=== PATIENT | female | born 1950 | race Caucasian/White ===

== ENCOUNTER 2018-02-01 16:41 | Inpatient (IN) | payer OTHER, BC ==
--- OUTSIDE RECORDS SUMMARY | 2018-02-01 16:43 | XMS REPORT | Clinical Summary ---
:1950 Author Organization [facility] Address [address] [place] [address] Care Team Providers Name Role Phone Moe Roach MD Primary Care Provider Allergies Active Allergy Reactions Severity Noted Date Comments Morphine Other (See Comments) 12/02/2015 VOMITING Other 12/02/2015 EGGS-N/V Current Medications Prescription Sig. Disp. Refills Start Date End Date Status levothyroxine Take 100 mcg by Active (LEVOTHROID) 100 MCG mouth every tablet morning. HYDROcodone-acetaminophen Take 1 tablet by Active (NORCO 10-325) 10-325 mg mouth every 6 (six) per tablet hours as needed for moderate pain. carvedilol (COREG) 12.5 Take 12.5 mg by Active MG tablet mouth 2 (two) times a day with meals. metoclopramide (REGLAN) 5 Take 5 mg by mouth Active MG tablet 4 (four) times a day. 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 Social History Tobacco Use Types Packs/Day Years Used Date Never Smoker Alcohol Use Drinks/Week oz/Week Comments No Sex Assigned at Date Recorded Not on file Last Filed Vital Signs Not on file Plan of Treatment Health Maintenance Due Date Last Done Comments BREAST CANCER SCREENING 11/09/1999 COLON CANCER SCREENING 11/09/1999 SHINGRIX VACCINE (#1) 11/09/1999 ZOSTER VACCINE 2009 PNEUMOCOCCAL POLYSACCHARIDE VACCINE AGE 65 AND OVER 2014 PNEUMOCOCCAL-13 2014 INFLUENZA VACCINE 01/24/2018 Implants Implanted Type Area Levelman Device Expiration Model / Identifier Date Serial / Lot Cement Bone Gm Hiviscocty 40gr Smartmix - [id number] Human N/A: DEPUY 2017 [id number] / Implanted: Qty: 1 on 12/09/2015 by Sancho Jason MD Tissue N/A ORTHO- KNEES / Implants [id number] Cement Bone Gm Hiviscocty 40gr Smartmix - [id number] Human Right: DEPUY [id number] / Implanted: Qty: 1 on 12/09/2015 by Sancho Jason MD Tissue Knee ORTHO- KNEES / Implants [id number] Clyde Fem Slv Ful Por 34mm - [id number] IPM IMPLANT Right: DEPUY 2024 [id number] / Implanted: Qty: 1 on 12/09/2015 by Sancho Jason MD DEVICES Knee [employer] [id number] Lps Univ Tib Hin Ins Sm 26mm - [id number] IPM IMPLANT Right: DEPUY 2016 [id number] / Implanted: Qty: 1 on 12/09/2015 by Sancho Jason MD DEVICES Knee [employer] [id number] S-Rom Noiles Rotating Hinge Noiles Rotating Hinge (Nrh) Knee Size 10 Mm Distal Augmentation Blocks, Extra Small/Small/Medium - [id number] IPM IMPLANT Right: DEPUY 07/26/2024 [id number] / Implanted: Qty: 1 on 12/09/2015 by Sancho Jason MD DEVICES Knee [employer] [id number] S-Rom Noiles Rotating Hinge Noiles Rotating Hinge (Nrh) Knee Size 10 Mm Distal Augmentation Blocks, Extra Small/Small/Medium - [id number] IPM IMPLANT Right: DEPUY 07/26/2024 [id number] / Implanted: Qty: 1 on 12/09/2015 by Sancho Jason MD DEVICES Knee [employer] [id number] Tray Rev Mbt 3x4.8mm - [id number] Knee Joint Right: DEPUY ORTHO 09/23/2025 [id number] / Implanted: Qty: 1 on 12/09/2015 by Sancho Jason MD Implants Knee / [id number] Sleeve Tib 45mm - [id number] Knee Joint Right: DEPUY 04/25/2025 [id number] / Implanted: Qty: 1 on 12/09/2015 by Sancho Jason MD Implants Knee ORTHO- KNEES / [id number] Stem Knee Flt Univl [id number] - [id number] Knee Joint Right: DEPUY 02/23/2025 [id number] / Implanted: Qty: 1 on 12/09/2015 by Sancho Jason MD Implants Knee ORTHO- KNEES / [id number] Stem Knee Flt Univl [id number] - [id number] Knee Joint Right: DEPUY 09/23/2025 [id number] / Implanted: Qty: 1 on 12/09/2015 by Sancho Jason MD Implants Knee ORTHO- KNEES / [id number] Component Fml Ant-Pstr Med-Lat Rt Rotng Hinge Sm [id number] - [id number] Knee Joint Right: DEPUY 03/25/2019 [id number] / Implanted: Qty: 1 on 12/09/2015 by Sancho Jason MD Implants Knee ORTHO- KNEES / [id number] Results Not on fileafter 01/31/2017 Insurance Payer Benefit Plan / Group Subscriber ID Type Phone Address MEDICARE MEDICARE PART A AND B xxxxxxxxxx Medicare [place], [place] BCBS BCBS OUT OF STATE xxxxxxxxxxxx PPO [phone] [place], [place] [id number]
--- NOTE | 2018-02-01 17:18 | RAD REPORT ---
EXAM DESCRIPTION: CT - Stone Protocol - 02/01/2018 5:07 pm CLINICAL HISTORY: Right flank pain COMPARISON: February 2016 TECHNIQUE: Axial 5 mm thick images were obtained without oral or IV contrast. The [id number] span s the entirety of the system including uppermost abdomen and lung bases. All CT scans are performed using dose optimization technique as appropriate and may include automated exposure control or mA/KV adjustment according to patient size. FINDINGS: Mild right-sided hydroureter and mild to moderate hydronephrosis of the pelvis on the righ t secondary to a 2 mm right UVJ calculus. Perinephric stranding and edema are present. A 2 mm calyx c alcification noted lower pole on the right. No left-sided calculus or hydronephrosis. No bladder calc ulus. No suspicious renal masses. Isodense masses and pyelonephritis are not excluded on a stone prot ocol CT scan. Uterus is absent. Ovaries are absent or atrophic. Imaged portions of the liver, spleen and pancreas show no suspicious findings on non-contrast imaging . Cholecystectomy clips are present. No biliary tree dilatation. No significant adrenal finding. No suspicious bowel findings. Sigmoid diverticulosis present without diverticulitis. No mass or bulky lymphadenopathy. Since the prior study there has been surgical repair of a ventral h ernia. There is stranding in the fatty tissues superficial and deep to the anterior abdominal wall. T hese findings are not outside of normal range for surgical procedure performed. There is no history t o indicate any localized symptoms. No air, abscess, foreign body or other suspicious finding at the h ernia repair site. No free air, free fluid or inflammatory stranding. No mass or bulky lymphadenopathy. No significant bony abnormality. IMPRESSION: Mild to moderate dilatation of the right-sided collecting system secondary to a 2 mm UVJ calculus. Isodense masses and pyelonephritis are not excluded on stone protocol technique.
[2018-02-01] MEDS ORDERED: MEPERIDINE HCL 25 MG/0.5 ML ONE (17:31)
[2018-02-01] MEDS ORDERED: ONDANSETRON 4 MG/2 ML VIAL ONE (17:31)
[2018-02-01] MEDS ORDERED: NA CHLORIDE 0.9% 500 ML ONE ×2 (17:39→18:53)
[2018-02-01] MEDS ORDERED: ACETAMINOPHEN 325 MG TABLET ONE (17:39)
[2018-02-01] MEDS ORDERED: TAMSULOSIN 0.4 MG SR CAP ONE (17:54)
[2018-02-01 18:29] LABS: Urine Blood 3+ (NEG); Urine Glucose NEGATIVE (NEG); Urine Protein 1+ (NEG)
[2018-02-01 18:35] LABS: Absolute Lymphocytes (CBC) 0.3 K/uL (0.7-4.9); Absolute Neutrophil 2.7 K/uL (1.8-8.0); Basophils % 0.4 % (0-1.3); Eosinophils % 2.8 % (0-4.4); Hematocrit 46.6 % (36.0-45.0); Lymphocytes % 9.5 % (15.3-44.8); MCH 31.5 pg (27.0-35.0); MCV 96.4 fL (80-100); MPV 10.5 fL (7.6-11.3); Monocytes % 0.4 % (3.3-12.3); RBC Red Blood Cell Count 4.83 M/uL (3.86-4.86)
[2018-02-01 18:37] LABS: Urine Amorphous Sediment TRACE /HPF (NONE SEEN); Urine Bacteria <20 /HPF (<20); Urine Culture Reflex Order REFLEXED; Urine RBC 20-50 /HPF (NONE SEEN)
--- NOTE | 2018-02-01 18:43 | ER ---
Nurse's Notes [facility] Name: Vera Chong Age: 67 yrs Sex: Female : 1950 Arrival Date: 02/01/2018 Time: 16:51 Bed 8 Private MD: Diagnosis: Pyelonephritis;Ureterolithiasis Presentation: 02/01 17:01 Presenting complaint: Patient states: I was sitting in the car and it felt like la1 something "broke loose" and I am having extremely bad back pain. It feels like a pulsating. Transition of care: patient was not received from another setting of care. Onset of symptoms was February 01, 2018. Risk Assessment: Do you want to hurt yourself or someone else? Patient reports no desire to harm self or others. Initial Sepsis Screen: Does the patient meet any 2 criteria? No. Patient's initial sepsis screen is negative. Does the patient have a suspected source of infection? No. Patient's initial sepsis screen is negative. Care prior to arrival: None. 17:01 Method Of Arrival: Wheelchair la1 17:01 Acuity: HOLLIE 2 la1 Historical: - Allergies: 17:03 Morphine; la1 - Home Meds: 17:37 hydrocodone-acetaminophen 10-325 mg Oral tab 1 tab every 4 hours [Active]; tizanidine 2 mg2 mg Oral cap every 6 hours [Active]; levothyroxine 100 mcg tab 1 tab once daily [Active]; Lyrica Oral [Active]; leflunomide 20 mg Oral tab 1 tab once daily [Active]; 17:42 carvedilol 12.5 mg Oral tab 1 tab 2 times per day [Active]; prednisolone Oral [Active]; mg2 19:00 alprazolam 0.25 mg Oral tab 1 tab 3 times per day [Active]; lisinopril 10 mg Oral tab 1 bp tab once daily [Active]; metoclopramide HCl 5 mg Oral tab 1 tab once daily [Active]; prednisone 1 mg Oral tab once daily [Active]; - PMHx: 17:03 Fibromyalgia; Hyperlipidemia; Hypertension; Hypothyroidism; Rheumatoid Arthritis; la1 - Immunization history:: Adult Immunizations up to date. - Social history:: Smoking status: unknown. - Family history:: not pertinent. - Ebola Screening: : No symptoms or risks identified at this time. - Hospitalizations: : No recent hospitalization is reported. Screenin:26 Abuse screen: Denies threats or abuse. Denies injuries from another. Nutritional mg2 screening: No deficits noted. Tuberculosis screening: No symptoms or risk factors identified. Fall Risk Gait- Weak (10 pts.). Assessment: 17:15 General: Appears uncomfortable, Behavior is anxious. Pain: Complains of pain in pelvis mg2 and right mid back Pain does not radiate. Pain currently is 10 out of 10 on a pain scale. Quality of pain is described as aching, Pain began gradually, Is intermittent, Aggravated by increased activity, repositioning, weight bearing. Neuro: Level of Consciousness is awake, alert, obeys commands, Oriented to person, place, time, situation. Cardiovascular: Capillary refill < 3 seconds Patient's skin is warm and dry. Respiratory: Airway is patent Respiratory effort is even, Respiratory pattern is regular, symmetrical, hyperventilation. GI: No signs and/or symptoms were reported involving the gastrointestinal system. : No signs and/or symptoms were reported regarding the genitourinary system. EENT: No signs and/or symptoms were reported regarding the EENT system. Derm: Skin is intact, Skin is pink, warm \\T\\ dry. normal. 17:15 Musculoskeletal: No signs and/or symptoms reported regarding the musculoskeletal system.mg2 19:00 Reassessment: RECD REPORT FROM PROSPER SHINE. 67YO WF P/W BACK AND FLANK PAIN. ADMIT IN bp PROCESS FOR FEVER AND 2MM R UVJ CALCULUS. 20:56 Reassessment: ADMIT COMPLETED, BED ASSIGNED, PT S/S RESOLVED, AFEBRILE AT THIS TIME. bp 21:09 Reassessment: Pt is A\\T\\O x 4, resp unlabored, IV site intact, family at bedside. Report bb called to Roni SHINE pt transferred to room 214 via stretcher. Vital Signs: 17:02 BP 170 / 89; Pulse 88; Resp 19; Temp 97.2; Pulse Ox 98% on R/A; la1 17:25 Weight 117.03 kg; Height 5 ft. 0 in. (152.40 cm); mg2 17:32 Temp 100.1(O); mg2 18:46 BP 195 / 100; Pulse 105; Resp 27; Pulse Ox 95% on 2 lpm NC; la1 18:58 Temp 102.4(O); la1 19:11 BP 166 / 94; Pulse 113; Resp 26; Pulse Ox 92% on 4 lpm NC; bp 20:54 BP 106 / 61; Pulse 99; Resp 20; Temp 97.8; Pulse Ox 92% ; bp 21:03 Temp 97.2(TE); bp 17:25 Body Mass Index 50.39 (117.03 kg, 152.40 cm) mg2 ED Course: 16:51 Patient arrived in ED. bd 16:52 Abner Carvajal MD is Attending Physician. rn 16:[address] vm2 17:00 Prosper Osborne, RN is Primary Nurse. la1 17:02 Triage completed. la1 17:02 Arm band placed on left wrist. la1 17:07 CT Stone Protocol In Process Unspecified. EDMS 17:11 EKG done, by pharmacy intake technician. reviewed by Abner Carvajal MD. sm3 17:44 Inserted saline lock: 24 gauge in left upper arm, using aseptic technique. Blood la1 collected. 17:45 Placed in gown. Bed in low position. Call light in reach. Side rails up X 1. Pulse ox la1 on. NIBP on. 18:23 Urine collected: straight cath specimen, cloudy. iw 18:41 Hipolito James MD is Hospitalizing Provider. rn 20:54 No provider procedures requiring assistance completed. Patient admitted, IV remains in bp place. Administered Medications: 17:03 CANCELLED (Duplicate Order): morphine 2 mg IVP once rn 17:42 Drug: Tylenol 650 mg Route: PO; la1 17:58 Follow up: Response: No adverse reaction la1 17:43 Drug: Demerol 25 mg Route: IVP; Site: left upper arm; la1 17:58 Follow up: Response: No adverse reaction; Pain is decreased la1 17:43 Drug: NS 0.9% 500 ml Route: IV; Rate: bolus; Site: left upper arm; la1 19:21 Follow up: IV Status: Completed infusion; IV Intake: 500ml bp 17:44 Drug: Zofran 4 mg Route: IVP; Site: left upper arm; la1 17:57 Follow up: Response: No adverse reaction; Nausea is decreased la1 17:57 Drug: Flomax 0.4 mg Route: PO; la1 17:58 Follow up: Response: No adverse reaction la1 17:57 Drug: Magnesium Sulfate 1 grams Route: IVPB; Infused Over: 1 hrs; Site: left upper arm; la1 19:21 Follow up: IV Status: Completed infusion; IV Intake: 50ml bp 18:57 Drug: NS 0.9% 500 ml Route: IV; Rate: bolus; Site: left upper arm; la1 19:20 Follow up: IV Status: Infusion continued upon admission bp 18:57 Drug: TORadol 30 mg Route: IVP; Site: left upper arm; la1 19:22 Follow up: Response: Pain is decreased bp 18:58 Drug: Rocephin - (cefTRIAXone) 1 grams Route: IVPB; Infused Over: 30 mins; Site: left la1 upper arm; 19:22 Follow up: IV Status: Completed infusion bp 19:03 Drug: Ibuprofen 800 mg Route: PO; ea 19:22 Follow up: Response: No adverse reaction bp Intake: 19:21 IV: 500ml; Total: 500ml. bp 19:21 IV: 50ml; Total: 550ml. bp Outcome: 18:42 Decision to Hospitalize by Provider. rn 21:08 Admitted to Tele accompanied by tech, family with patient, via stretcher, room 214, bb with oxygen, with chart, Report called to Roni SHINE 21:08 Condition: stable 21:11 Patient left the ED. bb Signatures: Dispatcher [employer] EDMS Andreina Barnes Brenda, RN RN bb Williams, Irene, Abner Burrows RN, MD MD rn Attema, Lee, RN RN la1 McGuire, Victoria [facility] Sowmya Jane RN RN ea Peltier, Brian, RN RN bp Gardose, Michele, Valentina Kaufman RN [facility]
--- NOTE | 2018-02-01 18:43 | EDPHYS ---
Physician Documentation [facility] Name: Vera Chong Age: 67 yrs Sex: Female : 1950 Arrival Date: 02/01/2018 Time: 16:51 Bed 8 Private MD: ED Physician Abner Carvajal HPI: 02/01 16:54 This 67 yrs old Female presents to ER via Unassigned with complaints of flank rn pain. 16:54 The patient complains of pain in the right mid back. The pain radiates to the pelvis. rn Onset: The symptoms/episode began/occurred 1.5 hour(s) ago. Modifying factors: The symptoms are alleviated by nothing. the symptoms are aggravated by movement. Severity of pain: At its worst the pain was moderate in the emergency department the pain is unchanged. The patient has not experienced similar symptoms in the past. Reports sudden onset right flank pain, radiates to right groin, no trauma, assoc with nausea/vomiting/diarrhea, no fever, no chest pain, feels sob when pain comes. Intermittent pain.. Historical: - Allergies: 17:03 Morphine; la1 - Home Meds: 17:37 hydrocodone-acetaminophen 10-325 mg Oral tab 1 tab every 4 hours [Active]; tizanidine 2 mg2 mg Oral cap every 6 hours [Active]; levothyroxine 100 mcg tab 1 tab once daily [Active]; Lyrica Oral [Active]; leflunomide 20 mg Oral tab 1 tab once daily [Active]; 17:42 carvedilol 12.5 mg Oral tab 1 tab 2 times per day [Active]; prednisolone Oral [Active]; mg2 19:00 alprazolam 0.25 mg Oral tab 1 tab 3 times per day [Active]; lisinopril 10 mg Oral tab 1 bp tab once daily [Active]; metoclopramide HCl 5 mg Oral tab 1 tab once daily [Active]; prednisone 1 mg Oral tab once daily [Active]; - PMHx: 17:03 Fibromyalgia; Hyperlipidemia; Hypertension; Hypothyroidism; Rheumatoid Arthritis; la1 - Immunization history:: Adult Immunizations up to date. - Social history:: Smoking status: unknown. - Family history:: not pertinent. - Ebola Screening: : No symptoms or risks identified at this time. - Hospitalizations: : No recent hospitalization is reported. ROS: 16:54 Constitutional: Negative for fever, chills, and weight loss, Eyes: Negative for injury, rn pain, redness, and discharge, Neck: Negative for injury, pain, and swelling, Cardiovascular: Negative for chest pain, palpitations, and edema, Respiratory: Negative for shortness of breath, cough, wheezing, and pleuritic chest pain, Abdomen/GI: + right flank pain, + nausea/vomiting/diarrhea Back: Negative for injury MS/Extremity: Negative for injury and deformity, Skin: Negative for injury, rash, and discoloration, Neuro: Negative for headache, weakness, numbness, tingling, and seizure. Exam: 16:54 Constitutional: This is a well developed, well nourished patient who is awake, alert, rn appears uncomfortable Head/Face: Normocephalic, atraumatic. Eyes: Pupils equal round and reactive to light, extra-ocular motions intact. Lids and lashes normal. Conjunctiva and sclera are non-icteric and not injected. Cornea within normal limits. Periorbital areas with no swelling, redness, or edema. Neck: Trachea midline, no thyromegaly or masses palpated, and no cervical lymphadenopathy. Supple, full range of motion without nuchal rigidity, or vertebral point tenderness. No Meningismus. Cardiovascular: tachycardic, regular, no murmur Respiratory: + mild tachypnea, no retractions, clear bilateral breath sounds Abdomen/GI: soft, mild right sided abd tenderness Back: No spinal tenderness. No CVA tenderness, mild right perilumbar muscular tenderness MS/ Extremity: Pulses equal, no cyanosis. Neurovascular intact. Full, normal range of motion. Equal circumference. Neuro: Awake and alert, GCS 15, oriented to person, place, time, and situation. Cranial nerves II-XII grossly intact. Motor strength 5/5 in all extremities. Sensory grossly intact. Cerebellar exam normal. Normal gait. Vital Signs: 17:02 BP 170 / 89; Pulse 88; Resp 19; Temp 97.2; Pulse Ox 98% on R/A; la1 17:25 Weight 117.03 kg; Height 5 ft. 0 in. (152.40 cm); mg2 17:32 Temp 100.1(O); mg2 18:46 BP 195 / 100; Pulse 105; Resp 27; Pulse Ox 95% on 2 lpm NC; la1 18:58 Temp 102.4(O); la1 19:11 BP 166 / 94; Pulse 113; Resp 26; Pulse Ox 92% on 4 lpm NC; bp 20:54 BP 106 / 61; Pulse 99; Resp 20; Temp 97.8; Pulse Ox 92% ; bp 21:03 Temp 97.2(TE); bp 17:25 Body Mass Index 50.39 (117.03 kg, 152.40 cm) mg2 MDM: 16:52 Patient medically screened. rn 18:34 Differential diagnosis: nephrolithiasis, pyelonephritis, UTI. Data reviewed: vital rn signs, nurses notes. 18:40 Counseling: I had a detailed discussion with the patient and/or guardian regarding: the rn historical points, exam findings, and any diagnostic results supporting the discharge/admit diagnosis, lab results, radiology results, the need for further work-up and treatment in the hospital. Response to treatment: the patient's symptoms have mildly improved after treatment, and as a result, I will admit patient. Admission orders: after a detailed discussion of the patient's condition and case, the admit orders are written by me. ED course: Pt with fever, UTI/pyelonephritis, 2mm stone, improved pain but febrile/tachycardic, and pain not controlled, will admit.. 02/01 16:54 Order name: Basic Metabolic Panel rn 02/01 16:54 Order name: CBC with Diff rn 02/01 16:54 Order name: Creatinine for Radiology; Complete Time: 18:33 rn 02/01 16:54 Order name: Hepatic Function rn 02/01 16:54 Order name: Lipase rn 02/01 16:54 Order name: Urine Microscopic Only; Complete Time: 18:39 rn 02/01 16:54 Order name: CT Stone Protocol; Complete Time: 17:30 rn 02/01 16:54 Order name: Troponin (emerg Dept Use Only); Complete Time: 18:33 rn 02/01 18:24 Order name: Urine Dipstick--Ancillary (enter results); Complete Time: 18:33 bd 02/01 18:39 Order name: Urine Culture EDGA 02/01 16:54 Order name: IV Saline Lock; Complete Time: 17:44 rn 02/01 16:54 Order name: Labs collected and sent; Complete Time: 17:44 rn 02/01 16:54 Order name: Urine Dipstick-Ancillary (obtain specimen); Complete Time: 18:23 rn 02/01 16:54 Order name: EKG - Nurse/Tech; Complete Time: 17:03 rn 02/01 16:54 Order name: EKG; Complete Time: 16:54 rn Administered Medications: 17:03 CANCELLED (Duplicate Order): morphine 2 mg IVP once rn 17:42 Drug: Tylenol 650 mg Route: PO; la1 17:58 Follow up: Response: No adverse reaction la1 17:43 Drug: Demerol 25 mg Route: IVP; Site: left upper arm; la1 17:58 Follow up: Response: No adverse reaction; Pain is decreased la1 17:43 Drug: NS 0.9% 500 ml Route: IV; Rate: bolus; Site: left upper arm; la1 19:21 Follow up: IV Status: Completed infusion; IV Intake: 500ml bp 17:44 Drug: Zofran 4 mg Route: IVP; Site: left upper arm; la1 17:57 Follow up: Response: No adverse reaction; Nausea is decreased la1 17:57 Drug: Flomax 0.4 mg Route: PO; la1 17:58 Follow up: Response: No adverse reaction la1 17:57 Drug: Magnesium Sulfate 1 grams Route: IVPB; Infused Over: 1 hrs; Site: left upper arm; la1 19:21 Follow up: IV Status: Completed infusion; IV Intake: 50ml bp 18:57 Drug: NS 0.9% 500 ml Route: IV; Rate: bolus; Site: left upper arm; la1 19:20 Follow up: IV Status: Infusion continued upon admission bp 18:57 Drug: TORadol 30 mg Route: IVP; Site: left upper arm; la1 19:22 Follow up: Response: Pain is decreased bp 18:58 Drug: Rocephin - (cefTRIAXone) 1 grams Route: IVPB; Infused Over: 30 mins; Site: left la1 upper arm; 19:22 Follow up: IV Status: Completed infusion bp 19:03 Drug: Ibuprofen 800 mg Route: PO; ea 19:22 Follow up: Response: No adverse reaction bp Disposition: 02/01/18 18:42 Hospitalization ordered by Hipolito James for Inpatient Admission. Preliminary diagnosis are Pyelonephritis, Ureterolithiasis. - Bed requested for Telemetry/MedSurg (Inpatient). - Status is Inpatient Admission. bb - Condition is Stable. - Problem is new. - Symptoms have improved. UTI on Admission? Yes Signatures: Dispatcher [employer] EDMS Khushboo Schroeder, RN Maribel Garvey RN RN bb Nieto, Roman, MD MD rn Attema, Lee RN FÁTIMA la1 Sowmya Jane RN Fredi Kothari ea RN RN bp Arnie Daniel RN RN mg2 Corrections: (The following items were deleted from the chart) 17:03 16:54 morphine 2 mg IVP once ordered. rn rn 20:07 18:42 Hospitalization Ordered by Hipolito James MD for Inpatient Admission. Preliminary diagnosis is Pyelonephritis; Ureterolithiasis. Bed requested for Telemetry/MedSurg (Inpatient). Status is Inpatient Admission. Condition is Stable. Problem is new. Symptoms have improved. UTI on Admission? Yes. rn 21:11 20:07 02/01/2018 18:42 Hospitalization Ordered by Hipolito James MD for Inpatient bb Admission. Preliminary diagnosis is Pyelonephritis; Ureterolithiasis. Bed requested for Telemetry/MedSurg (Inpatient). Status is Inpatient Admission. Condition is Stable. Problem is new. Symptoms have improved. UTI on Admission? Yes. sameer
[2018-02-01] MEDS ORDERED: KETOROLAC 30 MG/ML INJ ONE (18:53)
[2018-02-01] MEDS ORDERED: CEFTRIAXONE/SWI 1gm 1 GM/10 ML SYR ONE (18:54)
[2018-02-01] MEDS ORDERED: IBUPROFEN 400 MG TAB ONE (19:06)
--- NOTE | 2018-02-01 21:01 | P.HP ---
Certification for Inpatient Patient admitted to: Inpatient With expected LOS: >2 Midnights Practitioner: I am a practitioner with admitting privileges, knowledge of patient current condition, hospital course, and medical plan of care. Services: Services provided to patient in accordance with Admission requirements found in Title 42 Section 412.3 of the Code of Federal Regulations Patient History Date of Service: 02/01/18 Reason for admission: obsturctive urinary stone History of Present Illness: Ms Chong is a 67 years old woman with history of HTN, Dyslipidemia, hypothyroidism, obesity, and RA, who start about 3:00 PM today, with severe right flank pain, radiated to right yasir. Intensity was 10/10, described as colicky, associated with nausea and vomiting. She has never had this problem in the past. She denied fever but has had chills this afternoon. In ED lab work was remarkable for 3.1K WBC, afebrile, BMP is still pending. CT stone protocol remarkable for mild to moderate dilatation of the right-sided collecting system secondary to a 2 mm UVJ calculus. Possible Pyelonephritis. Allergies No Known Allergies Allergy (Unverified 06/09/17 11:37) Home medications list reviewed: Yes Home Medications: Carvedilol [Coreg*] 12.5 mg PO BID 03/04/16 Metoclopramide HCl [Reglan] 5 mg PO Q6H 03/04/16 Tizanidine HCl 2 mg PO BID 03/04/16 ALPRAZolam [Xanax*] 0.25 mg PO BID PRN 06/08/17 Calcium Carbonate [Calcium] 1,500 mg PO DAILY 06/08/17 Cholecalciferol (Vitamin D3) [Vitamin D 1000 Iu Tab*] 1,000 unit PO DAILY Hydrocodone 10/APAP 325 [[place] 10/325*] 1 tab PO TIDP PRN 06/08/17 Leflunomide 20 mg PO DAILY 06/08/17 Levothyroxine [Synthroid*] 0.1 mg PO [id number] 06/08/17 Lisinopril [Prinivil*] 10 mg PO DAILY AFTER SUPPER 06/08/17 Hydrocodone 7.5/APAP 325 [[place] 7.5/325 mg*] 1 tab PO Q4H PRN tab 06/11/17 - Past Medical/Surgical History Diabetic: No -: Fibromyalgia -: Rheumatoid arthritis -: Hyperlipidemia -: Hypertension -: Hypothyroidism -: Obesity -: Chronic knee pain -: Chronic back pain -: Back surgery -: Bilat knee replacement -: Hysterectomy -: Cholecystectomy -: Thyroidectomy -: Appendectomy Psychosocial/ Personal History: She is . She has 1 child. She does not work. - Family History Family History: Reviewed- Non-Contributory - Family History Father -: Cancer Mother -: Heart disease, Hypertension, Stroke - Social History Smoking Status: Never smoker Alcohol use: No CD- Drugs: No Caffeine use: No Place of Residence: Home Review of Systems 10-point ROS is otherwise unremarkable Physical Examination - Physical Exam General: Alert, In no apparent distress HEENT: Atraumatic, PERRLA, Mucous membr. moist/pink, EOMI, Sclerae nonicteric Neck: Supple, 2+ carotid pulse no bruit, No LAD, Without JVD or thyroid abnormality Respiratory: Clear to auscultation bilaterally, Normal air movement Cardiovascular: Regular rate/rhythm, Normal S1 S2 Gastrointestinal: Normal bowel sounds, No tenderness Musculoskeletal: Tenderness (right flank) Integumentary: No rashes Neurological: Normal speech, Normal strength at 5/5 x4 extr, Normal tone, Normal affect Lymphatics: No axilla or inguinal lymphadenopathy - Studies Laboratory Data (last 24 hrs) 02/01/18 17:30: Creatinine 1.20 02/01/18 17:30: WBC 3.1 L, Hgb 15.2 H, Hct 46.6 H, Plt Count 148 L Assessment and Plan - Problems (Diagnosis) (1) Hydronephrosis with renal and ureteral calculous obstruction Current Visit: Yes Status: Acute (2) Hypertension Onset Date: 02/17/15 Current Visit: No Status: Chronic Qualifiers: Hypertension type: essential hypertension Qualified Code(s): I10 - Essential (primary) hypertension (3) Hypothyroidism Onset Date: 02/17/15 Current Visit: No Status: Chronic Qualifiers: Hypothyroidism type: unspecified Qualified Code(s): E03.9 - Hypothyroidism , unspecified (4) Obesity Onset Date: 03/04/16 Current Visit: No Status: Chronic Qualifiers: Obesity type: unspecified obesity type Qualified Code(s): E66.01 - Morbid ( severe) obesity due to excess calories (5) Rheumatoid arthritis Current Visit: No Status: Chronic Qualifiers: Rheumatoid arthritis location: multiple sites Rheumatoid factor presence: unspecified presence Qualified Code(s): M06.9 - Rheumatoid arthritis, unspecified - Plan The patient will be admitted to the hospital due to obstructive right UVJ stone. Will start empiric antibiotic treatment, pain medication, IV fluids, keep her NPO, consult Dr Helms. - Advance Directives Does patient have a Living Will: No Does patient have a Durable POA for Healthcare: No - Code Status/Comfort Care Code Status Assessed: Yes Code Status: Full Code
--- NOTE | 2018-02-01 21:20 | EKG ---
Test Date: 2018-02-01 Test Time: 16:55:02 [facility] Professional: DONNY MEASUREMENT RESULTS: Intervals: Rate: 82 HI: 172 QRSD: 76 QT: 346 QTc: 404 [place]: P: 37 HI: 172 QRS: 31 T: 59 INTERPRETIVE STATEMENTS: Normal sinus rhythm Normal ECG Compared to ECG 03/03/2016 23:51:37 No significant changes Electronically Signed On 02-01-18 21:20:04 CDT by Luis Miguel Javed
[2018-02-01 21:24] LABS: Potassium 3.6 mmol/L (3.5-5.1)
[2018-02-01 21:25] LABS: Bilirubin Total 1.5 mg/dL (0.2-1.0); Protein, Total 6.2 g/dL (6.4-8.2)
[2018-02-01 21:45] LABS: Blood Morphology Comment NOT SEEN (NOT SEEN); Platelet Estimate ADEQ
[2018-02-01] MEDS ORDERED: ACETAMINOPHEN 500 MG TAB PO PRN (21:45)
[2018-02-01] MEDS ORDERED: Levofloxacin 750mg IV 750 MG/150 ML BAG IV SCH (22:00)
[2018-02-01] MEDS ORDERED: KCL 20 MEQ/100 mL IVPB 20 MEQ/100 ML BAG IV SCH (22:00)
[2018-02-01] MEDS: NA CHLORIDE 0.9% 1,000 ML IV SCH (22:08)
[2018-02-02] MEDS: ONDANSETRON 4 MG/2 ML VIAL IV PRN (05:15)
[2018-02-02] MEDS: KETOROLAC 30 MG/ML INJ IV PRN (05:22)
[2018-02-02 05:35] LABS: Absolute Lymphocytes (CBC) 0.5 K/uL (0.7-4.9); Absolute Monocytes 1.1 K/uL (0.1-1.3); Absolute Neutrophil 19.2 K/uL (1.8-8.0); Basophils % 0.4 % (0-1.3); Eosinophils % 0.3 % (0-4.4); Hematocrit 39.4 % (36.0-45.0); Lymphocytes % 2.6 % (15.3-44.8); MCH 31.8 pg (27.0-35.0); MCV 97.3 fL (80-100); Monocytes % 5.1 % (3.3-12.3); RBC Red Blood Cell Count 4.04 M/uL (3.86-4.86)
[2018-02-02 05:39] LABS: Potassium 4.6 mmol/L (3.5-5.1)
[2018-02-02 06:20] LABS: Blood Morphology Comment NOT SEEN (NOT SEEN); Platelet Estimate DECR
[2018-02-02] MEDS: PANTOPRAZOLE 40MG TABLET PO SCH (06:21)
[2018-02-02] MEDS ORDERED: LOPERAMIDE HCL 2 MG CAPSULE PO PRN (08:58)
[2018-02-02] MEDS: HYDROCODONE/APAP 7.5/325 MG TAB PO SCH ×3 (09:00→22:57)
[2018-02-02] MEDS ORDERED: HOME MED 1 EA UNK (Leflunomide [Leflunomide] 20 MG) PO SCH (09:00)
[2018-02-02] MEDS: TIZANIDINE 4 MG TABLET PO SCH ×2 (09:00→21:00)
[2018-02-02] MEDS: PREGABALIN 50 MG CAP PO SCH ×2 (09:00→20:58)
[2018-02-02] MEDS ORDERED: PREDNISOLONE 5 MG PO SCH (09:00)
[2018-02-02] MEDS: CARVEDILOL 12.5 MG TAB PO SCH ×2 (09:00→20:54)
[2018-02-02] MEDS: LEVOTHYROXINE SOD 0.1 MG TAB PO SCH (09:00)
[2018-02-02] MEDS: NA CHLORIDE 0.9% 1,000 ML IV SCH ×3 (09:46→22:57)
--- NOTE | 2018-02-02 10:48 | RAD REPORT ---
EXAM DESCRIPTION: RAD - Chest Single View - 02/02/2018 10:31 am CLINICAL HISTORY: Hypotension COMPARISON: February 2016 TECHNIQUE: AP portable chest image was obtained 1014 hours . FINDINGS: Lung volumes are relatively low. Large body habitus and portable technique further limit t he examination. When adjusting for these limitations, lung parenchyma not substantially different fro 2015 comparison. No peripheral mass, consolidation or significant failure finding. Prominence of th e right side mediastinum is probably due to shallow inspiration, body habitus and portable technique affects. This can be monitored on subsequent imaging. Heart size is magnified by exam limitations. No measurable pleural effusion and no pneumothorax. No gross bony abnormality seen. No acute aortic fin dings suspected. IMPRESSION: Exam is limited by body habitus, portable technique and shallow inspiration. Acute cardiopulmonary process is doubtful.
[2018-02-02] MEDS ORDERED: SODIUM BICARB 50 MEQ/50ML VIAL IV ONE ×2 (11:20→12:35)
[2018-02-02 11:26] LABS: Arterial Blood Carboxyhemoglob 1.5 % (0-1.5)
[2018-02-02] MEDS ORDERED: GENTAMICIN 80 MG/100 ML BAG 80 MG/100 ML BAG IV ONE (11:43)
[2018-02-02] MEDS ORDERED: NOREPINEPHRINE 4 MG in D5W 250 ML IV PRN (12:10)
[2018-02-02] MEDS: CEFTRIAXONE/SWI 1gm 1 GM/10 ML SYR IV SCH ×2 (12:11→17:49)
--- NOTE | 2018-02-02 13:48 | CON ---
History Of Present Illness: She is a 67-year-old lady, who came in for right flank pain, says she thought it was a sciatica. She was diagnosed with a 2 mm stone in her right UVJ with moderate dilation of the right collecting system, possible pyelonephritis. She has been septic now and hyportensive, 60-80/palp so she has been transferred to ICU for stabilization. Once she is stable, she needs to be drain BALJINDER. I tried to do a cysto and a right stent placement without flushing any infection on the back system using a very minimal amount of retrograde contrast. Our option will be a percutaneous nephrostomy, but this would mean transferring to [place] and that may take a while to do that. She has no history of diabetes or anything like that. Allergies: NO KNOWN DRUG ALLERGIES. Home Medications: Coreg, Reglan, __, Xanax, calcium, vitamin D3, hydrocodone, Leflunomide, levothyroxine, lisinopril, hydrocodone. Past Medical History: Fibromyalgia, rheumatoid arthritis, hyperlipidemia, hypertension, hypothyroidism, obesity, chronic knee pain, chronic back pain, back surgery, bilateral knee replacement, hysterectomy, cholecystectomy, thyroidectomy, appendectomy. Personal History: She is , has 1 child. Does not work. Family History: Noncontributory. Father had cancer. Mother had heart disease. Social History: Never smoked. No alcohol use. No drug use. No caffeine use. Resides at home. Review of Systems: A 10-point review of systems is otherwise unremarkable as stated above. Physical Examination: Vital Signs: Temperature 97.4, pulse 83, respirations 18, BP 191/53, sats 97%. General: She is alert and oriented, in no apparent distress. HEENT: Atraumatic , normocephalic. Neck: Supple. Respiratory: Clear. Cardiovascular: S1-S2. Gastrointestinal: Soft. Musculoskeletal: Some tenderness right flank. Skin: No rashes. Neurologic: Normal speech. Moving all extremities. Lymphatics: Normal. Laboratory Studies: Showed white count jumped overnight from 3.1-20,900. Her bandemia went from 7-18. Her H and H are 12.8 and 39. She had a blood gas slightly acidotic, pH 7.29, pCO2 46, PO2 111 base, bicarb 21.3, base excess -3. Chemistry; sodium 142, potassium 4.2, chloride 112, carbon dioxide 23, BUN 24 , creatinine 1.8, GFR 28, glucose 151, calcium 7.3. Urine is growing gram- negative rods. She is on Levaquin so far, we may add gentamicin to her regimen for surgery, possible consider Rocephin due to Levaquin resistance in the community. Assessment: A 2-mm stone right ureterovesical junction causing pyelonephritis and sepsis. Plan: Stabilize her in ICU and take her down for cysto and stent placement. Unable to do ureteroscopy at this time due to her overwhelming infection. Other possibility of transfer, negative percutaneous tube placed in [place], this will take a while and will be delayed to get that done. We certainly can trial cysto and stent placement here. It will be a lot easier and quicker for her. Went over all general information, alternatives, and risks and wishes to proceed. Proper informed consent was obtained. Also consider iron, Rocephin, and gentamicin to her antibiotic regimen. ELIZABETH/JULES Voice ID: [id number] Report ID: [id number] DAVID
--- NOTE | 2018-02-02 13:50 | RAD REPORT ---
EXAM DESCRIPTION: RAD - Chest Single View - 02/02/2018 1:44 pm CLINICAL HISTORY: PICC line placement COMPARISON: None. FINDINGS: Portable chest was obtained following placement of a left upper extremity PICC line. The c atheter tip is in the mid SVC.
[2018-02-02] MEDS ORDERED: FENTANYL CITR 100 MCG/2 ML ONE (14:13)
[2018-02-02] MEDS ORDERED: LIDOCAINE 2% MPF 5 ML VIAL ONE (14:13)
[2018-02-02] MEDS ORDERED: PROPOFOL 200 MG/20 ML VIAL IV ONE (14:13)
[2018-02-02] MEDS ORDERED: ETOMIDATE 20 MG/10 ML VIAL IV ONE (14:39)
--- NOTE | 2018-02-02 15:09 | PN ---
Date of Progress Note: 02/02/2018 Subjective: The patient seen and examined, chart reviewed, and case discussed with RN. The patient was doing well when initially evaluated, however, nurse called to state that the patient's blood pressure has decreased to systolics 80s over 60s. The patient was re-evaluated. Complaining of some shortness of breath and a headache. No chest pain. No dizziness. Review of Systems: Negative except as above. Medications: List reviewed. Objective: Vital Signs: Temperature 97.4, heart rate 83, blood pressure 91/53 , respirations 18, O2 97% on room air. General: awake, alert, oriented x3. Elderly female, morbidly obese, BMI 49.6, ill-appearing. CV: S1, S2. No murmurs. Peripheral pulses present. Cap refill<2 secs Respiratory: Moving air well bilaterally. No wheezing Gastrointestinal: Abdomen is soft, nontender, nondistended. Positive bowel sounds. Extremities: No clubbing, cyanosis, edema. Neurologic: Nonfocal. Laboratory Data: Sodium 142, potassium 4.6, chloride 112, CO2 23, BUN 24, creatinine 1.8, glucose 151, calcium 7.3. WBC 20.9, H and H 12.8, 39.4, platelets 120, neutrophils 91%, 18% bands. Urine culture preliminary report shows 4+ gram-negative rods. Blood cultures pending. Assessment And Plan: 1. Hydronephrosis with renal and ureteral calculus obstruction. 2. Essential hypertension. 3. Hypothyroidism. 4. Morbid obesity, body mass index 49.6. 5. Rheumatoid arthritis, on steroids and DMARDs. We will hold steroids due to current infection. We will check a cortisol level. 6. hypotensive shock. White count has jumped up to 20,000. We will obtain lactate, procalcitonin level, ABG, obtain chest x-ray. We will give IV fluids, normal saline bolus x1. Recheck blood pressure and repeat. Transfer to ICU for close monitoring. May need to be initiated on pressors. Code status Full Overall guarded prognosis. 7/ Sepsis SA/MODL Voice ID: [id number] Report ID: [id number] [facility]
--- NOTE | 2018-02-02 15:59 | RAD REPORT ---
EXAM DESCRIPTION: RAD - Cystography - 02/02/2018 3:15 pm FINDINGS: Fluoroscopic assisted retrograde cystogram performed. There were is 10 images obtained. Fl uoro time was 0.28 minutes with a cumulative dose of 12.5 mGy. Images show stepwise placement of a pigtail catheter into the right collecting system. No suspicious or unexpected finding.
[2018-02-02] MEDS ORDERED: NA CHLORIDE 0.9% 1,000 ML ONE (16:00)
[2018-02-03] MEDS: KETOROLAC 30 MG/ML INJ IV PRN ×2 (01:17→15:21)
[2018-02-03] MEDS: ONDANSETRON 4 MG/2 ML VIAL IV PRN ×3 (03:00→22:45)
[2018-02-03] MEDS: NA CHLORIDE 0.9% 1,000 ML IV SCH (06:30)
[2018-02-03] MEDS: PANTOPRAZOLE 40MG TABLET PO SCH (06:30)
[2018-02-03 07:13] VITALS: BMI 50.1
[2018-02-03 08:40] LABS: Absolute Lymphocytes (CBC) 0.9 K/uL (0.7-4.9); Absolute Monocytes 0.8 K/uL (0.1-1.3); Absolute Neutrophil 11.5 K/uL (1.8-8.0); Basophils % 0.3 % (0-1.3); Eosinophils % 1.7 % (0-4.4); Hematocrit 36.5 % (36.0-45.0); Lymphocytes % 6.5 % (15.3-44.8); MCH 31.8 pg (27.0-35.0); RBC Red Blood Cell Count 3.77 M/uL (3.86-4.86)
[2018-02-03] MEDS: LEVOTHYROXINE SOD 0.1 MG TAB PO SCH (09:00)
[2018-02-03] MEDS: CARVEDILOL 12.5 MG TAB PO SCH ×2 (09:00→22:42)
[2018-02-03] MEDS ORDERED: NA CHLORIDE 0.9% 1,000 ML IV SCH (09:00)
[2018-02-03] MEDS: TIZANIDINE 4 MG TABLET PO SCH ×2 (09:00→22:44)
[2018-02-03] MEDS: PREGABALIN 50 MG CAP PO SCH ×2 (09:00→22:42)
[2018-02-03] MEDS: PROMETHAZINE 25 MG/ML VIAL IV PRN ×2 (09:02→15:21)
[2018-02-03 09:15] LABS: Albumin 2.2 g/dL (3.4-5.0); Bilirubin Total 0.7 mg/dL (0.2-1.0); Potassium 3.8 mmol/L (3.5-5.1); Protein, Total 5.2 g/dL (6.4-8.2)
--- NOTE | 2018-02-03 11:34 | PN ---
Subjective: The patient has complained about a headache. I have given her Tylenol and Toradol for pain relief. Objective: Vital Signs: Temperature 97.9, pulse 78, respirations 16, BP 157/90 , and no pressures, this is all on her own. Oxygen sats 96% on 2 L. She is a bit edematous this morning Laboratory Data: Her laboratories are pending. Is and Os. Assessment: Urosepsis from right, 2-mm UVJ stone status post stent placement. She turned around well yesterday after she was hyportensive on pressers when she went to the OR and back. She is doing well this morning and is off pressers. She will be transferred to the floor on terms of her culture, she is growing gram-negative rods in the urine. Also sent a culture from yesterday from right kidney but it is not seen on computer. Assessment : urosepsis and s/p stent in position working well. Labs are pending today. ELIZABETH/JULES Voice ID: [id number] Report ID: [id number] DAVID
[2018-02-03] MEDS: LABETALOL HCL 100 MG/20 ML IV PRN (12:51)
--- NOTE | 2018-02-03 13:14 | PN ---
Date of Progress Note: 02/03/2018 Subjective: The patient is seen and examined, chart reviewed and case discussed with RN and Dr. Helms. The patient did well postoperatively, feeling better, however, still has some intractable nausea and dry heaving. Also complains of headache. Review of Systems: Negative except as above. Medications: List reviewed. Physical Examination: Vital Signs: Temperature 97.9, heart rate 78, blood pressure 157/90, respirations 16, O2 95% on 2 L via nasal cannula. General: Awake, alert, oriented x3, ill-appearing, morbidly obese female, elderly. CV: S1, S2. Regular rate and rhythm. Peripheral pulses present. Respiratory: Some diminished breath sounds at the bases, otherwise moving air well. No wheezing or stridor. Gastrointestinal: Abdomen is soft, nontender, nondistended. Positive bowel sounds. No guarding or rigidity. Extremities: No clubbing, cyanosis. The patient does have 2+ edema bilaterally , lower extremities and right upper extremity. Neurologic: Nonfocal. Laboratory Data: Sodium 148, potassium 3.8, chloride 118, CO2 23, BUN 19, creatinine 1.3, glucose 109, calcium 6.6, albumin 2.2. WBC 13.4, H and H 12 and 36.5, platelets 93, neutrophils 85%, no bands. Urine culture growing E coli. Blood cultures, no growth to date. C. diff test is pending. Assessment And Plan: A 67-year-old female with: 1. Sepsis secondary to pyelonephritis, improving. White count is trending down. Procalcitonin is down to 60. We will continue with IV antibiotics and follow up on blood cultures. Urine cultures growing E coli. 2. Septic shock. The patient now off Levophed. Blood pressure now on the high side at 150s to 170s. Adjust IVFs 3. Acute pyelonephritis. Continue IV antibiotics secondary to Escherichia coli, status post cystoscopy and placement of right double-J stent. 4. Hypocalcemia. We will replace, corrected calcium is 8. 5. Essential hypertension. 6. Hypothyroidism. Continue home medications. 7. Morbid obesity. BMI 49.6. 8. Rheumatoid arthritis. Steroids and DMARDs on hold due to sepsis. 9. Hydronephrosis with renal and ureteral calculus obstruction status post cystoscopy and double-J stent. 10. Intractable nausea and vomiting: add phenergan 11. Right upper ext swelling: obtain doppler to rule out DVT. Plan: Step-down from ICU. SA/MODL Voice ID: [id number] Report ID: [id number] MTDD
[2018-02-03] MEDS: HYDRALAZINE HCL 20 MG/ML VIAL IV PRN (14:00)
[2018-02-03] MEDS ORDERED: HYDRALAZINE HCL 20 MG/ML VIAL ONE (14:02)
[2018-02-03] MEDS: CALCITROL 0.25 MCG CAP PO SCH (14:14)
[2018-02-03] MEDS ORDERED: METHOCARBAMOL IV ONE ×2 (16:00→17:23)
[2018-02-03] MEDS ORDERED: NA CHLORIDE 0.9% IV ONE ×2 (16:00→17:23)
[2018-02-03] MEDS: CEFTRIAXONE/SWI 1gm 1 GM/10 ML SYR IV SCH (17:00)
[2018-02-03] MEDS: VANCOMYCIN ORAL SOLN 250 MG/5 ML OSYR PO SCH ×2 (18:00→22:48)
--- NOTE | 2018-02-03 21:59 | RAD REPORT ---
EXAM DESCRIPTION: US - UPPER EXTREMITY VENOUS UNILATE - 02/03/2018 9:46 pm CLINICAL HISTORY: Right upper extremity swelling and pain. COMPARISON: None FINDINGS: The right upper extremity deep venous system was interrogated utilizing Doppler technique. No evidence of DVT seen. IMPRESSION: Negative for right upper extremity DVT.
[2018-02-03] MEDS: HYDROCODONE/APAP 7.5/325 MG TAB PO SCH (22:42)
[2018-02-04] MEDS: PANTOPRAZOLE 40MG TABLET PO SCH (06:09)
[2018-02-04] MEDS: VANCOMYCIN ORAL SOLN 250 MG/5 ML OSYR PO SCH ×4 (06:09→23:45)
[2018-02-04 06:49] LABS: Absolute Lymphocytes (CBC) 0.9 K/uL (0.7-4.9); Absolute Monocytes 0.7 K/uL (0.1-1.3); Absolute Neutrophil 9.6 K/uL (1.8-8.0); Basophils % 0.9 % (0-1.3); Eosinophils % 2.3 % (0-4.4); Hematocrit 37.6 % (36.0-45.0); MCH 31.8 pg (27.0-35.0); MCV 96.8 fL (80-100); MPV 11.1 fL (7.6-11.3); Monocytes % 6.1 % (3.3-12.3); RBC Red Blood Cell Count 3.89 M/uL (3.86-4.86)
[2018-02-04 07:02] LABS: Albumin 2.4 g/dL (3.4-5.0); Bilirubin Total 0.5 mg/dL (0.2-1.0); Potassium 3.9 mmol/L (3.5-5.1); Protein, Total 5.5 g/dL (6.4-8.2)
[2018-02-04 09:26] LABS: Blood Morphology Comment NOT SEEN (NOT SEEN); Platelet Estimate DECR; Urine White Blood Cell Casts OK
[2018-02-04] MEDS: TIZANIDINE 4 MG TABLET PO SCH ×2 (10:06→19:59)
[2018-02-04] MEDS: HYDROCODONE/APAP 7.5/325 MG TAB PO SCH ×2 (10:07→20:00)
[2018-02-04] MEDS: CALCITROL 0.25 MCG CAP PO SCH (10:07)
[2018-02-04] MEDS: LACTOBACILLUS/ACIDOPHILUS TAB PO SCH ×3 (10:07→20:00)
[2018-02-04] MEDS: LEVOTHYROXINE SOD 0.1 MG TAB PO SCH (10:08)
[2018-02-04] MEDS: CARVEDILOL 12.5 MG TAB PO SCH ×2 (10:08→19:59)
[2018-02-04] MEDS: PREGABALIN 50 MG CAP PO SCH ×2 (10:08→19:59)
--- NOTE | 2018-02-04 10:41 | PN ---
Subjective: The patient is doing better. Objective: Vital Signs: 96.8, 76, 20, BP 140/76, O2 saturation 93%. The blood pressure is off pressors, not normal pressures. Laboratory Data: White count 20,900 high, now down to 11,500 now. Her urine culture grew E. coli, pretty much pansensitive to all antibiotics, except Keflex. She had negative DVT study. Assessment: Urosepsis status post right double-J stent. The patient has been Stable since procedure. She requested to leave the Multani in the day and to take the Multani out in the morning. She should really go home on p.o. antibiotics, possibly tomorrow. ELIZABETH/JULES Voice ID: [id number] Report ID: [id number] [facility]TDD
--- NOTE | 2018-02-04 12:10 | PN ---
Date of Progress Note: 02/04/2018 Subjective: The patient is seen and examined. Chart reviewed and case discussed with RN. The patie nt had significant amount of nausea and vomiting yesterday, which was difficult to treat; however, no w has improved. She was found to be positive for C. diff on isolation. States that her diarrhea has slowed down, able to tolerate her diet. Review of Systems: Negative except as above. Medications: List reviewed. Physical Examination: Vital Signs: Temperature 96.9, heart rate 76, blood pressure 166/75, respirations 17, O2 saturation 94% on room air. General: Awake, alert, oriented x3, not in any acute distress, morbidly obese female, BMI 50, slight ly ill appearing. CV: S1, S2. No murmurs. Regular rate and rhythm. Peripheral pulses present. Respiratory: Moving air well bilaterally. No wheezing. No stridor. No use of accessory muscles. Gastrointestinal: Abdomen is soft. Mild tenderness to palpation. No guarding or rigidity. No palp able masses. Extremities: No clubbing, cyanosis, edema. Neurologic: Nonfocal. Laboratory Data: Sodium 148, potassium 3.9, chloride 116, CO2 24, BUN 14, creatinine 1.1, glucose 76 , calcium 7.2. AST 24, ALT 32, alkaline phosphatase 105, albumin 2.4. WBC 11.5, H and H 12.3 and 37 .6, platelets 92, neutrophils 82%. No bands. Urine culture growing E. coli, essentially pansensitiv e. Blood cultures, no growth to date. C. diff assay is positive. Assessment And Plan: A 67-year-old female with: 1.Sepsis secondary to pyelonephritis and Clostridium diff, improving. Procalcitonin trending down. White count is also trending down. Urine cultures growing Escherichia coli. 2.Septic shock, now off Levophed. 3.Acute pyelonephritis secondary to Escherichia coli. We will continue IV antibiotics. 4.Hypocalcemia, corrected. 5.Hydronephrosis with renal and ureteral calculus obstruction status post cystoscopy and double-J st ent. Appreciate Dr. Helms's input. 6.Essential hypertension with uncontrolled blood pressure. Medications added. More stable now. 7.Hypothyroidism, stable. 8.Morbid obesity, BMI 50. 9.Rheumatoid arthritis. Steroids and DMARDs on hold due to sepsis. 10.Intractable nausea and vomiting, resolving. 11.Clostridium difficile colitis, on oral vancomycin. Stools are becoming less frequent. The patie nt able to tolerate her diet. We will continue to monitor. Multani catheter to come out in a.m. 12.Right upper extremity swelling. Doppler negative for deep venous thrombosis. 13.Hypernatremia. 14.Gastrointestinal and deep venous thrombosis prophylaxis addressed. Plan: Continue antibiotics, likely discharge in the next 24-48 hours if continues to improve. /JULES Voice ID: [id number] Report ID: [id number]
[2018-02-04] MEDS: LABETALOL HCL 100 MG/20 ML IV PRN (14:06)
[2018-02-04] MEDS ORDERED: METHOCARBAMOL IV ONE (17:18)
[2018-02-04] MEDS ORDERED: NA CHLORIDE 0.9% IV ONE (17:18)
[2018-02-04] MEDS: CEFTRIAXONE/SWI 1gm 1 GM/10 ML SYR IV SCH (17:51)
[2018-02-04] MEDS: ENOXAPARIN 40 MG/0.4 ML SQ SCH (17:52)
[2018-02-04] MEDS: HYDRALAZINE HCL 20 MG/ML VIAL IV PRN (19:59)
[2018-02-05 05:37] LABS: Absolute Lymphocytes (CBC) 1.1 K/uL (0.7-4.9); Absolute Monocytes 0.7 K/uL (0.1-1.3); Absolute Neutrophil 4.6 K/uL (1.8-8.0); Eosinophils % 4.9 % (0-4.4); Hematocrit 38.7 % (36.0-45.0); Lymphocytes % 16.3 % (15.3-44.8); MCH 31.8 pg (27.0-35.0); MCV 96.6 fL (80-100); Monocytes % 10.6 % (3.3-12.3)
[2018-02-05 05:55] LABS: Albumin 2.5 g/dL (3.4-5.0); Bilirubin Total 0.4 mg/dL (0.2-1.0); Potassium 3.6 mmol/L (3.5-5.1); Protein, Total 5.7 g/dL (6.4-8.2)
[2018-02-05] MEDS ORDERED: POTASSIUM 25 MEQ EFFERV TAB PO ONE (06:18)
[2018-02-05] MEDS: PANTOPRAZOLE 40MG TABLET PO SCH (06:19)
[2018-02-05] MEDS: VANCOMYCIN ORAL SOLN 250 MG/5 ML OSYR PO SCH ×3 (06:19→17:59)
[2018-02-05] MEDS: HYDRALAZINE HCL 20 MG/ML VIAL IV PRN ×2 (06:57→12:18)
--- NOTE | 2018-02-05 08:29 | EKG ---
Test Date: 2018-02-05 Test Time: 07:03:49 Manager Strategy & Account: WENDI MEASUREMENT RESULTS: Intervals: Rate: 69 IN: 194 QRSD: 68 QT: 414 QTc: 443 Early: P: 48 IN: 194 QRS: 32 T: 63 INTERPRETIVE STATEMENTS: Normal sinus rhythm with sinus arrhythmia Low voltage QRS Abnormal ECG Compared to ECG 02/01/2018 16:55:02 Low QRS voltage now present Electronically Signed On 02-05-18 08:29:21 CDT by Luis Miguel Javed
[2018-02-05] MEDS: PROMETHAZINE 25 MG/ML VIAL IV PRN ×2 (08:38→15:35)
[2018-02-05] MEDS: HYDROCODONE/APAP 7.5/325 MG TAB PO SCH ×2 (08:38→21:13)
[2018-02-05] MEDS: PREGABALIN 50 MG CAP PO SCH ×2 (08:38→21:14)
[2018-02-05] MEDS: CALCITROL 0.25 MCG CAP PO SCH (08:38)
[2018-02-05] MEDS: CARVEDILOL 12.5 MG TAB PO SCH ×2 (08:38→21:14)
[2018-02-05] MEDS: LACTOBACILLUS/ACIDOPHILUS TAB PO SCH ×3 (08:39→21:13)
[2018-02-05] MEDS: LEVOTHYROXINE SOD 0.1 MG TAB PO SCH (08:39)
[2018-02-05] MEDS: TIZANIDINE 4 MG TABLET PO SCH ×2 (08:39→21:14)
[2018-02-05] MEDS ORDERED: LORazepam 2 MG/ML VIAL ONE (10:55)
[2018-02-05] MEDS: ONDANSETRON 4 MG/2 ML VIAL IV PRN (11:03)
[2018-02-05] MEDS ORDERED: DICYCLOMINE HCL 10 MG CAP PO ONE (12:12)
[2018-02-05] MEDS: ENOXAPARIN 40 MG/0.4 ML SQ SCH (17:58)
--- NOTE | 2018-02-05 19:22 | PN ---
Subjective: Her had a seizure in the patient's room, he was taken to monitor room. She has been complaining of terrible headaches. She is probably getting some medications that is causing tobi t. I am going to go ahead and switch her IV Rocephin to something p.o. since her E. coli was pretty much pansensitive to almost everything, and go ahead and remove the Multani catheter today at 1:15 p.m. Her stent is in place. Her white count is down to 6.8, GFR 55. Assessment: Possible sepsis from 2-mm stone at the right ureterovesical junction. She is status pos t double-J stent placement and doing well. Plan: Plan is to go ahead and change her IV Rocephin to something p.o. today. Thank you very much. TOBIAS Voice ID: [id number] Report ID: [id number]
--- NOTE | 2018-02-05 19:22 | PN ---
Date of Progress Note: 02/05/2018 Subjective: The patient is seen and examined. Chart reviewed and case discussed with RN. The patie nt is still having significant amount of diarrhea, has had 4 episodes since the last night. Does rep ort some abdominal discomfort. Multani catheter is still in place. Blood pressure has been running on the high side. Complaining of some intractable nausea and vomiting. Review of Systems: Negative, except as above. Medications: List reviewed. Physical Examination: Vital Signs: Temperature 97.9, heart rate 72, blood pressure 159/69, respirations 20, O2 96% on room air. General: Awake, alert, oriented x3. Some mild distress, ill-appearing elderly female, morbidly obes e, BMI 50. CV: S1 and S2. No murmurs. Regular rate and rhythm. Peripheral pulses present. Respiratory: Moving air well bilaterally. No wheezing. No stridor. Gastrointestinal: Abdomen is soft. Mild tenderness to palpation. No rebound or guarding. Bowel so unds positive. Extremities: No clubbing, cyanosis, or edema. Neurologic: Nonfocal. Laboratory Data: Sodium 147, potassium 3.6, chloride 114, CO2 of 25, BUN 11, creatinine 1, glucose 9 9, calcium 7.4, albumin 2.5. WBC 6.8, H and H of 12.7 and 38.7, platelets 117, neutrophils 67%. Uri ne culture growing E coli. Blood cultures, no growth to date. Assessment And Plan: A 67-year-old female with, 1.Sepsis secondary to pyelonephritis and Clostridium difficile colitis, improving. We will recheck procalcitonin. White count has normalized. Urine culture is growing Escherichia coli. 2.Septic shock, resolved, off Levophed. 3.Acute pyelonephritis secondary to Escherichia coli. Continue IV antibiotics. 4.Clostridium difficile colitis. We will continue oral vancomycin. The patient is still having sig nificant amount of diarrhea. We will add Lactinex. 5.Hypocalcemia. Replaced and monitor. Corrected calcium has normalized. 6.Hydronephrosis with renal and ureteral calculus obstruction, status post cystoscopy and double-J s tent. Dr. Helms is on the case. Multani catheter to be removed today. We will do a voiding trial. 7.Bradycardia and sinus pause, likely secondary to the patient's sleep apnea. The patient will need a sleep study as an outpatient. Once the patient was woken up, rate improved. EKG did not show any acute changes, but showed normal sinus rhythm with sinus arrhythmia. 8.Morbid obesity, BMI 50. 9.Hypothyroidism. Continue home medications. 10.Essential hypertension, uncontrolled with hypertensive urgency, p.r.n. medications added. 11.Rheumatoid arthritis. Steroids and DMARDs held due to sepsis. 12.Intractable nausea and vomiting. Continue with antiemetics. Seems to be cyclical. The patient unable to really tolerate her diet today. 13.Hypernatremia, improving. We will continue to monitor. 14.Gastrointestinal and deep venous thrombosis prophylaxis with proton pump inhibitor and Lovenox. Plan: 1.Discontinue Multani catheter today. Monitor sodium level. Continue antiemetics. Ambulate, likely discharge in the next 24 hours if continues to improve. 2.Moderate protein-calorie malnutrition. /MODL Voice ID: [id number] Report ID: [id number]
[2018-02-05] MEDS: SMZ./TMP. 800/160 MG TABLET PO SCH (21:15)
[2018-02-05 21:59] VITALS: O2SAT 97
[2018-02-06] MEDS: VANCOMYCIN ORAL SOLN 250 MG/5 ML OSYR PO SCH ×3 (00:04→12:39)
[2018-02-06] MEDS: PANTOPRAZOLE 40MG TABLET PO SCH (05:54)
[2018-02-06 08:02] LABS: Absolute Monocytes 0.8 K/uL (0.1-1.3); Absolute Neutrophil 3.6 K/uL (1.8-8.0); Basophils % 1.3 % (0-1.3); Eosinophils % 6.3 % (0-4.4); Hematocrit 41.4 % (36.0-45.0); Lymphocytes % 17.6 % (15.3-44.8); MCH 31.7 pg (27.0-35.0); MCV 96.5 fL (80-100); MPV 10.6 fL (7.6-11.3); Monocytes % 13.5 % (3.3-12.3); RBC Red Blood Cell Count 4.29 M/uL (3.86-4.86)
[2018-02-06] MEDS: TIZANIDINE 4 MG TABLET PO SCH (09:00)
[2018-02-06] MEDS: CALCITROL 0.25 MCG CAP PO SCH (09:14)
[2018-02-06] MEDS: LACTOBACILLUS/ACIDOPHILUS TAB PO SCH (09:14)
[2018-02-06] MEDS: CARVEDILOL 12.5 MG TAB PO SCH (09:14)
[2018-02-06] MEDS: PREGABALIN 50 MG CAP PO SCH (09:14)
[2018-02-06] MEDS: SMZ./TMP. 800/160 MG TABLET PO SCH (09:15)
[2018-02-06] MEDS: LEVOTHYROXINE SOD 0.1 MG TAB PO SCH (09:15)
[2018-02-06] MEDS: HYDROCODONE/APAP 7.5/325 MG TAB PO SCH (09:15)
[2018-02-06] MEDS: HYDRALAZINE HCL 20 MG/ML VIAL IV PRN (09:18)
[2018-02-06 11:09] LABS: Albumin 2.6 g/dL (3.4-5.0); Bilirubin Total 0.5 mg/dL (0.2-1.0); Potassium 3.5 mmol/L (3.5-5.1); Protein, Total 5.9 g/dL (6.4-8.2)
[2018-02-06] MEDS ORDERED: POTASSIUM 25 MEQ EFFERV TAB PO ONE (11:28)
--- NOTE | 2018-02-06 11:49 | PN ---
Subjective: The patient is feeling well. She is sitting up in the room. No complaints. Objective: Vital Signs: 97.1 temperature, 69 pulse, 20 respiration, BP 203/96, sats 95%. I's and O' s, she is voiding well, output 900 cc of urine in the shift. Assessment: Pyelonephritis, sepsis, Escherichia coli, sensitive to Bactrim. The patient also has Cl ostridium difficile, was treated with p.o. vancomycin for that. She needs to go home on p.o. antibio tics for more 14 days and Multani catheter. After that the Multani catheter in the office. ELIZABETH/JULES Voice ID: [id number] Report ID: [id number]
--- NOTE | 2018-02-06 14:28 | P.DS ---
Admission Date: 02/01/18 Discharge Date: 02/06/18 Disposition: ROUTINE DISCHARGE Discharge Condition: FAIR Reason for Admission: obsturctive urinary stone - Problems (1) Colitis, Clostridium difficile Status: Acute (2) Hydronephrosis with renal and ureteral calculous obstruction Onset Date: 02/02/18 Status: Acute (3) Urinary tract infectious disease Onset Date: 02/17/15 Status: Suspected Qualifiers: Urinary tract infection type: acute cystitis Hematuria presence: without hematuria Qualified Code(s): N30.00 - Acute cystitis without hematuria Brief History of Present Illness: Ms Chong is a 67 years old woman with history of HTN, Dyslipidemia, hypothyroidism, obesity, and RA, who start about 3:00 PM today, with severe right flank pain, radiated to right yasir. Intensity was 10/10, described as colicky, associated with nausea and vomiting. She has never had this problem in the past. She denied fever but has had chills this afternoon. In ED lab work was remarkable for 3.1K WBC, afebrile, BMP is still pending. CT stone protocol remarkable for mild to moderate dilatation of the right-sided collecting system secondary to a 2 mm UVJ calculus. Possible Pyelonephritis. Hospital Course: She was admitted for UTI, s/p stent placement. Ucx shows E Coli, sensitive to Bactrim. She is doing much better. She is discharged home with PO Vancomycin and Bactrim. Vital Signs/Physical Exam: Temp Pulse Resp BP Pulse Ox 97.1 F 69 20 203/96 H 95 02/06/18 08:00 02/06/18 08:00 02/06/18 08:00 02/06/18 09:14 02/06/18 08:00 General: Alert, In no apparent distress HEENT: Atraumatic, PERRLA, EOMI Neck: Supple, JVD not distended Respiratory: Clear to auscultation bilaterally, Normal air movement Cardiovascular: Regular rate/rhythm, Normal S1 S2 Gastrointestinal: Normal bowel sounds, No tenderness Musculoskeletal: No tenderness Integumentary: No rashes Neurological: Normal speech, Normal tone, Normal affect Lymphatics: No axilla or inguinal lymphadenopathy Laboratory Data at Discharge: WBC 5.9 K/uL (4.3-10.9) 02/06/18 07:43 Hgb 13.6 g/dL (12.0-15.0) 02/06/18 07:43 Hct 41.4 % (36.0-45.0) 02/06/18 07:43 Plt Count 131 K/uL (152-406) L 02/06/18 07:43 Sodium 146 mmol/L (136-145) H 02/06/18 07:43 Potassium 3.5 mmol/L (3.5-5.1) 02/06/18 07:43 BUN 10 mg/dL (7-18) 02/06/18 07:43 Creatinine 1.00 mg/dL (0.55-1.3) 02/06/18 07:43 Glucose 92 mg/dL (74-106) 02/06/18 07:43 Total Bilirubin 0.5 mg/dL (0.2-1.0) 02/06/18 07:43 AST 16 U/L (15-37) 02/06/18 07:43 ALT 21 U/L (12-78) 02/06/18 07:43 Alkaline Phosphatase 94 U/L (45-117) 02/06/18 07:43 Lipase 97 U/L (73-393) 02/01/18 20:00 Home Medications: Carvedilol [Coreg*] 12.5 mg PO BID 02/02/18 Hydrocodone 7.5/APAP 325 [[place] 7.5/325 mg*] 1.5 tab PO BID 02/02/18 Leflunomide 20 mg PO DAILY 02/02/18 Levothyroxine [Synthroid*] 100 mcg PO DAILY 02/02/18 Prednisolone [Millipred] 5 mg PO DAILY 02/02/18 Pregabalin [Lyrica*] 50 mg PO BID 02/02/18 Tizanidine HCl 2 mg PO BID 02/02/18 Calcitrol [Rocaltrol*] 0.25 mcg PO DAILY #30 cap 02/06/18 Pantoprazole [Protonix Tab*] 40 mg PO DAILYAC #30 tab 02/06/18 Smz./Tmp. [Bactrim Ds 800 MG/160 MG*] 1 tab PO BID #28 tab 02/06/18 Vancomycin Oral Soln [Vancocin HCl*] 2.5 ml PO Q6H #140 ml 02/06/18 New Medications: Calcitrol [Rocaltrol*] 0.25 mcg PO DAILY #30 cap Pantoprazole [Protonix Tab*] 40 mg PO DAILYAC #30 tab Smz./Tmp. [Bactrim Ds 800 MG/160 MG*] 1 tab PO BID #28 tab Vancomycin Oral Soln [Vancocin HCl*] 2.5 ml PO Q6H #140 ml Diet: Regular Activity: Ad kierra Followup: Jose Helms MD [ACTIVE - CAN ADMIT] - 1-2 Weeks Time spent managing pt's care (in minutes): 35
[2018-02-06 17:23] VITALS: BP 149/79; TEMP 97.4
== END 2018-02-06 14:13 | disposition home or self-care (01) | DRG 689 ==
LOC: ER 16:41 → ERHOLD 18:43 → 2ND 20:56 → 3RD-ICU 02-02 11:40 → 4TH 02-03 11:40
PROVIDERS: ADMIT Internal Medicine; ATTEND Internal Medicine Hematology & Oncology
PROC: BT1DZZZ Fluoroscopy of Right Kidney, Ureter and Bladder (ICD-10-PCS; 2018-02-02)
PROC: 02HV33Z Insertion of Infusion Device into Superior Vena Cava, Percutaneous Approach (ICD-10-PCS; 2018-02-02)
PROC: 3E043XZ Introduction of Vasopressor into Central Vein, Percutaneous Approach (ICD-10-PCS; 2018-02-02)
PROC: 0T768DZ Dilation of Right Ureter with Intraluminal Device, Via Natural or Artificial Opening Endoscopic (ICD-10-PCS; principal; 2018-02-02 15:30)
DX: N13.6 Pyonephrosis (principal); A41.9 Sepsis, unspecified organism; R65.21 Severe sepsis with septic shock; A04.72 Enterocolitis due to Clostridium difficile, not specified as recurrent; Z68.43 Body mass index [BMI] 50.0-59.9, adult; E87.0 Hyperosmolality and hypernatremia; I10 Essential (primary) hypertension; E78.5 Hyperlipidemia, unspecified; E03.9 Hypothyroidism, unspecified; M06.9 Rheumatoid arthritis, unspecified; B96.20 Unspecified Escherichia coli [E. coli] as the cause of diseases classified elsewhere; E83.51 Hypocalcemia; R00.1 Bradycardia, unspecified; E66.01 Morbid (severe) obesity due to excess calories; M79.7 Fibromyalgia
CPT/HCPCS: 36415; 51600; 71045; 74176; 74430; 76377; 80048; 80053; 80076; 81003; 81015; 82533; 82805; 82962; 83605; 83690; 84145; 84484; 85025; 87040; 87077; 87086; 87088; 87186; 87493; 93005; 93971; 96365; 96375; 99285; J0360; J0696; J1580; J1650; J2175; J2405; J2550; J2800; J3010; J7030; J7060; Q9967

== ENCOUNTER 2018-02-22 19:54 | Emergency (ER) | payer OTHER, BC ==
--- OUTSIDE RECORDS SUMMARY | 2018-02-22 19:56 | XMS REPORT | Clinical Summary ---
:1950 Author Organization [facility] Address [address] [place] [address] Care Team Providers Name Role Phone Moe [...] INFLUENZA VACCINE 01/24/2018 Implants Implanted Type [employer] Director Device Expiration Model / Identifier Date Serial / Lot Cement Bone Gm Hiviscocty 40gr Smartmix - [id number] Human N/A: DEPUY 2017 [id number] / Implanted: Qty: 1 on 12/09/2015 by Sancho Jason MD Tissue N/A ORTHO- KNEES / Implants [id number] Cement Bone Gm Hiviscocty 40gr Smartmix - [id number] Human Right: DEPUY [id number] / Implanted: Qty: 1 on 12/09/2015 by Sancho Jason MD Tissue Knee ORTHO- KNEES / Implants [id number] Ho Ho Kus Fem Slv Ful Por 34mm - [id number] IPM IMPLANT Right: DEPUY 2024 [id number] / Implanted: Qty: 1 on 12/09/2015 by Sancho Jason MD DEVICES Knee [employer] [id number] Lps Univ Tib Hin Ins Sm 26mm - [id number] IPM IMPLANT Right: DEPUY 2016 [id number] / Implanted: Qty: 1 on 12/09/2015 by Sancho Jason MD DEVICES Knee [employer] [id number] S-Rom Noiles Rotating Hinge Noiles Rotating Hinge (Nrh) Knee Size 10 Mm Distal Augmentation Blocks, Extra Small/Small/Medium - [id number] IPM IMPLANT Right: DEPUY 07/26/2024 [id number] / Implanted: Qty: 1 on 12/09/2015 by Sancho Jason MD DEVICES Knee [employer] [id number] S-Rom Noiles Rotating Hinge Noiles Rotating Hinge (Nrh) Knee Size 10 Mm Distal Augmentation Blocks, Extra Small/Small/Medium - [id number] IPM IMPLANT Right: DEPUY 07/26/2024 [id number] / Implanted: Qty: 1 on 12/09/2015 by Sancho Jason MD DEV[employer] Knee [employer] [id number] Tray Rev Mbt 3x4.8mm - [id number] Knee Joint Right: DEPUY ORTHO 09/23/2025 [id number] / Implanted: Qty: 1 on 12/09/2015 by Sancho Jason MD Implants Knee / [id number] Sleeve Tib 45mm - [id number] Knee Joint Right: DEPUY 04/25/2025 [id number] / Implanted: Qty: 1 on 12/09/2015 by Sancho Jason MD Implants Knee ORTHO- KNEES / [id number] Stem Knee Flt Univl [id number] - [id number] Knee Joint Right: DEPUY 02/23/2025 [id number] / Implanted: Qty: 1 on 12/09/2015 by Sancho Jason MD Implants Knee ORTHO- KNEES / [id number] Stem Knee Flt Univl [id number] - [id number] Knee Joint Right: DEPUY 09/23/2025 [id number] / Implanted: Qty: 1 on 12/09/2015 by Sancho Jason MD Implants Knee ORTHO- KNEES / [id number] Component Fml Ant-Pstr Med-Lat Rt Rotng Hinge Sm [id number] - [id number] Knee Joint Right: DEPUY 03/25/2019 [id number] / Implanted: Qty: 1 on 12/09/2015 by Sancho Jason MD Implants Knee ORTHO- KNEES / [id number] Results Not on fileafter 02/21/2017 Insurance Payer Benefit Plan / Group Subscriber ID Type Phone Address MEDICARE MEDICARE PART A AND B xxxxxxxxxx Medicare [place], [place] BCBS BCBS OUT OF STATE xxxxxxxxxxxx PPO [phone] [place], [place] [id number]
[2018-02-22] MEDS ORDERED: KETOROLAC 30 MG/ML INJ ONE (21:23)
[2018-02-22] MEDS ORDERED: ONDANSETRON 4 MG/2 ML VIAL ONE (21:23)
--- NOTE | 2018-02-22 21:42 | RAD REPORT ---
EXAM DESCRIPTION: CT - Abdomen Pelvis Wo Contrast - 02/22/2018 9:29 pm CLINICAL HISTORY: Abdominal pain. L flank pain COMPARISON: Stone Protocol dated 02/01/2018Stone Protocol dated 02/01/2018 TECHNIQUE: CT imaging of the abdomen and pelvis was performed without contrast. Solid organ, bowel a nd vascular assessment is limited due to lack of IV and oral contrast. All CT scans are performed using dose optimization technique as appropriate and may include automated exposure control or mA/KV adjustment according to patient size. FINDINGS: The lower lung jones are clear.Postsurgical changes are present about the stomach. Cholec ystectomy clips are noted. The liver demonstrates no focal mass or intrahepatic biliary dilatation. The spleen, pancreas, adrena l glands are normal. Small exophytic cyst is present emanating from the superior pole right kidney me asuring 12 mm.Tiny caliceal stones are present in the superior left kidney. Mild left hydronephrosis and hydroureter is present caused by 1-2 mm calculus at the left UVJ along the bladder mucosa. No bowel obstruction, free air, free fluid or abscess. Sigmoid diverticulosis coli is present without diverticulitis. The appendix is not identified as a discrete structure, however, no secondary findin gs of appendicitis are identified. Hardware is present spanning L3-4. IMPRESSION: Mild left hydronephrosis and hydroureter is present caused by a 1-2 mm calculus at the l eft UVJ along the bladder mucosa. Additional punctate left nephrolithiasis. A limited non-contrast examination was performed as detailed.
[2018-02-22 22:03] LABS: Absolute Monocytes 0.9 K/uL (0.1-1.3); Absolute Neutrophil 6.3 K/uL (1.8-8.0); Eosinophils % 3.6 % (0-4.4); Hematocrit 44.5 % (36.0-45.0); Lymphocytes % 11.6 % (15.3-44.8); MCH 32.1 pg (27.0-35.0); MCV 95.8 fL (80-100); MPV 10.3 fL (7.6-11.3); Monocytes % 10.9 % (3.3-12.3); RBC Red Blood Cell Count 4.65 M/uL (3.86-4.86)
[2018-02-22 22:10] LABS: Urine Bacteria <20 /HPF (<20); Urine RBC 20-50 /HPF (NONE SEEN)
[2018-02-22 22:11] LABS: Urine Blood 3+ (NEG); Urine Glucose NEGATIVE (NEG); Urine Protein NEGATIVE (NEG)
[2018-02-22 22:11] LABS: Urine Amorphous Sediment 1+ /HPF (NONE SEEN); Urine Culture Reflex Order NOT NEEDED
[2018-02-22 22:17] LABS: Albumin 3.8 g/dL (3.4-5.0); Bilirubin Direct 0.1 mg/dL (0-0.2); Bilirubin Total 0.4 mg/dL (0.2-1.0); Potassium 4.5 mmol/L (3.5-5.1); Protein, Total 7.5 g/dL (6.4-8.2)
--- NOTE | 2018-02-22 23:22 | ER ---
Nurse's Notes [facility] Name: Vera Chong Age: 67 yrs Sex: Female : 1950 Arrival Date: 02/22/2018 Time: 20:05 Bed 8 Private MD: Moe Roach S Diagnosis: Acute Renal colic due to left UVJ stone;Renal Insufficiency Presentation: 02/22 20:11 Presenting complaint: Patient states: Reports left flank pain, burning with urination aj1 that started this afternoon. She was discharged from this hospital with hydronephrosis on February 06, and states the pain today feels the same as when she was admitted last time. Reports nausea, diarrhea. States she was diagnosed with C-Diff when she was here last and started on Vancomycin, which she has been taking for 2 weeks now. She was also taking Bactrim, which she has now finished. Transition of care: patient was not received from another setting of care. Onset of symptoms was February 22, 2018. Risk Assessment: Do you want to hurt yourself or someone else? Patient reports no desire to harm self or others. Initial Sepsis Screen: Does the patient meet any 2 criteria? No. Patient's initial sepsis screen is negative. Does the patient have a suspected source of infection? Yes: Other: C-Diff. Care prior to arrival: None. 20:11 Method Of Arrival: Wheelchair aj1 20:11 Acuity: HOLLIE 3 aj1 Triage Assessment: 20:19 General: Appears in no apparent distress. uncomfortable, Behavior is calm, cooperative, aj1 appropriate for age. Pain: Complains of pain in left low back Pain radiates to left lower quadrant Pain currently is 9 out of 10 on a pain scale. Quality of pain is described as burning, throbbing. Neuro: Level of Consciousness is awake, alert, obeys commands. Cardiovascular: Patient's skin is warm and dry. Respiratory: Airway is patent Respiratory effort is even, unlabored, Respiratory pattern is regular, symmetrical. GI: Reports diarrhea. Historical: - Allergies: 20:19 No Known Allergies; aj1 - Home Meds: 20:19 alprazolam 0.25 mg Oral tab 1 tab 3 times per day [Active]; carvedilol 12.5 mg Oral tab aj1 1 tab 2 times per day [Active]; hydrocodone-acetaminophen 10-325 mg Oral tab 1 tab every 4 hours [Active]; leflunomide 20 mg Oral tab 1 tab once daily [Active]; levothyroxine 100 mcg tab 1 tab once daily [Active]; lisinopril 10 mg Oral tab 1 tab once daily [Active]; Lyrica Oral [Active]; metoclopramide HCl 5 mg Oral tab 1 tab once daily [Active]; Prednisolone Oral [Active]; prednisone 1 mg Oral tab once daily [Active]; tizanidine 2 mg Oral cap every 6 hours [Active]; calcitrol 0.25 mcg daily [Active]; pantoprazole 40 mg oral TbEC 1 tab once daily [Active]; vancomycin oral 2.5 mL oral [Active]; - PMHx: 20:19 Fibromyalgia; Hyperlipidemia; Hypertension; Hypothyroidism; Rheumatoid Arthritis; aj1 sepsis; Kidney stones; - Immunization history:: Flu vaccine status is unknown. - Social history:: Smoking status: Patient/guardian denies using tobacco. - Ebola Screening: : Patient denies travel to an Ebola-affected area in the 21 days before illness onset. - Family history:: not pertinent. - Hospitalizations: : No recent hospitalization is reported. Screenin:45 Abuse screen: Denies threats or abuse. jb4 20:45 Nutritional screening: No deficits noted. Tuberculosis screening: No symptoms or risk jb4 factors identified. Fall Risk None identified. Assessment: 21:30 General: Appears in no apparent distress. uncomfortable, Behavior is calm, cooperative, jb4 appropriate for age. Pain: Complains of pain in left low back Pain radiates to suprapubic area and anterior aspect of left lateral abdomen Pain currently is 8 out of 10 on a pain scale. at worst was 10 out of 10 on a pain scale. Neuro: Level of Consciousness is awake, alert, obeys commands, Oriented to person, place, time, situation. Cardiovascular: Denies chest pain, Heart tones S1 S2 present Patient's skin is warm and dry. Respiratory: Airway is patent Respiratory effort is even, unlabored, Respiratory pattern is regular, symmetrical. GI: Abdomen is obese, Bowel sounds present X 4 quads. Abd is soft and non tender in right upper quadrant, left upper quadrant and left lower quadrant Abdomen is tender to palpation in right lower quadrant Reports diarrhea, nausea, vomiting. : No signs and/or symptoms were reported regarding the genitourinary system. EENT: No signs and/or symptoms were reported regarding the EENT system. Derm: Skin is intact, Skin is pink, warm \T\ dry. Musculoskeletal: No signs and/or symptoms reported regarding the musculoskeletal system. 22:37 Reassessment: Patient appears in no apparent distress at this time. Patient and/or jb4 family updated on plan of care and expected duration. Pain level reassessed. Patient is alert, oriented x 3, equal unlabored respirations, skin warm/dry/pink. Pt reports a decrease in pain and nausea. Patient states feeling better. Vital Signs: 20:19 BP 150 / 78; Pulse 78; Resp 18; Temp 97.6; Pulse Ox 95% on R/A; Weight 113.4 kg (R); aj1 Height 5 ft. 0 in. (152.40 cm) (R); Pain 9/10; 21:00 BP 190 / 82; Pulse 78; Resp 18; Pulse Ox 96% ; Pain 8/10; jb4 21:56 BP 162 / 80; Pulse 78; Resp 18; Pulse Ox 95% on R/A; aa1 22:37 BP 157 / 71; Pulse 80; Resp 18; Pulse Ox 94% on R/A; Pain 6/10; jb4 20:19 Body Mass Index 48.82 (113.40 kg, 152.40 cm) aj1 ED Course: 20:05 Patient arrived in ED. es 20:05 Moe Roach MD is Private Physician. es 20:17 Triage completed. aj1 20:19 Arm band placed on Patient placed in waiting room, Patient notified of wait time. aj1 20:45 Patient has correct armband on for positive identification. Placed in gown. Bed in low jb4 position. Call light in reach. Side rails up X 1. Pulse ox on. NIBP on. 20:57 Jace Negrete RN is Primary Nurse. jb4 21:00 Gamal Pena MD is Attending Physician. wa 21:[address] via wheelchair. nj 21:28 CT Abd/Pelvis - Without Cont In Process Unspecified. EDMS 21:29 CT completed. Patient tolerated procedure well. Patient moved back from CT. nj 21:35 Initial lab(s) drawn, by me, sent to lab. Missed attempt(s): 22 gauge in left upper aa1 arm. Bleeding controlled, band aid applied, catheter tip intact. 21:40 Inserted saline lock: 22 gauge in right antecubital area, using aseptic technique. aa1 23:21 Jose Helms MD is Referral Physician. wa 23:29 No provider procedures requiring assistance completed. IV discontinued, intact, jb4 bleeding controlled. Administered Medications: 21:48 Drug: Zofran 4 mg Route: IVP; Site: right antecubital; aa1 22:36 Follow up: Response: No adverse reaction; Nausea is decreased jb4 21:50 Drug: TORadol 30 mg Route: IVP; Site: right antecubital; aa1 22:36 Follow up: Response: Pain is decreased jb4 Outcome: 23:22 Discharge ordered by . wa 23:29 Discharged to home ambulatory. jb4 23:29 Condition: stable 23:29 Discharge instructions given to patient, family, Instructed on discharge instructions, follow up and referral plans. medication usage, Demonstrated understanding of instructions, follow-up care, medications, Prescriptions given X 1. 23:30 Patient left the ED. jb4 Signatures: Dispatcher [employer] EDLeatha Mcdaniel RN RN aj1 Shyla Patino RN RN aa1 Shelby Nunez James RN RN jb4 Shiv Benjamin William, MD MD mt
--- NOTE | 2018-02-22 23:22 | EDPHYS ---
Physician Documentation [facility] Name: Vera Chong Age: 67 yrs Sex: Female : 1950 Arrival Date: 02/22/2018 Time: 20:05 Bed 8 Private MD: Moe Roach S ED Physician Gamal Pena HPI: 02/22 23:13 This 67 yrs old Female presents to ER via Wheelchair with complaints of wa KIDNEY INFECTION. 23:13 The patient complains of pain in the left flank. The pain does not radiate. Onset: The wa symptoms/episode began/occurred today. Modifying factors: The symptoms are alleviated by nothing. the symptoms are aggravated by nothing. Associated signs and symptoms: Pertinent positives: dysuria, Pertinent negatives: urinary frequency, hematuria, nausea, vomiting. Severity of pain: At its worst the pain was moderate in the emergency department the pain is actually worse. The patient has experienced similar episodes in the past, a few times. The patient has not recently seen a physician. Pt on PO vanc for c-diff. Also recently had stents placed for kidney stones. Historical: - Allergies: 20:19 No Known Allergies; aj1 - Home Meds: 20:19 alprazolam 0.25 mg Oral tab 1 tab 3 times per day [Active]; carvedilol 12.5 mg Oral tab aj1 1 tab 2 times per day [Active]; hydrocodone-acetaminophen 10-325 mg Oral tab 1 tab every 4 hours [Active]; leflunomide 20 mg Oral tab 1 tab once daily [Active]; levothyroxine 100 mcg tab 1 tab once daily [Active]; lisinopril 10 mg Oral tab 1 tab once daily [Active]; Lyrica Oral [Active]; metoclopramide HCl 5 mg Oral tab 1 tab once daily [Active]; Prednisolone Oral [Active]; prednisone 1 mg Oral tab once daily [Active]; tizanidine 2 mg Oral cap every 6 hours [Active]; calcitrol 0.25 mcg daily [Active]; pantoprazole 40 mg oral TbEC 1 tab once daily [Active]; vancomycin oral 2.5 mL oral [Active]; - PMHx: 20:19 Fibromyalgia; Hyperlipidemia; Hypertension; Hypothyroidism; Rheumatoid Arthritis; aj1 sepsis; Kidney stones; - Immunization history:: Flu vaccine status is unknown. - Social history:: Smoking status: Patient/guardian denies using tobacco. - Ebola Screening: : Patient denies travel to an Ebola-affected area in the 21 days before illness onset. - Family history:: not pertinent. - Hospitalizations: : No recent hospitalization is reported. ROS: 23:14 Constitutional: Negative for fever, chills, and weight loss, Eyes: Negative for injury, wa pain, redness, and discharge, ENT: Negative for injury, pain, and discharge, Neck: Negative for injury, pain, and swelling, Cardiovascular: Negative for chest pain, palpitations, and edema, Respiratory: Negative for shortness of breath, cough, wheezing, and pleuritic chest pain, Back: Negative for injury and pain, MS/Extremity: Negative for injury and deformity, Skin: Negative for injury, rash, and discoloration, Neuro: Negative for headache, weakness, numbness, tingling, and seizure, Psych: Negative for depression, anxiety, suicide ideation, homicidal ideation, and hallucinations. 23:14 Abdomen/GI: Positive for flank pain L. 23:14 : Positive for urinary symptoms. 23:14 All other systems are negative. Exam: 23:15 Constitutional: This is a well developed, well nourished patient who is awake, alert, wa and in no acute distress. Head/Face: Normocephalic, atraumatic. Eyes: Pupils equal round and reactive to light, extra-ocular motions intact. Lids and lashes normal. Conjunctiva and sclera are non-icteric and not injected. Cornea within normal limits. Periorbital areas with no swelling, redness, or edema. ENT: Nares patent. No nasal discharge, no septal abnormalities noted. Tympanic membranes are normal and external auditory canals are clear. Oropharynx with no redness, swelling, or masses, exudates, or evidence of obstruction, uvula midline. Mucous membranes moist. Neck: Trachea midline, no thyromegaly or masses palpated, and no cervical lymphadenopathy. Supple, full range of motion without nuchal rigidity, or vertebral point tenderness. No Meningismus. Chest/axilla: Normal chest wall appearance and motion. Nontender with no deformity. No lesions are appreciated. Cardiovascular: Regular rate and rhythm with a normal S1 and S2. No gallops, murmurs, or rubs. Normal PMI, no JVD. No pulse deficits. Respiratory: Lungs have equal breath sounds bilaterally, clear to auscultation and percussion. No rales, rhonchi or wheezes noted. No increased work of breathing, no retractions or nasal flaring. Back: No spinal tenderness. No costovertebral tenderness. Full range of motion. Skin: Warm, dry with normal turgor. Normal color with no rashes, no lesions, and no evidence of cellulitis. MS/ Extremity: Pulses equal, no cyanosis. Neurovascular intact. Full, normal range of motion. Neuro: Awake and alert, GCS 15, oriented to person, place, time, and situation. Cranial nerves II-XII grossly intact. Motor strength 5/5 in all extremities. Sensory grossly intact. Cerebellar exam normal. Normal gait. Psych: Awake, alert, with orientation to person, place and time. Behavior, mood, and affect are within normal limits. 23:15 Abdomen/GI: Inspection: abdomen appears normal, Bowel sounds: normal, in all quadrants, Palpation: abdomen is soft and non-tender, in all quadrants. Vital Signs: 20:19 BP 150 / 78; Pulse 78; Resp 18; Temp 97.6; Pulse Ox 95% on R/A; Weight 113.4 kg (R); aj1 Height 5 ft. 0 in. (152.40 cm) (R); Pain 9/10; 21:00 BP 190 / 82; Pulse 78; Resp 18; Pulse Ox 96% ; Pain 8/10; jb4 21:56 BP 162 / 80; Pulse 78; Resp 18; Pulse Ox 95% on R/A; aa1 22:37 BP 157 / 71; Pulse 80; Resp 18; Pulse Ox 94% on R/A; Pain 6/10; jb4 20:19 Body Mass Index 48.82 (113.40 kg, 152.40 cm) aj1 MDM: 21:00 Patient medically screened. hi 23:15 Differential diagnosis: nephrolithiasis, pyelonephritis, UTI. Data reviewed: vital wa signs, nurses notes, lab test result(s), radiologic studies. Test interpretation: by ED physician or midlevel provider: labs noted for renal insufficiency. UA noted positive for RBCs. 23:20 Test interpretation: by ED physician or midlevel provider: CT abd/pelvis: 1-2 mm L UVJ wa stone with hydronephrosis. . Response to treatment: the patient's symptoms have markedly improved after treatment. 02/22 21:10 Order name: Basic Metabolic Panel; Complete Time: 23:02/22 21:10 Order name: CBC with Diff; Complete Time: :02/22 21:10 Order name: Creatinine for Radiology; Complete Time: 23:02/22 21:10 Order name: Hepatic Function; Complete Time: :02/22 21:10 Order name: Lipase; Complete Time: :02/22 21:10 Order name: Urine Microscopic Only; Complete Time: 23:02/22 21:10 Order name: IV Saline Lock; Complete Time: :02/22 21:10 Order name: Labs collected and sent; Complete Time: 02/22 21:10 Order name: Urine Dipstick-Ancillary (obtain specimen); Complete Time: 21:56 02/22 21:10 Order name: CT Abd/Pelvis - Without Cont; Complete Time: :02/22 21:32 Order name: Urine Dipstick--Ancillary (enter results); Complete Time: 23: mw2 Administered Medications: 21:48 Drug: Zofran 4 mg Route: IVP; Site: right antecubital; aa1 22:36 Follow up: Response: No adverse reaction; Nausea is decreased jb4 21:50 Drug: TORadol 30 mg Route: IVP; Site: right antecubital; aa1 22:36 Follow up: Response: Pain is decreased jb4 Disposition: 02/22/18 23:22 Discharged to Home. Impression: Acute Renal colic due to left UVJ stone, Renal Insufficiency. - Condition is Stable. - Discharge Instructions: Kidney Stones, Dlry-ry-Cous. - Prescriptions for Zofran 4 mg Oral Tablet - take 1 tablet by ORAL route every 12 hours As needed; 20 tablet. - Medication Reconciliation Form, Thank You Letter, Antibiotic Education, Prescription Opioid Use form. - Follow up: Jose Helms MD; When: 1 - 2 days; Reason: Recheck today's complaints. - Problem is new. - Symptoms have improved. - Notes: follow up with Dr. Helms for further evaluation Signatures: Dispatcher [facility] Health CenterLeatha Mcdaniel RN RN aj1 Shyla Patino RN RN aa1 Jace Negrete, FÁTIMA RN jb4 Gamal Pena MD MD wa Corrections: (The following items were deleted from the chart) 23:30 23:22 02/22/2018 23:22 Discharged to Home. Impression: Acute Renal colic due to left jb4 UVJ stone; Renal Insufficiency. Condition is Stable. Forms are Medication Reconciliation Form, Thank You Letter, Antibiotic Education, Prescription Opioid Use. Follow up: Jose Helms; When: 1 - 2 days; Reason: Recheck today's complaints. Problem is new. Symptoms have improved. wa
== END 2018-02-22 23:30 | disposition home or self-care (01) ==
LOC: ER 19:54
DX: N20.0 Calculus of kidney (principal); N28.9 Disorder of kidney and ureter, unspecified; I10 Essential (primary) hypertension; E78.5 Hyperlipidemia, unspecified; E03.9 Hypothyroidism, unspecified; Z87.442 Personal history of urinary calculi
CPT/HCPCS: 36415; 74176; 80048; 80076; 83690; 85025; 96374; 96375; 99284; J2405; 81003; 81015

== ENCOUNTER 2020-03-17 12:43 | Emergency (ER) | payer OTHER, BC ==
--- OUTSIDE RECORDS SUMMARY | 2020-03-17 12:46 | XMS REPORT | Clinical Summary ---
:1950 Author Organization [facility] Address [address] [place] [address] Care Team Providers Name Role Phone Luis Miguel Roach MD Primary Care Provider Allergies Active Allergy Reactions Severity Noted Date Comments Morphine Other (See Comments) 12/02/2015 VOMITIN G Other 12/02/2015 EGGS-N/V Medications Medication Sig Dispensed Refills Start Date End Date Status levothyroxine Take 100 mcg by 0 Active (LEVOTHROID) 100 MCG mouth every tablet morning. HYDROcodone-acetaminoph Take 1 tablet by 0 Active en (NORCO 10-325) mouth every 6 10-325 mg per tablet (six) hours as needed for moderate pain. carvedilol (COREG) 12.5 Take 12.5 mg by 0 Active MG tablet mouth 2 (two) times a day with meals. metoclopramide (REGLAN) Take 5 mg by 0 Active 5 MG tablet mouth 4 (four) times a day. 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 Social History Tobacco Use Types Packs/Day Years Used Date Never Smoker Alcohol Use Drinks/Week oz/Week Comments No Sex Assigned at Date Recorded Not on file Last Filed Vital Signs Not on file Plan of Treatment Health Maintenance Due Date Last Done Comments BREAST CANCER SCREENING 11/09/1999 COLONOSCOPY SCREENING 11/09/1999 SHINGLES VACCINES (#1) 11/09/1999 65+ PNEUMOCOCCAL VACCINE (1 of 1 - PPSV23) 2014 INFLUENZA VACCINE 02/25/2020 Implants Implanted Type Area Rn Stars Device Shelf Model / Identifier Expiration Serial / Lot Date Cement Bone Gm Hiviscocty 40gr Smartmix - [id number] Human N/A: DEPUY 08/23/2017 [id number] / Implanted: Qty: 1 on 12/09/2015 by Sancho Jason MD at [facility] Tissue N/A ORTHO-KNEES / Implants [id number] Description:NOT A HUMAN TISSUE IMPLANT. Unable to chart as non-human tissue in [facility]. Cement Bone Gm Hiviscocty 40gr Smartmix - [id number] Human Tissue Right: Knee DEPUY ORTHO-KNEES 08/23/2017 [id number] / Implanted: Qty: 1 on 12/09/2015 by Sancho Jason M D at [facility] Implants / [id number] Description:NOT A HUMAN TISSUE IMPLANT. Unable to chart as non-human tissue in [facility]. Plush Fem Slv Ful Por 34mm - [id number] IPM IMPLANT Right: Knee DEPU Y 05/25/2025 [id number] / Implanted: Qty: 1 on 12/09/2015 by Sancho Jason MD at [facility] [employer] / [id number] Lps Univ Tib Hin Ins Sm 26mm - [id number] IPM IMPLANT Right: Knee DEPUY 02/23/2017 [id number] / Implanted: Qty: 1 on 12/09/2015 by Sancho Jason MD at [facility] [employer] / [id number] S-Rom Noiles Rotating Hinge Noiles Rotat ing Hinge ([facility]) Knee Size 10 Mm Distal Augmentation Blocks, Extra Small/Small/Medium - [id number] IPM IMPLANT Rig t: Knee DEPUY 07/26/2024 [id number] / Implanted: Qty: 1 on 12/09/2015 by Sancho Jason MD at [facility] [employer] / [id number] S-Rom Noiles Rotating Hinge Noiles Rotat ing Hinge (Nr) Knee Size 10 Mm Distal Augmentation Blocks, Extra Small/Small/Medium - [id number] IPM IMPLANT Rig t: Knee DEPUY 07/26/2024 [id number] / Implanted: Qty: 1 on 12/09/2015 by Sancho Jason MD at [facility] [employer] / [id number] Tray Rev Mbt 3x4.8mm - [id number] Knee Joint Right: Knee DEPUY ORTHO 09/23/2025 [id number] / Implanted: Qty: 1 on 12/09/2015 by Sancho Jason M D at [facility] Implants / [id number] Sleeve Tib 45mm - [id number] Knee Joint Right: Knee DEPUY ORTHO-KNEES 04/25/2025 [id number] / Implanted: Qty: 1 on 12/09/2015 by Sancho Jason M D at [facility] Implants / [id number] Stem Knee Flt Univl [id number] - [id number] Knee Joint Right: Knee DEPUY OR THO-KNEES 02/23/2025 [id number] / Implanted: Qty: 1 on 12/09/2015 by Sancho Jason M D at [facility] Implants / [id number] Stem Knee Flt Univl [id number] - [id number] Knee Joint Right: Knee DEPUY OR THO-KNEES 09/23/2025 [id number] / Implanted: Qty: 1 on 12/09/2015 by Sancho Jason M D at [facility] Implants / [id number] Component Fml Ant-Pstr Med-Lat Rt Rotng Hinge Sm [id number] - [id number] Knee Joint Right: Knee DEPUY ORTHO-KNEES 03/25/2019 [id number] / Implanted: Qty: 1 on 12/09/2015 by Sancho Jason M D at [facility] Implants / [id number] Results Not on fileafter 03/17/2019 Insurance Payer Benefit Plan / Subscriber ID Effective Dates Phone Addre ss Type Group MEDICARE MEDICARE PART A [id number] 2014-Present [place] Medicare [place] B BCBS BCBS OUT OF STATE [id number] 2014-Present PPO Advance Directives For more information, please contact: [phone] Type Date Recorded Patient Insight Leader Explanati on Advance Directives, Living Will and Medical Power of [employer] Machine Tender
--- OUTSIDE RECORDS SUMMARY | 2020-03-17 12:46 | XMS REPORT | Continuity of Care Document ---
:1950 Author Organization [facility] Address [address] [place] [address] Care Team Providers Name Role Phone Luis Miguel Roach MD Primary Care Physician Doc PANIAGUA Attending Clinician Doctor Unassigned, Name Attending Clinician Unavailable Problems Condition Condition Condition Status Onset Resolution Last Treating Co mments Source Name Details Category Date Date Treatment Clinician Date Infection Infection Disease Active [facility] ston of of 6-15 [facility] prosthetic prosthetic 00:00: st right knee right knee 00 joint joint Osteoarthr Problem Active 2019-09-05 M emoria itis 02:45:36 l [place] Osteoarthr itis Active Problem 09/05/2019 [facility] Vitamin D Problem Active 2019-09-05 Me moria deficiency 02:45:36 l , Vitamin Jorge unspecifie D d deficiency , unspecifie d Active Problem 09/05/2019 [facility] Osteopenia Problem Active 2019-09-05 M emoria 02:45:36 l [place] Osteopenia Active Problem 09/05/2019 [facility] Fibromyalg Problem Active 2019-09-05 M emoria ia 02:45:36 l [place] Fibromyalg ia Active Problem 0 [facility] Encounter Problem Active 2019-09-05 Me moria for 02:45:36 l immunizati Zane n on Encounter for immunizati on Active Problem 0 [facility] Other Problem Active 2019-09-05 Memor ia chronic 02:45:36 l pain Other Jorge chronic pain Active Problem 09/05/2019 [facility] Age Problem Active 2019-09-05 Memor ia related 02:45:36 l osteoporos Age Zane n is related osteoporos is Active Problem 0 [facility] 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 N.K.D.A. Active Info Not Alejo dahiana Available 12 l 00:00: Jorge 00 Morphine Propensi Active Other (See [facility] ty to Comments) 08 Methodi adverse 00:00: st reaction 00 s to drug Other Propensi Active EGGS-N/V [place] ty to 12-01 Methodi adverse 00:00: st reaction 00 s Social History Social Habit Start Date Stop Date Quantity Comments Source Sex Assigned At [facility] ethodist Alcohol intake 2016-01-07 2016-01-07 [facility] non-drinker of alcohol (finding) Smoking Status Start Date Stop Date Source Never smoker [facility] Medications Ordered Filled Start Stop Current Ordering Indication Dosage Frequency Signature Comments Components Source Medication Medication Date Date Medication? Clinician (SIG) Name Name Carvedilol Yes Yasmeen 1 tablet Memoria 3-12 Vo l 02:45: Tizanidine Yes Yasmeen 1 tablet Memoria HCl 3-12 Vo as needed l 02:45: PredniSONE Yes Yasmeen 1 tablet Memoria 3-12 Vo l 02:45: [place] 32 Levothyroxi Yes Yasmeen not Memoria ne Sodium 3-12 Vo defined l 02:45: Hydrocodone Yes Yasmeen 1 tablet Memoria -Acetaminop 3-12 Vo as needed l hen 02:45: Lyrica 2019- Yes Yasmeen 1 capsule Memoria 3-12 Vo l 02:45: PredniSONE Yes Nilanjana 1 tablet Memoria 1-22 Daina l 00:00: Prolia 2018-0 Yes Nilanjana 60 mg Memor ia 9-26 Daina l 00:00: Folic Acid 2018-0 Yes Nilanjana 1 tablet Memoria 8-29 Daina l 00:00: Methotrexat 2018-0 Yes Nilanjana 4 tabs Memoria e 8-29 Daina weekly x 2 l 00:00: weeks then stay on 6 tablets every week Levothyroxi Yes Nilanjana not M emoria ne Sodium 8-10 Daina defined l 02:46: Ergocalcife Yes Nilanjana 1 capsule Memoria rol 8-09 Daina l 00:00: PredniSONE 2018-0 Yes Yasmeen 1 tablet Memoria 7-12 Vo l 00:00: levothyroxi Yes 100ug QD Take 100 [place] ne 6-18 mcg by Methodi (LEVOTHROID 16:27: mouth st ) 100 MCG 19 every tablet morning. HYDROcodone Yes 1{tbl} Q6H Take 1 [place] -acetaminop 6-18 tablet by Met gallo hen (NORCO 16:27: mouth st 10-325) 19 every 6 10-325 mg (six) per tablet hours as needed for moderate pain. carvedilol 2015-0 Yes 12.5mg Q.5D Take 12.5 R[place] (COREG) 6-18 mg by Methodi 12.5 MG 16:27: mouth 2 st tablet 19 (two) times a day with meals. metoclopram 2015-0 Yes 5mg Q.25D Take 5 mg Ruff[place] noni 6-18 by mouth 4 Methodi (REGLAN) 5 16:27: (four) st MG tablet 19 times a day. Vital Signs Vital Name Observation Time Observation Value Comments Source Weight 2019-07-17 19:00:00 [facility] Height 2019-07-17 19:00:00 [facility] [place] Heart Rate 2019-07-17 19:00:00 [facility] Diastolic (mm Hg) 2019-07-17 19:00:00 Mem orial Jorge Systolic (mm Hg) 2019-07-17 19:00:00 Alejo rial [place] Weight 2019-01-31 19:00:00 [facility] Height 2019-01-31 19:00:00 [facility] Heart Rate 2019-01-31 19:00:00 [facility] [place] Diastolic (mm Hg) 2019-01-31 19:00:00 Mem orial [place] Systolic (mm Hg) 2019-01-31 19:00:00 Alejo rial [place] Weight 2019-01-04 18:30:00 [facility] Height 2019-01-04 18:30:00 [facility] Heart Rate 2019-01-04 18:30:00 [facility] Diastolic (mm Hg) 2019-01-04 18:30:00 Mem orial [place] Systolic (mm Hg) 2019-01-04 18:30:00 Alejo rial Jorge Procedures This patient has no known procedures. Plan of Care Planned Activity Planned Date Details Comments Source Future Scheduled 2020-02-25 INFLUENZA VACCINE [place] 00:00:00 [code = INFLUENZA VACCINE] Future Scheduled 2014 65+ PNEUMOCOCCAL [place] [facility] 00:00:00 VACCINE (1 of 1 - PPSV23) [code = 65+ PNEUMOCOCCAL VACCINE (1 of 1 - PPSV23)] Future Scheduled 1999-11-09 [facility] SCREENING [code = BREAST CANCER SCREENING] Future Scheduled 1999-11-09 COLONOSCOPY SCREENING [facility] Test 00:00:00 [code = COLONOSCOPY SCREENING] Future Scheduled 1999-11-09 SHINGLES VACCINES (#1) [facility] 00:00:00 [code = SHINGLES VACCINES (#1)] Encounters Start End Encounter Admission Attending Care Care Encounter Source Date/Time Date/Time Type Type Clinicians Facility Department ID 2020-02-29 2020-02-29 JOHN PAUL So [id number] 00:00:00 00:00:00 [facility] [id number] [place] [id number] [facility] [id number] nal [address] 2019-09-05 2019-09-05 Orders Doctor ARCENIO [id number] 00:00:00 00:00:00 Only Unassigned, HARMAN [id number] Post [facility] [id number] 2019-09-02 2019-09-02 Outpatient S[facility]VAN - SRAVAN - [id number] [facility]inic 15:02:00 15:02:00 [facility]umat[facility] 2019-09-02 2019-09-02 Outpatient PRL - PRL - [id number] eClinic 14:55:00 14:55:00 [facility]umatol [facility] 2019-08-05 2019-08-05 Outpatient SRAVAN - SRAVAN - [id number] eClinic 09:30:00 09:30:00 Rheumatol [facility] 2019-07-17 2019-07-17 Outpatient PRL - PRL - [id number] eClinic 13:00:00 13:00:00 Rheumatol [facility] 2019-07-17 2019-07-17 Outpatient SRAVAN - SRAVAN - [id number] eClinic 08:38:00 08:38:00 Rheumatol [facility] 2019-03-19 2019-03-19 Outpatient SRAVAN - SRAVAN - [id number] eClinic 09:16:00 09:16:00 Rheumatol [facility] 2019-02-01 2019-02-01 Outpatient SRAVAN - SRAVAN - [id number] eClinic 12:03:00 12:03:00 Rheumatol [facility] 2019-01-31 2019-01-31 Outpatient PRL - PRL - [id number] eClinic 14:00:00 14:00:00 Rheumatol [facility] 2019-01-04 2019-01-04 Outpatient SRAVAN - SRAVAN - [id number] eClinic 14:06:00 14:06:00 Rheumatol Rheumatolog alAlonso melgar y [facility] 2019-01-04 2019-01-04 Outpatient PRL - PRL - [id number] eClinic 13:30:00 13:30:00 Rheumatol Rheumatolog [facility] Results This patient has no known results.
--- OUTSIDE RECORDS SUMMARY | 2020-03-17 12:46 | XMS REPORT | Summary of Care ---
:1950 Author Organization [facility] Address [address] [place] [address] Care Team Providers Name Role Phone MD Doc Primary Care Provider Reason for Visit Reason Comments Refill Request Encounter Details Date Type Department Care Team Description 02/29/2020 Refill [facility] Moe Rodriguez MD Refill Request - [address] [place] [address] [place] [address] [phone] Allergies Active Allergy Reactions Severity Noted Date Comments Morphine Other - See comments 12/02/2015 VOMITIN G Sulfamethoxazole Unknown - See comments 05/13/2015 P atient states that she does not have t his allergy documented as of this encounter (statuses as of 03/03/2020) Medications Medication Sig Dispensed Refills Start Date End Date Status methotrexate Take 2.5 mg by 0 02/07/2015 A ctive (RHEUMATREX) 2.5 mg mouth daily. tablet foLIC acid (FOLATE) Take 1 mg by 0 Active 1 mg tablet mouth daily. metoclopramide HCl Take 1 tablet 60 tablet 2 11/30/2015 Active (REGLAN) 5 mg tablet by mouth every 6 (six) hours as needed for Nausea and Vomiting (N/V). LORazepam 0.5 mg Take 1 tablet 60 tablet 2 03/07/2019 Active tabletIndications: by mouth 2 Anxiety (two) times daily as needed for Anxiety. HYDROcodone-acetamin Take 1-2 0 02/15/2019 Active ophen 7.5-325 mg per tablets by tablet mouth 3 (three) times daily. LYRICA 50 mg capsule Take 1 capsule 0 02/22/2019 Active by mouth 2 (two) times daily. tiZANidine 2 mg Take 2 mg by 0 02/15/2019 Active tablet mouth 2 (two) times daily. levothyroxine 50 mcg Take 1 tablet 90 tablet 1 08/07/2019 Active tabletIndications: by mouth every Hypothyroidism, morning. unspecified type CARVEDILOL 12.5 mg TAKE 1 TABLET 180 tablet 1 03/03/2020 Active tabletIndications: BY MOUTH TWICE Essential DAILY WITH hypertension, benign MEALS carvediloL 12.5 mg TAKE 1 TABLET 180 tablet 1 08/07/201903/03 Discontinued tabletIndications: BY MOUTH TWICE 0 Essential DAILY WITH hypertension, benign MEALS documented as of this encounter (statuses as of 03/03/2020) Active Problems Problem Noted Date Depression 05/13/2015 Hyperlipidemia 05/13/2015 Essential hypertension, benign 05/13/2015 Hypothyroidism 05/13/2015 Leg pain, anterior, right 02/07/2015 documented as of this encounter (statuses as of 03/03/2020) Social History Tobacco Use Types Packs/Day Years Used Date Never Smoker Smokeless Tobacco: Never Used Alcohol Use Drinks/Week oz/Week Comments No Sex Assigned at Date Recorded Not on file documented as of this encounter Last Filed Vital Signs Not on filedocumented in this encounter Plan of Treatment Health Maintenance Due Date Last Done Comments HEPATITIS C (HCV) SCREEN 1950 DTaP,Tdap,and Td Vaccines (1 - Tdap) 1968 COLON CANCER SCREENING ANNUAL FIT/FOBT 11/09/1999 COLON CANCER SCREENING FIT DNA EVERY 3 11/09/1999 YEARS COLON CANCER SCREENING SIGMOIDOSCOPY EVERY 11/09/1999 5 YEARS Zoster Recombinant Vaccine (SHINGRIX) (1 11/09/1999 of 2) Medicare Wellness Visit 2014 Osteoporosis Screening 2014 PNEUMOCOCCAL VACCINES 65+ (1 of 1 - 2014 PPSV23) INFLUENZA VACCINE (#1) 2020 Breast Cancer Screening (MAMMOGRAM) 08/19/2020 08/19/2019, 06/26/2014 Depression Screening 08/28/2020 08/29/2019 COLONOSCOPY 06/26/2024 06/26/2014 Colorectal Cancer Screening 06/26/2024 documented as of this encounter Implants Implanted Type Area Travel Med Surg Rn Device Shelf Model / Identifier Expiration Date Ser ial / Lot Lens, Konstantin #[id number] - [id number] LENS Right: Konstantin 03/25/2023 [id number] / Implanted: Qty: 1 on 03/27/2019 by Kevin Danielle MD at [facility] 1 [id number] / NA Lens, Konstantin #[id number] - [id number] LENS Konstantin 12/24/2023 [id number] / Implanted: Qty: 1 on 04/10/2019 by Kevin Danielle MD at [facility] 1 [id number] / [id number] documented as of this encounter Results Not on filedocumented in this encounter Visit Diagnoses Diagnosis Essential hypertension, benign documented in this encounter Additional Health Concerns Infection Onset Date Last Indicated Resolved Time Contact - ESBL 05/19/2015 05/19/2015 documented as of this encounter Insurance Payer Benefit Plan / Subscriber ID Effective Phone Address T ype Group Dates MEDICARE MEDICARE PART A [id number] 2014-Pres [phone] [address] Medicare & B ent [id number] [place] [phone] BCBS OF BCBS [id number] 2014-Pres [phone] [facility] TRADITIONAL ent [phone] [place] [address] documented as of this encounter
[2020-03-17] MEDS ORDERED: ONDANSETRON 4 MG/2 ML VIAL ONE (13:08)
[2020-03-17 13:27] LABS: Absolute Lymphocytes (CBC) 0.6 K/uL (0.7-4.9); Basophils % 0.4 % (0-1.3); Lymphocytes % 5.9 % (15.3-44.8); MPV 10.1 fL (7.6-11.3); RBC Red Blood Cell Count 4.35 M/uL (3.86-4.86)
--- NOTE | 2020-03-17 13:37 | RAD REPORT ---
EXAM DESCRIPTION: CT - Abdomen Pelvis Wo Contrast - 03/17/2020 1:25 pm CLINICAL HISTORY: ABD PAIN COMPARISON: Abdomen Pelvis Wo Contrast dated 02/22/2018; Stone Protocol dated 02/01/2018; Abdomen P abiodun Wo Contrast dated 03/04/2016 TECHNIQUE: Axial [address] imaging of the abdomen and pelvis was performed without IV contrast. No IV contrast was given because of allergy, abnormal renal function, patient refusal or physician re quest. No oral contrast. All CT scans are performed using dose optimization technique as appropriate and may include automated exposure control or mA/KV adjustment according to patient size. FINDINGS: No suspicious findings in the lung bases. The liver, spleen and pancreas show no suspicious findings on non-contrast imaging. Cholecystectomy c lips are present. No biliary tree dilatation. No hydronephrosis or obstructing calculus. Punctate nonobstructing calculi seen in each kidney. In th e lateral upper pole right kidney a 12-13 mm round exophytic mass is present. This has been seen on p rior imaging studies with no substantial growth comparing back to 2016. This can be monitored on subs equent studies. No significant adrenal finding. Isodense renal masses and pyelonephritis cannot be ex cluded in the absence of IV contrast. No urinary bladder wall thickening or mass. Air is present in t he lumen presumed to be from a catheterization. This needs correlation with any procedures performed. No dilated bowel loops or bowel wall thickening. Patient has prominent sigmoid diverticulosis without diverticulitis. No worrisome colon process identified. No free air, free fluid or inflammatory stran ding. No hernia, mass or bulky lymphadenopathy. No suspicious bony findings. IMPRESSION: Noncontrast CT abdomen and pelvis imaging is performed and shows no acute or emergent fi nding. Nonacute findings detailed in the body of the report. Full assessment is limited is the absence of IV contrast.
[2020-03-17 13:42] LABS: Albumin 2.8 g/dL (3.4-5.0); Bilirubin Direct 0.5 mg/dL (0-0.2); Bilirubin Total 1.2 mg/dL (0.2-1.0); Potassium 4.1 mmol/L (3.5-5.1); Protein, Total 6.7 g/dL (6.4-8.2)
[2020-03-17 14:17] LABS: Blood Morphology Comment NOT SEEN (NOT SEEN); Platelet Estimate ADEQ; Platelets, Giant PRESENT
[2020-03-17 14:24] LABS: Urine Blood 2+ (NEG); Urine Glucose NEGATIVE (NEG); Urine Protein 2+ (NEG)
[2020-03-17] MEDS ORDERED: CEFTRIAXONE/SWI 1gm 1 GM/10 ML SYR ONE (14:49)
--- NOTE | 2020-03-17 15:12 | EDPHYS ---
Physician Documentation [facility] Name: Vera Chong Age: 69 yrs Sex: Female : 1950 Arrival Date: 03/17/2020 Time: 12:47 Bed 14 Private MD: ED Physician Abner Carvajal HPI: 03/17 13:19 This 69 yrs old Female presents to ER via EMS with complaints of rn nausea/vomiting/abd pain. 13:19 The patient presents to the emergency department with nausea, vomiting, abdominal pain. rn Onset: The symptoms/episode began/occurred 4 day(s) ago. Possible causes: unknown. The symptoms are aggravated by nothing. The symptoms are alleviated by nothing. Severity of symptoms: At their worst the symptoms were moderate in the emergency department the symptoms have improved. The patient has experienced similar episodes in the past. Reports began 3-4 days ago with intermittent chills, feeling hot, epigastric abd pain, assoc with nausea/vomiting, + diarrhea, no chest pain/sob. . Historical: - Allergies: 12:52 No Known Allergies; ll1 - PMHx: 12:52 Fibromyalgia; Hyperlipidemia; Hypertension; Hypothyroidism; Kidney stones; Rheumatoid ll1 Arthritis; Sepsis; - Immunization history:: Flu vaccine is up to date. - Social history:: Smoking status: Patient denies any tobacco usage or history of. - Family history:: not pertinent. - Hospitalizations: : No recent hospitalization is reported. ROS: 13:19 Constitutional: Negative for fever, and weight loss, Eyes: Negative for injury, pain, rn redness, and discharge, Neck: Negative for injury, pain, and swelling, Cardiovascular: Negative for chest pain, palpitations, and edema, Respiratory: Negative for shortness of breath, cough, wheezing, and pleuritic chest pain, Abdomen/GI: Negative for constipation MS/Extremity: Negative for injury and deformity, Skin: Negative for injury, rash, and discoloration, Neuro: Negative for headache, numbness, tingling, and seizure. Exam: 13:19 Constitutional: Overweight female, no acute distress Head/Face: Normocephalic, rn atraumatic. Cardiovascular: Regular rate and rhythm. No pulse deficits. Respiratory: No increased work of breathing, no retractions or nasal flaring. Abdomen/GI: soft, + epigastric and periumbilical tenderness, no rebound Skin: Warm, dry MS/ Extremity: Pulses equal, no cyanosis. Neurovascular intact. Full, normal range of motion. Equal circumference. Neuro: Awake and alert, GCS 15 Vital Signs: 12:50 BP 143 / 59; Pulse 65; Resp 18; Temp 98.9; Pulse Ox 94% on R/A; Pain 0/10; ll1 15:06 BP 131 / 78; Pulse 61; Resp 18; Pulse Ox 94% on R/A; ll1 MDM: 12:47 Patient medically screened. rn 15:10 Differential diagnosis: Nonspecific abd pain, viral gastroenteritis, UTI. Data rn reviewed: vital signs, nurses notes, lab test result(s), radiologic studies, CT scan, and as a result, I will discharge patient. Counseling: I had a detailed discussion with the patient and/or guardian regarding: the historical points, exam findings, and any diagnostic results supporting the discharge/admit diagnosis, lab results, radiology results, the need for outpatient follow up, to return to the emergency department if symptoms worsen or persist or if there are any questions or concerns that arise at home. Response to treatment: the patient's symptoms have markedly improved after treatment, and as a result, I will discharge patient. Special discussion: I discussed with the patient/guardian in detail that at this point there is no indication for admission to the hospital. It is understood, however, that if the symptoms persist or worsen the patient needs to return immediately for re-evaluation. ED course: CT no acute findings. + UTI, will dc home with abx for UTI. . 03/17 12:48 Order name: Basic Metabolic Panel; Complete Time: 13:57 rn 03/17 12:48 Order name: CBC with Diff; Complete Time: 14:34 rn 03/17 12:48 Order name: Hepatic Function; Complete Time: 13:57 rn 03/17 12:48 Order name: Lipase; Complete Time: 13:57 rn 03/17 12:48 Order name: Urine Microscopic Only rn 03/17 13:28 Order name: Manual Differential; Complete Time: 14:34 EDMS 03/17 12:48 Order name: IV Saline Lock; Complete Time: 12:50 rn 03/17 12:48 Order name: Labs collected and sent; Complete Time: 13:11 rn 03/17 12:48 Order name: Urine Dipstick-Ancillary (obtain specimen); Complete Time: 15:09 rn 03/17 13:23 Order name: Abdomen ; Complete Time: 13:57 EDAL 03/17 14:22 Order name: Urine Dipstick--Ancillary (enter results); Complete Time: 14:34 hb Administered Medications: 13:11 Drug: Zofran (Ondansetron) 4 mg Route: IVP; Site: right antecubital; ll1 13:59 Follow up: Response: No adverse reaction; RASS: Alert and Calm (0) ll1 14:52 Drug: Rocephin 1 grams Route: IV; Rate: calculated rate; Site: right antecubital; ll1 15:29 Follow up: Response: No adverse reaction; RASS: Alert and Calm (0); IV Status: ll1 Completed infusion; IV Intake: 10ml Disposition: 03/17/20 15:11 Discharged to Home. Impression: Urinary tract infection, site not specified. - Condition is Stable. - Discharge Instructions: Urinary Tract Infection, Adult. - Prescriptions for Zofran ODT 4 mg Oral tablet,disintegrating - place 1 tablet by TRANSLINGUAL route every 8 hours As needed; 20 tablet. cefpodoxime 100 mg Oral Tablet - take 2 tablet by ORAL route every 12 hours for 10 days take with food; 40 tablet. - Medication Reconciliation Form, Thank You Letter, Antibiotic Education, Prescription Opioid Use form. - Follow up: Private Physician; When: 2 - 3 days; Reason: Recheck today's complaints, Re-evaluation by your physician. - Problem is new. - Symptoms have improved. Signatures: Dispatcher [employer] [facility] Abner Carvajal MD MD rn Lewis, Lynsay, RN RN ll1 Corrections: (The following items were deleted from the chart) 13:23 12:49 Abdomen Pelvis W Con+CT.RAD.BRZ ordered. [facility] 15:33 15:11 03/17/2020 15:11 Discharged to Home. Impression: Urinary tract infection, site ll1 not specified. Condition is Stable. Forms are Medication Reconciliation Form, Thank You Letter, Antibiotic Education, Prescription Opioid Use. Follow up: Private Physician; When: 2 - 3 days; Reason: Recheck today's complaints, Re-evaluation by your physician. Problem is new. Symptoms have improved. rn
--- NOTE | 2020-03-17 15:12 | ER ---
Nurse's Notes [facility] Name: Vera Chong Age: 69 yrs Sex: Female : 1950 Arrival Date: 03/17/2020 Time: 12:47 Bed 14 Private MD: Diagnosis: Urinary tract infection, site not specified Presentation: 03/17 12:50 Chief complaint: Patient states: N/V with epigastric tenderness since Monday. No known ll1 fever. Last BM yesterday. Coronavirus screen: Client denies travel out of the [place] in the last 14 days. nausea, vomiting. Client presents with at least one sign or symptom that may indicate coronavirus-19. Standard/surgical mask placed on the client. Ebola Screen: Patient denies travel to an Ebola-affected area in the 21 days before illness onset. Initial Sepsis Screen: Does the patient meet any 2 criteria? No. Patient's initial sepsis screen is negative. Does the patient have a suspected source of infection? Yes: Acute abdominal pain. Risk Assessment: Do you want to hurt yourself or someone else? Patient reports no desire to harm self or others. Onset of symptoms was March 13, 2020. 12:50 Method Of Arrival: Ambulatory ll1 12:50 Method Of Arrival: EMS: [facility] ll1 12:50 Acuity: HOLLIE 3 ll1 Historical: - Allergies: 12:52 No Known Allergies; ll1 - PMHx: 12:52 Fibromyalgia; Hyperlipidemia; Hypertension; Hypothyroidism; Kidney stones; Rheumatoid ll1 Arthritis; Sepsis; - Immunization history:: Flu vaccine is up to date. - Social history:: Smoking status: Patient denies any tobacco usage or history of. - Family history:: not pertinent. - Hospitalizations: : No recent hospitalization is reported. Screenin:29 Abuse screen: Denies threats or abuse. Nutritional screening: No deficits noted. ll1 Tuberculosis screening: No symptoms or risk factors identified. Fall Risk IV access (20 points). Ambulatory Aid- Crutches/Cane/Walker (15 pts). Gait- Weak (10 pts.). Total [place] Fall Scale indicates High Risk Score (45 or more points). Fall prevention measures have been instituted. Side Rails Up X 2 Placed Close to Nursing Station Frequent Obs/Assessments Occuring Family Present and informed to notify staff if the need to leave the bedside As available patient and family educated on Fall Prevention Program and Strategies. Assessment: 12:50 General: Appears uncomfortable, Behavior is calm, cooperative. Pain: Complains of pain ll1 in epigastric discomfort with palpation. Aggravated by increased activity, weight bearing. Neuro: No deficits noted. Cardiovascular: No deficits noted. Respiratory: No deficits noted. GI: Abdomen is round Bowel sounds present X 4 quads. Abd is soft and non tender X 4 quads. Reports nausea, vomiting. 13:45 Reassessment: Patient and/or family updated on plan of care and expected duration. Pain ll1 level reassessed. Patient is alert, oriented x 3, equal unlabored respirations, skin warm/dry/pink. Patient states feeling better. 14:45 Reassessment: Patient and/or family updated on plan of care and expected duration. Pain ll1 level reassessed. Patient is alert, oriented x 3, equal unlabored respirations, skin warm/dry/pink. Patient states feeling better. Vital Signs: 12:50 BP 143 / 59; Pulse 65; Resp 18; Temp 98.9; Pulse Ox 94% on R/A; Pain 0/10; ll1 15:06 BP 131 / 78; Pulse 61; Resp 18; Pulse Ox 94% on R/A; ll1 ED Course: 12:47 Patient arrived in ED. rn 12:47 Abner Carvajal MD is Attending Physician. rn 12:49 Sonia Schroeder RN is Primary Nurse. ll1 12:50 Maintain EMS IV. Dressing intact. Good blood return noted. Site clean \T\ dry. Gauge \T\ ll 1 site: 22G R hand. 12:51 Triage completed. ll1 12:52 Arm band placed on Patient placed in an exam room, on a stretcher. ll1 13:24 Abdomen In Process Unspecified. EDMS 15:30 Bed in low position. Call light in reach. Side rails up X2. Pulse ox on. NIBP on. ll1 15:30 No provider procedures requiring assistance completed. IV discontinued, intact, ll1 bleeding controlled, No redness/swelling at site. Pressure dressing applied. Administered Medications: 13:11 Drug: Zofran (Ondansetron) 4 mg Route: IVP; Site: right antecubital; ll1 13:59 Follow up: Response: No adverse reaction; RASS: Alert and Calm (0) 1 14:52 Drug: Rocephin 1 grams Route: IV; Rate: calculated rate; Site: right antecubital; ll1 15:29 Follow up: Response: No adverse reaction; RASS: Alert and Calm (0); IV Status: ll1 Completed infusion; IV Intake: 10ml Intake: 15:29 IV: 10ml; Total: 10ml. 1 Outcome: 15:11 Discharge ordered by . rn 15:33 Patient left the ED. 1 15:33 Discharged to home ambulatory. 1 15:33 Condition: stable 15:33 Discharge instructions given to patient, Instructed on discharge instructions, follow up and referral plans. Demonstrated understanding of instructions, follow-up care. Signatures: Dispatcher [employer] EDAbner Bates MD MD rn Lewis, Lynsay, RN RN [facility]
[2020-03-17 16:00] VITALS: TEMP 98.9; O2SAT 94
[2020-03-17 16:01] VITALS: BP 131/78
[2020-03-17 16:16] LABS: Urine Bacteria >50 /HPF (<20); Urine Culture Reflex Order REFLEXED
== END 2020-03-17 15:33 | disposition home or self-care (01) ==
LOC: ER 12:43
DX: N39.0 Urinary tract infection, site not specified (principal); I10 Essential (primary) hypertension
CPT/HCPCS: 96365; 87088; 85025; 87086; 80048; 36415; 80076; 87077 ×2; 87186 ×2; 83690; 74176; 96375; 99284; J0696; J2405; 81003; 81015

== ENCOUNTER 2020-03-19 12:03 | Emergency (ER) | payer OTHER, BC ==
--- OUTSIDE RECORDS SUMMARY | 2020-03-19 12:05 | XMS REPORT | Clinical Summary ---
:1950 Author Organization [facility] Address [address] [place] [address] Care Team Providers Name Role Phone Luis [...] INFLUENZA VACCINE 02/25/2020 Implants Implanted Type Area Roller Shop Supervisor Device Shelf Model / Identifier Expiration Serial / Lot Date Cement Bone Gm Hiviscocty 40gr Smartmix - [id number] Human N/A: DEPUY 08/23/2017 [id number] / Implanted: Qty: 1 on 12/09/2015 by Sancho Jason MD at [facility] Tissue N/A ORTHO-KNEES / Implants [id number] Description:NOT A HUMAN TISSUE IMPLANT. Unable to chart as non-human tissue in [facility]. Cement Bone Gm Hiviscocty 40gr Smartmix - [id number] Human Tissue Right: Knee DEPUY ORTHO-KNEES 08/23/2017 [id number] / Implanted: Qty: 1 on 12/09/2015 by Sancho Jason M D at [facility] Implants / [id number] Description:NOT A HUMAN TISSUE IMPLANT. Unable to chart as non-human tissue in [facility]. [place] Fem Slv Ful Por 34mm - [id number] IPM IMPLANT Right: Knee DEPU Y 05/25/2025 [id number] / Implanted: Qty: 1 on 12/09/2015 by Sancho Jason MD at [facility] [employer] / [id number] Lps Univ Tib Hin Ins Sm 26mm - [id number] IPM IMPLANT Right: Knee DEPUY 02/23/2017 [id number] / Implanted: Qty: 1 on 12/09/2015 by Sancho Jason MD at [facility] [employer] / [id number] S-Rom Noiles Rotating Hinge Noiles Rotat ing Hinge ([facility]) Knee Size 10 Mm Distal Augmentation Blocks, Extra Small/Small/Medium - [id number] IPM IMPLANT Rig t: Knee DEPUY 07/26/2024 [id number] / Implanted: Qty: 1 on 12/09/2015 by Sancho Jason MD at [facility] [employer] / [id number] S-Rom Noiles Rotating Hinge Noiles Rotat ing Hinge (Nr) Knee Size 10 Mm Distal Augmentation Blocks, Extra Small/Small/Medium - [id number] IPM IMPLANT Rig t: Knee DEPUY 07/26/2024 [id number] / Implanted: Qty: 1 on 12/09/2015 by Sancho Jason MD at [facility] [employer] / [id number] Tray Rev Mbt 3x4.8mm - [id number] Knee Joint Right: Knee DEPUY ORTHO 09/23/2025 [id number] / Implanted: Qty: 1 on 12/09/2015 by Sancho Jason M D at [facility] Implants / [id number] Sleeve Tib 45mm - [id number] Knee Joint Right: Knee DEPUY ORTHO-KNEES 04/25/2025 [id number] / Implanted: Qty: 1 on 12/09/2015 by Sancho Jason M D at [facility] Implants / [id number] Stem Knee Flt Univl [id number] - [id number] Knee Joint Right: Knee DEPUY OR THO-KNEES 02/23/2025 [id number] / Implanted: Qty: 1 on 12/09/2015 by Sancho Jason M D at [facility] Implants / [id number] Stem Knee Flt Univl [id number] - [id number] Knee Joint Right: Knee DEPUY OR THO-KNEES 09/23/2025 [id number] / Implanted: Qty: 1 on 12/09/2015 by Sancho Jason M D at [facility] Implants / [id number] Component Fml Ant-Pstr Med-Lat Rt Rotng Hinge Sm [id number] - [id number] Knee Joint Right: Knee DEPUY ORTHO-KNEES 03/25/2019 [id number] / Implanted: Qty: 1 on 12/09/2015 by Sancho Jason M D at [facility] Implants / [id number] Results Not on fileafter 03/19/2019 Insurance Payer Benefit Plan / Subscriber ID Effective Dates Phone Addre ss Type Group MEDICARE MEDICARE PART A [id number] 2014-Present [place], [place] Medicare [place] B BCBS BCBS OUT OF STATE [id number] 2014-Present PPO Advance Directives For more information, please contact: [phone] Type Date Recorded 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
--- OUTSIDE RECORDS SUMMARY | 2020-03-19 12:06 | XMS REPORT | Continuity of Care Document ---
:1950 Author Organization [facility] t Address [address] [place] [address] Care Team Providers Name Role Phone Luis [...] Active 2019-09-05 M emoria itis 02:45:36 l Bertrand Osteoarthr itis Active Problem 09/05/2019 [facility] Vitamin D Problem Active 2019-09-05 Me moria deficiency 02:45:36 l , Vitamin Jorge unspecifie D d deficiency , unspecifie d Active Problem 09/05/2019 [facility] Osteopenia Problem Active 2019-09-05 M emoria 02:45:36 l Jorge Osteopenia Active Problem 09/05/2019 [facility] Fibromyalg Problem Active 2019-09-05 M emoria ia 02:45:36 l Bertrand Fibromyalg ia Active Problem 0 [facility] [...] dahiana chronic 02:45:36 l use of Current Bertrand systemic chronic steroids use of systemic steroids Active Problem 09/05/2019 [facility] Allergies, Adverse Reactions, Alerts Allergy Allergy Status Severity Reaction(s) Onset Inactive Treating Comm ents Source Name Type Date Date Clinician N.K.Vivian.A. N.K.D.A. Active Info Not Alejo dahiana Available 12 l 00:00: Jorge 00 Morphine Propensi Active Other (See [facility] ty to Comments) 08 Methodi adverse 00:00: st reaction 00 s to drug Other Propensi Active EGGS-N/V [place] ty to 12-01 Methodi adverse 00:00: st reaction 00 s Social History Social Habit Start Date Stop Date Quantity Comments Source Sex Assigned At [facility] ethodist Alcohol intake 2016-01-07 2016[facility]07 [facility] non-drinker of alcohol (finding) Smoking Status Start Date Stop Date Source Never smoker [facility] Medications Ordered Filled Start Stop Current Ordering Indication Dosage Frequency Signature Comments Components Source Medication Medication Date Date Medication? Clinician (SIG) Name Name Carvedilol Yes Yasmeen 1 tablet Memoria 3-12 Vo l 02:45: Tizanidine Yes Yasmeen 1 tablet Memoria HCl 3-12 Vo as needed l 02:45: PredniSONE Yes Yasmeen 1 tablet Memoria 3-12 Vo l 02:45: Bertrand 32 Levothyroxi Yes Yasmeen not Memoria ne [...] 2018-0 Yes Nilanjana 1 tablet Memoria 8-29 Daian l 00:00: Methotrexat 2018-0 Yes Nilanjana 4 [...] 19:00:00 [facility] Height 2019-07-17 19:00:00 [facility] Heart Rate 2019-07-17 19:00:00 [facility] Diastolic (mm Hg) 2019-07-17 19:00:00 Mem orial Jorge Systolic (mm Hg) 2019-07-17 19:00:00 Alejo rial Bertrand Weight 2019-01-31 19:00:00 [facility] Height 2019-01-31 19:00:00 [facility] Heart Rate 2019-01-31 19:00:00 [facility] Diastolic (mm Hg) 2019-01-31 19:00:00 Mem orial Bertrand Systolic (mm Hg) 2019-01-31 19:00:00 Alejo rial Bertrand Weight 2019-01-04 18:30:00 [facility] Height 2019-01-04 18:30:00 [facility] Heart Rate 2019-01-04 18:30:00 [facility] Jorge Diastolic (mm Hg) 2019-01-04 18:30:00 Mem orial Bertrand Systolic (mm Hg) 2019-01-04 18:30:00 Alejo rial Jorge Procedures This patient has no known procedures. Plan of Care Planned Activity Planned Date Details Comments Source Future Scheduled 2020-02-25 INFLUENZA VACCINE [place] [facility] 00:00:00 [code = INFLUENZA VACCINE] Future Scheduled 2014 65+ PNEUMOCOCCAL [place] [facility] 00:00:00 VACCINE (1 of 1 - PPSV23) [code = 65+ PNEUMOCOCCAL VACCINE (1 of 1 - PPSV23)] Future Scheduled 1999-11-09 [facility] [code = BREAST CANCER SCREENING] Future Scheduled 1999-11-09 COLONOSCOPY SCREENING [facility] 00:00:00 [code = COLONOSCOPY SCREENING] Future Scheduled 1999-11-09 SHINGLES VACCINES (#1) [facility] [place] [facility] 00:00:00 [code = SHINGLES VACCINES (#1)] Encounters Start End Encounter Admission Attending Care Care Encounter Source Date/Time Date/Time Type Type Clinicians Facility Department ID 2020-02-29 2020-02-29 JOHN PAUL So [id number] 00:00:00 00:00:00 [facility] [id number] [place] [id number] [id number] [address]al [address] 2019-09-05 2019-09-05 Orders Doctor ARCENIO [id number] 00:00:00 00:00:00 Only Unassigned, HARMAN [id number] [place] [facility] [id number] 2019-09-02 2019-09-02 Outpatient SRAVAN - SRAVAN - [id number] [facility]inic 15:02:00 15:02:00 [facility] 2019-09-02 2019-09-02 Outpatient PRL - PRL - [id number] eClinic 14:55:00 14:55:00 [facility]umat[facility] 2019-08-05 2019-08-05 Outpatient SRAVAN - SRAVAN - [id number] eClinic 09:30:00 09:30:00 Rheumatol [facility] 2019-07-17 2019-07-17 Outpatient PRL - PRL - [id number] eClinic 13:00:00 13:00:00 Rheumatol [facility] 2019-07-17 2019-07-17 Outpatient SRAVAN - SRAVAN - [id number] eClinic 08:38:00 08:38:00 Rheumatol [facility] 2019-03-19 2019-03-19 Outpatient SRAVAN - SRAVAN - [id number] eClinic 09:16:00 09:16:00 Rheumatol [facility] 2019-02-01 2019-02-01 Outpatient SRAVAN - SRAVAN - [id number] eClinic 12:03:00 12:03:00 Rheumatol [facility] 2019-01-31 2019-01-31 Outpatient PRL - PRL - [id number] eClinic 14:00:00 14:00:00 Rheumatol [facility] 2019-01-04 2019-01-04 Outpatient SRAVAN - SRAVAN - [id number] eClinic 14:06:00 14:06:00 Rheumatol Rheumatolog alAlonso melgar y [facility] 2019-01-04 2019-01-04 Outpatient PRL - PRL - [id number] eClinic 13:30:00 13:30:00 Rheumatol Rheumatolog [facility] Results This patient has no known results.
[2020-03-19 13:21] LABS: Absolute Lymphocytes (CBC) 0.6 K/uL (0.7-4.9); Basophils % 0.7 % (0-1.3); Hematocrit 43.1 % (36.0-45.0); Lymphocytes % 4.9 % (15.3-44.8); MPV 10.4 fL (7.6-11.3); RBC Red Blood Cell Count 4.45 M/uL (3.86-4.86)
[2020-03-19 13:32] LABS: Albumin 2.8 g/dL (3.4-5.0); Bilirubin Direct 0.3 mg/dL (0-0.2); Bilirubin Total 0.9 mg/dL (0.2-1.0); Potassium 4.1 mmol/L (3.5-5.1); Protein, Total 7.2 g/dL (6.4-8.2)
--- NOTE | 2020-03-19 14:03 | RAD REPORT ---
EXAM DESCRIPTION: CT - Abdomen Pelvis W Contrast - 03/19/2020 1:44 pm CLINICAL HISTORY: Abdominal pain COMPARISON: none. TECHNIQUE: Computed axial tomography of the abdomen pelvis was obtained. 100 cc Isovue-300 was admin istered intravenously. Oral contrast was not requested which limits evaluation of bowel. All CT scans are performed using dose optimization technique as appropriate and may include automated exposure control or mA/KV adjustment according to patient size. FINDINGS: Mild fatty liver Small splenic cyst The pancreas and adrenals are unremarkable 16 millimeter mass extends off of the right kidney. Hounsfield unit on the March 17, 2020 unenhan alessandro scan 29. On the current examination Hounsfield unit equal 54. Mild left hydronephrosis. Left hydroureter. 2 millimeter calculus left UVJ. Mild adjacent bladder wal l thickening. Air bubble within the bladder. Postsurgical changes involve the spine. Cholecystectomy There is no evidence of diverticulitis. Postsurgical changes involve the stomach IMPRESSION: 2 millimeter calculus left UVJ with mild left hydronephrosis. Mild adjacent bladder wall thickening may indicate inflammation or mass. Follow-up recommended 16 millimeter enhancing right renal mass may represent neoplasm
[2020-03-19] MEDS ORDERED: MORPHINE 4 MG/ML SYR ONE ×2 (14:04→15:52)
[2020-03-19] MEDS ORDERED: ONDANSETRON 4 MG/2 ML VIAL ONE (14:05)
[2020-03-19] MEDS ORDERED: MAGNESIUM SULFATE 1 gm IVPB 1 GM/100 ML BAG IV ONE (14:33)
[2020-03-19] MEDS ORDERED: TAMSULOSIN 0.4 MG SR CAP ONE (14:33)
[2020-03-19] MEDS ORDERED: KETOROLAC 30 MG/ML INJ ONE (15:52)
--- NOTE | 2020-03-19 17:23 | EDPHYS ---
Physician Documentation [facility] Name: Vera Chong Age: 69 yrs Sex: Female : 1950 Arrival Date: 03/19/2020 Time: 12:11 Bed 18 Private MD: ED Physician Abner Carvajal HPI: 03/19 14:16 This 69 yrs old Female presents to ER via EMS with complaints of left lower rn abd pain. 14:16 The patient presents with abdominal pain in the left lower quadrant. Onset: The rn symptoms/episode began/occurred last night. The symptoms do not radiate. The symptoms are described as intermittent, sharp. Modifying factors: The symptoms are alleviated by nothing, the symptoms are aggravated by nothing. Severity of pain: At its worst the pain was moderate in the emergency department the pain is unchanged. The patient has experienced similar episodes in the past. The patient has been recently seen at the [facility] Emergency Department. Seen by me 2 days ago, no acute findings on bloodwork or CT abdomen, sent home, states felt better, then last night/this AM, more severe LLQ abd pain with vomiting. No diarrhea. . Historical: - Allergies: 12:18 No Known Allergies; jd3 - PMHx: 12:18 Fibromyalgia; Rheumatoid Arthritis; Kidney stones; Hypothyroidism; Hyperlipidemia; jd3 Hypertension; Sepsis; - Immunization history:: Adult Immunizations unknown. - Social history:: Smoking status: unknown. - Family history:: not pertinent. - Hospitalizations: : No recent hospitalization is reported. ROS: 14:16 Constitutional: Negative for fever, chills, and weight loss, Eyes: Negative for injury, rn pain, redness, and discharge, Neck: Negative for injury, pain, and swelling, Cardiovascular: Negative for chest pain, palpitations, and edema, Respiratory: Negative for shortness of breath, cough, wheezing, and pleuritic chest pain, Abdomen/GI: + LLQ abd pain with nausea/vomiting Back: + left lower back pain : Negative for injury, bleeding, discharge, and swelling, MS/Extremity: Negative for injury and deformity, Skin: Negative for injury, rash, and discoloration, Neuro: Negative for headache, weakness, numbness, tingling, and seizure. Exam: 14:16 Constitutional: This is a well developed, well nourished patient who is awake, alert, rn appears uncomfortable Head/Face: Normocephalic, atraumatic. Cardiovascular: Bradycardic, regular Respiratory: No increased work of breathing, no retractions or nasal flaring. Abdomen/GI: soft, mild LLQ tenderness, no rebound Skin: Warm, dry MS/ Extremity: Pulses equal, no cyanosis. Neurovascular intact. Full, normal range of motion. Equal circumference. Neuro: Awake and alert, GCS 15 Vital Signs: 12:18 BP 169 / 74; Pulse 61; Resp 19 S; Temp 98.3(O); Pulse Ox 100% on R/A; Weight 117.03 kg jd3 (R); Height 5 ft. 0 in. (152.40 cm) (R); Pain 10/10; 13:47 BP 186 / 64; Pulse 56; Resp 18 S; Pulse Ox 97% on R/A; jd3 14:30 BP 160 / 64; Pulse 61; Resp 17 S; Pulse Ox 96% on R/A; jd3 15:44 BP 144 / 77; Pulse 62; Resp 18 S; Pulse Ox 97% on R/A; ll2 16:38 BP 115 / 55; Pulse 67; Resp 17 S; Pulse Ox 99% on R/A; jd3 12:18 Body Mass Index 50.39 (117.03 kg, 152.40 cm) jd3 MDM: 12:12 Patient medically screened. rn 15:16 ED course: patient improved, resting comfortably. rn 16:47 Differential diagnosis: diverticulitis, non-specific abd pain, Ureterolithiasis, rn urinary tract infection. Data reviewed: vital signs, nurses notes, lab test result(s), radiologic studies, CT scan, and as a result, I will discharge patient. Counseling: I had a detailed discussion with the patient and/or guardian regarding: the historical points, exam findings, and any diagnostic results supporting the discharge/admit diagnosis, lab results, radiology results, the need for outpatient follow up, to return to the emergency department if symptoms worsen or persist or if there are any questions or concerns that arise at home. Special discussion: Based on the patient's Hx, exam, and Dx evaluation, there is no indication for emergent surgery or inpatient Tx. It is understood by the patient/guardian that if the Sx's persist or worsen they need to return immediately for re-evaluation. I discussed with the patient/guardian in detail that at this point there is no indication for admission to the hospital. It is understood, however, that if the symptoms persist or worsen the patient needs to return immediately for re-evaluation. ED course: Feeling better, pending urine studies, most likely passed stone into bladder, is much more comfortable, has passed kidney stone in past, takes norco at home and sees pain doctor. . 17:20 ED course: Pt has norco at home, will dc home with rectal phenergan in case zofran not rn helping, is much more comfortable. . 03/19 12:19 Order name: Basic Metabolic Panel; Complete Time: 13:41 rn 03/19 12:19 Order name: CBC with Diff; Complete Time: 13:41 rn 03/19 12:19 Order name: Hepatic Function; Complete Time: 13:41 rn 03/19 12:19 Order name: Lipase; Complete Time: 13:41 rn 03/19 14:15 Order name: CREATININE WHOLE BLOOD; Complete Time: 14:16 EDMS 03/19 17:30 Order name: Urine Dipstick--Ancillary (enter results) em1 03/19 12:19 Order name: CT Abd/Pelvis - IV Contrast Only; Complete Time: 14:06 rn 03/19 12:19 Order name: IV Saline Lock; Complete Time: 13:37 rn 03/19 12:19 Order name: Labs collected and sent; Complete Time: 12:59 rn 03/19 12:19 Order name: Urine Dipstick-Ancillary (obtain specimen); Complete Time: 17:06 rn Administered Medications: 13:34 Not Given (Other Intervention Used): Demerol 25 mg IVP once; RASS on ADMIN: Combtv4, jd3 Very Agttd3, Agttd2, Rstlss1, AlertClm0, Drwsy-1, Lt Sdtn-2, Mod Sdtn-3, Dp Sdtn-4, UnArsble-5 13:35 Not Given (Other Intervention Used): Phenergan 12.5 mg IVP once jd3 13:36 Drug: Demerol 25 mg Route: IM; Site: right deltoid; jd3 14:30 Follow up: Response: No adverse reaction; RASS: Restless (+1) jd3 13:36 Drug: Phenergan 12.5 mg Route: IM; Site: right deltoid; jd3 14:30 Follow up: Response: No adverse reaction jd3 14:02 Drug: NS 0.9% 1000 ml Route: IV; Rate: 1000 ml; Site: left antecubital; jd3 16:00 Follow up: Response: No adverse reaction; IV Status: Completed infusion; IV Intake: jd3 1000ml 14:02 Drug: morphine 4 mg Route: IVP; Site: left antecubital; jd3 15:00 Follow up: Response: No adverse reaction; RASS: Alert and Calm (0) jd3 14:02 Drug: Zofran (Ondansetron) 4 mg Route: IVP; Site: left antecubital; jd3 15:00 Follow up: Response: No adverse reaction jd3 14:29 Drug: Magnesium Sulfate 1 grams Route: IVPB; Infused Over: 1 hrs; Site: left [facility] antecubital; 15:29 Follow up: Response: No adverse reaction; IV Status: Completed infusion; IV Intake: jd3 100ml 14:30 Drug: Flomax 0.4 mg Route: PO; jd3 15:30 Follow up: Response: No adverse reaction jd3 15:43 Drug: TORadol - Ketorolac 15 mg Route: IVP; Site: left antecubital; jd3 16:40 Follow up: Response: No adverse reaction jd3 15:43 Drug: morphine 4 mg Route: IVP; Site: left antecubital; jd3 16:40 Follow up: Response: No adverse reaction; Pain is decreased; RASS: Alert and Calm (0) j Disposition: 03/19/20 17:22 Discharged to Home. Impression: Calculus of lower urinary tract, unspecified. - Condition is Stable. - Discharge Instructions: Kidney Stones, Dietary Guidelines to Help Prevent Kidney Stones. - Prescriptions for Phenergan 25 mg Rectal Suppository - insert 1 suppository by RECTAL route every 6 hours As needed; 12 suppository. - Medication Reconciliation Form, Thank You Letter, Antibiotic Education, Prescription Opioid Use form. - Follow up: Private Physician; When: As needed; Reason: Recheck today's complaints, Re-evaluation by your physician. - Problem is new. - Symptoms have improved. Signatures: Dispatcher [employer] EDMS Abner Carvajal MD MD rn Davies, Jonathon, RN RN jd3 Renita Shea, RN RN ll2 Corrections: (The following items were deleted from the chart) 17:39 17:22 03/19/2020 17:22 Discharged to Home. Impression: Calculus of lower urinary tract, jd3 unspecified. Condition is Stable. Forms are Medication Reconciliation Form, Thank You Letter, Antibiotic Education, Prescription Opioid Use. Follow up: Private Physician; When: As needed; Reason: Recheck today's complaints, Re-evaluation by your physician. Problem is new. Symptoms have improved. rn
--- NOTE | 2020-03-19 17:23 | ER ---
Nurse's Notes [facility] Name: Vera Chong Age: 69 yrs Sex: Female : 1950 Arrival Date: 03/19/2020 Time: 12:11 Bed 18 Private MD: Diagnosis: Calculus of lower urinary tract, unspecified Presentation: 03/19 12:12 Chief complaint: EMS states: "She was here 2 days ago for the report of abdominal pain jd3 that radiates to her back, she was discharged with unknown infection. she is reporting continued pain nausea and vomiting.". Coronavirus screen: At this time, the client does not indicate any symptoms associated with coronavirus-19. Ebola Screen: Patient negative for fever greater than or equal to 101.5 degrees Fahrenheit, and additional compatible Ebola Virus Disease symptoms. Initial Sepsis Screen: Does the patient meet any 2 criteria? No. Patient's initial sepsis screen is negative. Does the patient have a suspected source of infection? No. Patient's initial sepsis screen is negative. Risk Assessment: Do you want to hurt yourself or someone else? Patient reports no desire to harm self or others. Onset of symptoms was March 17, 2020. 12:12 Method Of Arrival: EMS: [facility] jd3 12:12 Acuity: HOLLIE 3 jd3 Historical: - Allergies: 12:18 No Known Allergies; jd3 - PMHx: 12:18 Fibromyalgia; Rheumatoid Arthritis; Kidney stones; Hypothyroidism; Hyperlipidemia; jd3 Hypertension; Sepsis; - Immunization history:: Adult Immunizations unknown. - Social history:: Smoking status: unknown. - Family history:: not pertinent. - Hospitalizations: : No recent hospitalization is reported. Screenin:20 Abuse screen: Denies threats or abuse. Nutritional screening: No deficits noted. jd3 Tuberculosis screening: No symptoms or risk factors identified. Fall Risk Ambulatory Aid- None/Bed Rest/Nurse Assist (0 pts). Gait- Normal/Bed Rest/Wheelchair (0 pts) Mental Status- Oriented to own ability (0 pts). Total Medina Fall Scale indicates No Risk (0-24 pts). Assessment: 12:19 General: Appears in no apparent distress. uncomfortable, Behavior is calm, cooperative, jd3 appropriate for age. Pain: Complains of pain in left lower quadrant Pain radiates to back Quality of pain is described as sharp. Neuro: Level of Consciousness is awake, alert, obeys commands, Oriented to person, place, time, situation. Cardiovascular: Denies chest pain, Capillary refill < 3 seconds Patient's skin is warm and dry. Respiratory: Airway is patent Respiratory effort is even, unlabored, Respiratory pattern is regular, symmetrical, Denies cough, shortness of breath. GI: Abdomen is round non-distended, Abd is soft X 4 quads Abdomen is tender to palpation in left lower quadrant Reports nausea, vomiting. : No signs and/or symptoms were reported regarding the genitourinary system. EENT: No signs and/or symptoms were reported regarding the EENT system. Derm: Skin is intact, Skin is dry, Skin is normal, Skin temperature is warm. Musculoskeletal: Circulation, motion, and sensation intact. Range of motion: intact in all extremities. 13:05 Reassessment: Patient and/or family updated on plan of care and expected duration. Pain jd3 level reassessed. Patient is alert, oriented x 3, equal unlabored respirations, skin warm/dry/pink. charge nurse notified of need for IV help. charge nurse currently busy, reported that she will attempt IV soon. 13:49 Reassessment: Patient and/or family updated on plan of care and expected duration. Pain jd3 level reassessed. Patient is alert, oriented x 3, equal unlabored respirations, skin warm/dry/pink. pt returned from CT, reporting feeling the same. 14:30 Reassessment: Patient and/or family updated on plan of care and expected duration. Pain jd3 level reassessed. Patient is alert, oriented x 3, equal unlabored respirations, skin warm/dry/pink. pt reporting a little relief from pain and nausea at this time. 15:44 Reassessment: Patient and/or family updated on plan of care and expected duration. Pain jd3 level reassessed. Patient is alert, oriented x 3, equal unlabored respirations, skin warm/dry/pink. pt reporting returning pain, provider notified, new orders received, see MAR. 16:36 Reassessment: Patient and/or family updated on plan of care and expected duration. Pain jd3 level reassessed. Patient is alert, oriented x 3, equal unlabored respirations, skin warm/dry/pink. provider at bedside discussing plan of care. Patient states feeling better. Patient states symptoms have improved. 17:39 Reassessment: Patient appears in no apparent distress at this time. Patient and/or jd3 family updated on plan of care and expected duration. Pain level reassessed. Patient is alert, oriented x 3, equal unlabored respirations, skin warm/dry/pink. Patient denies pain at this time. Patient states feeling better. Patient states symptoms have improved. Vital Signs: 12:18 BP 169 / 74; Pulse 61; Resp 19 S; Temp 98.3(O); Pulse Ox 100% on R/A; Weight 117.03 kg jd3 (R); Height 5 ft. 0 in. (152.40 cm) (R); Pain 10/10; 13:47 BP 186 / 64; Pulse 56; Resp 18 S; Pulse Ox 97% on R/A; jd3 14:30 BP 160 / 64; Pulse 61; Resp 17 S; Pulse Ox 96% on R/A; jd3 15:44 BP 144 / 77; Pulse 62; Resp 18 S; Pulse Ox 97% on R/A; ll2 16:38 BP 115 / 55; Pulse 67; Resp 17 S; Pulse Ox 99% on R/A; jd3 12:18 Body Mass Index 50.39 (117.03 kg, 152.40 cm) jd3 ED Course: 12:11 Patient arrived in ED. rs3 12:12 Paolo Espinal, RN is Primary Nurse. jd3 12:12 Abner Carvajal MD is Attending Physician. rn 12:17 Triage completed. jd3 12:19 Arm band placed on. jd3 12:20 Patient has correct armband on for positive identification. Placed in gown. Bed in low jd3 position. Call light in reach. Side rails up X2. Adult w/ patient. Pulse ox on. NIBP on. 12:59 Missed attempt(s): 20 gauge in right antecubital area. Bleeding controlled, band aid jd3 applied, catheter tip intact. 13:37 Inserted saline lock: 22 gauge in left antecubital area, using aseptic technique. jd3 placed by coding tech. 13:45 CT Abd/Pelvis - IV Contrast Only In Process Unspecified. EDMS 17:38 No provider procedures requiring assistance completed. IV discontinued, intact, jd3 bleeding controlled, No redness/swelling at site. Pressure dressing applied. Administered Medications: 13:34 Not Given (Other Intervention Used): Demerol 25 mg IVP once; RASS on ADMIN: Combtv4, jd3 Very Agttd3, Agttd2, Rstlss1, AlertClm0, Drwsy-1, Lt Sdtn-2, Mod Sdtn-3, Dp Sdtn-4, UnArsble-5 13:35 Not Given (Other Intervention Used): Phenergan 12.5 mg IVP once jd3 13:36 Drug: Demerol 25 mg Route: IM; Site: right deltoid; jd3 14:30 Follow up: Response: No adverse reaction; RASS: Restless (+1) jd3 13:36 Drug: Phenergan 12.5 mg Route: IM; Site: right deltoid; jd3 14:30 Follow up: Response: No adverse reaction jd3 14:02 Drug: NS 0.9% 1000 ml Route: IV; Rate: 1000 ml; Site: left antecubital; jd3 16:00 Follow up: Response: No adverse reaction; IV Status: Completed infusion; IV Intake: jd3 1000ml 14:02 Drug: morphine 4 mg Route: IVP; Site: left antecubital; jd3 15:00 Follow up: Response: No adverse reaction; RASS: Alert and Calm (0) jd3 14:02 Drug: Zofran (Ondansetron) 4 mg Route: IVP; Site: left antecubital; jd3 15:00 Follow up: Response: No adverse reaction jd3 14:29 Drug: Magnesium Sulfate 1 grams Route: IVPB; Infused Over: 1 hrs; Site: left jd3 antecubital; 15:29 Follow up: Response: No adverse reaction; IV Status: Completed infusion; IV Intake: jd3 100ml 14:30 Drug: Flomax 0.4 mg Route: PO; jd3 15:30 Follow up: Response: No adverse reaction jd3 15:43 Drug: TORadol - Ketorolac 15 mg Route: IVP; Site: left antecubital; jd3 16:40 Follow up: Response: No adverse reaction jd3 15:43 Drug: morphine 4 mg Route: IVP; Site: left antecubital; jd3 16:40 Follow up: Response: No adverse reaction; Pain is decreased; RASS: Alert and Calm (0) jd3 Intake: 15:29 IV: 100ml; Total: 100ml. jd3 16:00 IV: 1000ml; Total: 1100ml. jd3 Outcome: 17:22 Discharge ordered by . rn 17:38 Discharged to home via wheelchair, with family. jd3 17:38 Condition: stable 17:38 Discharge instructions given to patient, family, Instructed on discharge instructions, follow up and referral plans. medication usage, Demonstrated understanding of instructions, follow-up care, medications, Prescriptions given X 1. 17:39 Patient left the ED. jd3 Signatures: Dispatcher [employer] EDMS Abner Carvajal MD MD rn Davies, Jonathon, RN RN jd3 [place], Lacie, RN RN 2 [place] Nelson3 Corrections: (The following items were deleted from the chart) 13:49 13:47 Reassessment: Patient and/or family updated on plan of care and expected jd3 duration. Pain level reassessed. Patient is alert, oriented x 3, equal unlabored respirations, skin warm/dry/pink. charge nurse notified of need for IV help. charge nurse currently busy, reported that she will attempt IV soon. jd3 15:46 15:44 TORadol - Ketorolac 15 mg IVP in left antecubital ll2 jd3 15:46 15:44 morphine 4 mg IVP in left antecubital ll2 jd3 15:47 15:45 Reassessment: Patient and/or family updated on plan of care and expected jd3 duration. Pain level reassessed. Patient is alert, oriented x 3, equal unlabored respirations, skin warm/dry/pink. pt reporting returning pain, provider notified, new orders received, see MAR. ll2 17:10 16:36 Reassessment: Patient and/or family updated on plan of care and expected jd3 duration. Pain level reassessed. Patient is alert, oriented x 3, equal unlabored respirations, skin warm/dry/pink. provider at bedside discussing plan of care. jd3
[2020-03-19 17:35] LABS: Urine Blood 2+ (NEG); Urine Glucose NEGATIVE (NEG); Urine Protein NEGATIVE (NEG); Urine Specific Gravity 1.015 (1.005-1.030)
[2020-03-19 18:05] VITALS: TEMP 98.3
[2020-03-19 18:12] VITALS: BP 115/55; O2SAT 99
== END 2020-03-19 17:39 | disposition home or self-care (01) ==
LOC: ER 12:03
DX: N21.9 Calculus of lower urinary tract, unspecified (principal); I10 Essential (primary) hypertension; Z87.442 Personal history of urinary calculi
CPT/HCPCS: 96365; 96361; 85025; 80048; 36415; 82565; 80076; 81003; 83690; 74177; 96375; 96372; 99284; Q9967; J3475; J2405

== ENCOUNTER 2020-07-21 20:19 | Observation (INO) | payer OTHER, BC ==
--- OUTSIDE RECORDS SUMMARY | 2020-07-21 20:21 | XMS REPORT | Clinical Summary ---
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 OR; Service: Orthope dics Medical devices from this surgery are in the Implants sec tion. 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,mili ated yrs ago Hypothyroidism Arthritis h/o RA,generalized a rthritis Anesthesia NHAP/NO FHAP-no CP/S OB Anesthesia NHAP/NO FHAP Social History Tobacco Use Types Packs/Day Years Used Date Never Smoker Alcohol Use Drinks/Week oz/Week Comments No Sex Assigned at Date Recorded Not on file Last Filed Vital Signs Not on file Plan of Treatment Health Maintenance Due Date Last Done Comments COVID-19 VACCINE (1 of 2) 1965 BREAST CANCER SCREENING 11/09/1999 COLONOSCOPY SCREENING 11/09/1999 SHINGLES VACCINES (#1) 11/09/1999 65+ PNEUMOCOCCAL VACCINE (1 of 1 - PPSV23) 2014 INFLUENZA VACCINE 01/25/2020 Implants Implanted Type Area Taffy Puller Device Shelf Model / Identifier Expiration Serial / Lot Date Cement Bone Gm Hiviscocty 40gr Smartmix - [id number] Human N/A: DEPUY 08/23/2017 [id number] / Implanted: Qty: 1 on 12/09/2015 by Sancho Jason MD at [facility] Tissue N/A ORTHO-KNEES / Implants [id number] Description:NOT A HUMAN TISSUE IMPLANT. Unable to chart as non-human tissue in [facility]. Cement Bone Gm Hiviscocty 40gr Smartmix - [id number] Human Tissue Right: Knee DEPUY ORTHO-KNEES 08/23/2017 [id number] / Implanted: Qty: 1 on 12/09/2015 by Sancho Jason M D at [facility] Implants / [id number] Description:NOT A HUMAN TISSUE IMPLANT. Unable to chart as non-human tissue in [facility]. [place] Fem Slv Ful Por 34mm - [id number] IPM IMPLANT Right: Knee DEPU Y 05/25/2025 [id number] / Implanted: Qty: 1 on 12/09/2015 by Sancho Jason MD at [facility] [employer] / [id number] Lps Univ Tib Hin Ins Sm 26mm - [id number] IPM IMPLANT Right: Knee DEPUY 02/23/2017 [id number] / Implanted: Qty: 1 on 12/09/2015 by Sancho Jason MD at [facility] [employer] / [id number] S-Rom Noiles Rotating Hinge Noiles Rotat ing Hinge ([facility]) Knee Size 10 Mm Distal Augmentation Blocks, Extra Small/Small/Medium - [id number] IPM IMPLANT [facility] t: Knee DEPUY 07/26/2024 [id number] / Implanted: Qty: 1 on 12/09/2015 by Sancho Jason MD at [facility] [employer] / [id number] S-Rom Noiles Rotating Hinge Noiles Rotat ing Hinge ([facility]) Knee Size 10 Mm Distal Augmentation Blocks, Extra Small/Small/Medium - [id number] IPM IMPLANT [facility] t: Knee DEPUY 07/26/2024 [id number] / Implanted: Qty: 1 on 12/09/2015 by Sancho Jason MD at [facility] [employer] / [id number] Tray Rev Mbt 3x4.8mm - [id number] Knee Joint Right: Knee DEPUY ORTHO 09/23/2025 [id number] / Implanted: Qty: 1 on 12/09/2015 by Sancho Jason M D at [facility] Implants / [id number] Sleeve Tib 45mm - [id number] Knee Joint Right: Knee DEPUY ORTHO-KNEES 04/25/2025 [id number] / Implanted: Qty: 1 on 12/09/2015 by Sancho Jason M D at [facility] Implants / [id number] Stem Knee Flt Univl [id number] - [id number] Knee Joint Right: Knee DEPUY OR THO-KNEES 02/23/2025 [id number] / Implanted: Qty: 1 on 12/09/2015 by Sancho Jason M D at [facility] Implants / [id number] Stem Knee Flt Univl 01o27tm - [id number] Knee Joint Right: Knee DEPUY OR THO-KNEES 09/23/2025 [id number] / Implanted: Qty: 1 on 12/09/2015 by Sancho Jason M D at [facility] Implants / [id number] Component Fml Ant-Pstr Med-Lat Rt Rotng Hinge Sm [id number] - [id number] Knee Joint Right: Knee DEPUY ORTHO-KNEES 03/25/2019 [id number] / Implanted: Qty: 1 on 12/09/2015 by Sancho Jason M D at [facility] / [id number] Results Not on fileafter 07/21/2019 Insurance Payer Benefit Plan / Subscriber ID Effective Dates Phone Addre ss Type Group MEDICARE MEDICARE PART A [id number] 2014-Present MARILYN RUSSELL Medicare AND B BCBS BCBS OUT OF STATE [id number] 2014-Present PPO Advance Directives For more information, please contact: [phone] Type Date Recorded Patient Blood Bank Laboratory Technologist Explanati on Advance Directives, Living Will and Medical Power of Public Relations Consultant
--- OUTSIDE RECORDS SUMMARY | 2020-07-21 20:22 | XMS REPORT | Continuity of Care Document ---
:1950 Author Organization [facility] t Address [address] [place] [address] Care Team Providers Name Role Phone Luis [...] Active 2019-09-05 M emoria itis 02:45:36 l [place] Osteoarthr itis Active Problem 09/05/2019 [facility] Vitamin D Problem Active 2019-09-05 Me moria deficiency 02:45:36 l , Vitamin [place] unspecifie D d deficiency , unspecifie d Active Problem 09/05/2019 [facility] Osteopenia Problem Active 2019-09-05 M emoria 02:45:36 l [place] Osteopenia Active Problem 09/05/2019 [facility] Fibromyalg Problem Active 2019-09-05 M emoria ia 02:45:36 l [place] Fibromyalg ia Active Problem 0 [facility] [...] dahiana chronic 02:45:36 l use of Current Jorge systemic chronic steroids use of systemic steroids Active Problem 09/05/2019 [facility] Allergies, Adverse Reactions, Alerts Allergy Allergy Status Severity Reaction(s) Onset Inactive Treating Comm ents Source Name Type Date Date Clinician N.K.D.A. N.K.D.A. Active Info Not Alejo dahiana Available -12 l 00:00: [place] 00 Morphine Propensi Active Other (See [facility] ty to Comments) 08 Methodi adverse 00:00: st reaction 00 s to drug Other Propensi Active EGGS-N/V [place] ty to 08 Methodi adverse 00:00: st reaction 00 s Social History Social Habit Start Date Stop Date Quantity Comments Source Sex Assigned At [facility] ethodist Alcohol intake 2016-01-07 2016[facility]07 [facility] non-drinker of alcohol (finding) Smoking Status Start Date Stop Date Source Never smoker [facility] Medications Ordered Filled Start Stop Current Ordering Indication Dosage Frequency Signature Comments Components Source Medication Medication Date Date Medication? Clinician (SIG) Name Name Carvedilol Yes Yasmeen 1 tablet Memoria 3-12 Vo l 02:45: Tizanidine Yes Yasmeen 1 tablet Memoria HCl 3-12 Vo as needed l 02:45: PredniSONE Yes Yasmeen 1 tablet Memoria 3-12 Vo l 02:45: [place] 32 Levothyroxi Yes Yasmeen not Memoria ne [...] [place] -acetaminop 6-18 tablet by Met hodsaurabh hen (NORCO 16:27: mouth st 10-325) 19 [...] Value Comments Source Weight 2019-07-17 19:00:00 [facility] [place] Height 2019-07-17 19:00:00 [facility] Heart Rate 2019-07-17 19:00:00 [facility] Diastolic (mm Hg) 2019-07-17 19:00:00 Mem orial [place] Systolic (mm Hg) 2019-07-17 19:00:00 Alejo rial [place] Weight 2019-01-31 19:00:00 [facility] Height 2019-01-31 19:00:00 [facility] [place] Heart Rate 2019-01-31 19:00:00 [facility] Diastolic (mm Hg) 2019-01-31 19:00:00 Mem orial [place] Systolic (mm Hg) 2019-01-31 19:00:00 Alejo rial [place] Weight 2019-01-04 18:30:00 [facility] [place] Height 2019-01-04 18:30:00 [facility] [place] Heart Rate 2019-01-04 18:30:00 [facility] Diastolic (mm Hg) 2019-01-04 18:30:00 Mem orial [place] Systolic (mm Hg) 2019-01-04 18:30:00 Alejo rial Jorge Procedures This patient has no known procedures. Plan of Care Planned Activity Planned Date Details Comments Source Future Scheduled 2020-01-25 INFLUENZA VACCINE [place] [facility] 00:00:00 [code = INFLUENZA VACCINE] Future Scheduled 2014 65+ PNEUMOCOCCAL [place] [facility] 00:00:00 VACCINE (1 of 1 - PPSV23) [code = 65+ PNEUMOCOCCAL VACCINE (1 of 1 - PPSV23)] Future Scheduled 1999-11-09 BREAST CANCER [facility] Test 00:00:00 SCREENING [code = BREAST CANCER SCREENING] Future Scheduled 1999-11-09 COLONOSCOPY SCREENING [facility] 00:00:00 [code = COLONOSCOPY SCREENING] Future Scheduled 1999-11-09 SHINGLES VACCINES (#1) [place] [facility] 00:00:00 [code = SHINGLES VACCINES (#1)] Future Scheduled 1965 COVID-19 VACCINE (1 of [place] [facility] 00:00:00 2) [code = COVID-19 VACCINE (1 of 2)] Encounters Start End Encounter Admission Attending Care Care Encounter Source Date/Time Date/Time Type Type Clinicians Facility Department ID 2020-02-29 2020-02-29 Preston Roach [facility] [id number] 00:00:00 00:00:00 [facility] [id number] [place] [id number] [place] [id number] nal [address] 2019-09-05 2019-09-05 Orders Doctor ARCENIO [id number] 00:00:00 00:00:00 Only Unassigned, HARMAN [id number] [place] [facility] [id number] 2019-09-02 2019-09-02 Outpatient SRAVAN - SRAVAN - [id number] eClinic 15:02:00 15:02:00 [facility] 2019-09-02 2019-09-02 Outpatient PRL - PRL - [id number] eClinic 14:55:00 14:55:00 [facility] 2019-08-05 2019-08-05 Outpatient SRAVAN - SRAVAN - [id number] eClinic 09:30:00 09:30:00 [facility]umat[facility] 2019-07-17 2019-07-17 Outpatient PRL - PRL - [id number] eClinic 13:00:00 13:00:00 [facility] 2019-07-17 2019-07-17 Outpatient SRAVAN - SRAVAN - [id number] eClinic 08:38:00 08:38:00 [facility]umat[facility] 2019-03-19 2019-03-19 Outpatient SRAVAN - SRAVAN - [id number] eClinic 09:16:00 09:16:00 [facility] 2019-02-01 2019-02-01 Outpatient SRAVAN - SRAVAN - [id number] eClinic 12:03:00 12:03:00 [facility]umat[facility] 2019-01-31 2019-01-31 Outpatient PRL - PRL - [id number] eClinic 14:00:00 14:00:00 [facility] 2019-01-04 2019-01-04 Outpatient SRAVAN HATHAWAYU - [id number] eClinic 14:06:00 14:06:00 [facility] 2019-01-04 2019-01-04 Outpatient PRL - PRL - [id number] eClinic 13:30:00 13:30:00 [facility]umat[facility] Results This patient has no known results.
--- OUTSIDE RECORDS SUMMARY | 2020-07-21 20:22 | XMS REPORT | Continuity of Care Document ---
:1950 Author Organization [employer] Care Team Providers Name Role Phone Application Security Unavailable Un available Problems Problem Status Onset Classification Date Comments Sourc e Date Reported Osteoarthritis Active Problem 09/05/2019 [facility] Vitamin D Active Problem 09/05/2019 [facility] deficiency, of [facility] unspecified Osteopenia Active Problem 09/05/[address] [facility] Fibromyalgia Active Problem 09/05/2019 [facility] Encounter for Active Problem 09/05/2019 [facility] immunization of [place] Other chronic pain Active Problem 09/05/2019 [facility] Age related Active Problem 09/05/[address] [facility] osteoporosis of [facility] 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 Encounter for Active Problem 09/05/2019 [facility] therapeutic drug of [place] level monitoring Current chronic Active Problem 09/05/2019 [facility] use of systemic of H ou steroids Medications Medication Details Route Status Patient Ordering Order Source Instructions Provider Date PredniSONE 1 tablet Orally Active 2.5 MG Orally Daina Rheum Once a day 020 [facility] Prolia 60 mg Subcutaneous Active 60 MG/ML Daina Rheum Subcutaneous 019 Ctr of every 6 months Jim Folic Acid 1 tablet Orally Active 1 MG Orally Daina Rheum Once a day 019 [facility] Methotrexate 4 tabs Orally Active 2.5 MG Orally Daina Rheum weekly x qweekly 019 Ctr of 2 weeks Jim then stay on 6 tablets every week Ergocalciferol 1 capsule Orally Active 39817 UNIT Daina Rheu m Orally QWEEKLY 019 Ctr of Jim PredniSONE 1 tablet Orally Active 2.5 MG Orally Vo Rheum Once a day 019 [facility] Carvedilol 1 tablet Orally Active 12.5 MG Orally Vo Rheum twice a day [facility] Tizanidine HCl 1 tablet Orally Active 2 MG Orally Vo Rheu m as needed Twice a day [facility] PredniSONE 1 tablet Orally Active 5 MG Orally Vo Rheum Twice a day [facility] Levothyroxine not NA Active Vo Rheum Sodium defined [facility] Hydrocodone-Acet 1 tablet Orally Active 7.5-325 MG Vo Rhe um aminophen as needed Orally every 6 Ctr o f hrs Jim Lyrica 1 capsule Orally Active 50 MG Orally Vo Rheum Twice a day [facility] Levothyroxine not NA Active Daina Rheum Sodium defined [facility] Allergies, Adverse Reactions, Alerts Substance Category Reaction Severity Reaction Status Date Comments S ource type Reported N.K.D.A. Adverse Info Not Adverse Rheu m Reaction Available Reaction 9 [facility] Immunizations No Data Provided for This Section Results No Data Provided for This Section Pathology Reports No Data Provided for This Section Diagnostic Reports No Data Provided for This Section Consultation Notes No Data Provided for This Section Discharge Summaries No Data Provided for This Section History and Physicals No Data Provided for This Section Vital Signs Vital Sign Value Date Comments Source Weight 258 07/17/2019 [facility] Height 60.0 07/17/2019 [facility] Heart Rate 59 07/17/2019 [facility] Diastolic (mm Hg) 68 07/17/2019 [facility] Systolic (mm Hg) 148 07/17/2019 [facility] Weight 255.8 01/31/2019 [facility] Height 60.0 01/31/2019 [facility] Heart Rate 64 01/31/2019 [facility] Diastolic (mm Hg) 55 01/31/2019 [facility] Systolic (mm Hg) 113 01/31/2019 [facility] Weight 259 01/04/2019 [facility] Height 60.0 01/04/2019 [facility] Heart Rate 56 01/04/2019 [facility] Diastolic (mm Hg) 92 01/04/2019 [facility] Systolic (mm Hg) 161 01/04/2019 [facility] Encounters No Data Provided for This Section Procedures No Data Provided for This Section Assessment and Plan No Data Provided for This Section Plan of Care No Data Provided for This Section Social History No Data Provided for This Section Family History No Data Provided for This Section Advance Directives No Data Provided for This Section Functional Status No Data Provided for This Section
[2020-07-21] MEDS ORDERED: NA CHLORIDE 0.9% 1,000 ML ONE (20:51)
[2020-07-21] MEDS ORDERED: ACETAMINOPHEN 500 MG TAB ONE (20:51)
[2020-07-21] MEDS ORDERED: ONDANSETRON 4 MG/2 ML VIAL ONE (20:51)
[2020-07-21 21:25] LABS: Absolute Lymphocytes (CBC) 0.2 K/uL (0.7-4.9); Basophils % 0.6 % (0-1.3); Hematocrit 43.9 % (36.0-45.0); Lymphocytes % 2.9 % (15.3-44.8); MPV 10.4 fL (7.6-11.3); RBC Red Blood Cell Count 4.75 M/uL (3.86-4.86)
[2020-07-21 21:29] LABS: Protime INR 1.02
[2020-07-21 21:54] LABS: ALT/SGPT 21 U/L (12-78); AST/SGOT 22 U/L (15-37); Albumin 3.1 g/dL (3.4-5.0); Alkaline Phosphatase 115 U/L (45-117); BUN Blood Urea Nitrogen 15 mg/dL (7-18); Bicarbonate 28 mmol/L (21-32); Bilirubin Direct 0.5 mg/dL (0-0.2); Bilirubin Total 1.1 mg/dL (0.2-1.0); Ferritin 371.3 ng/mL (8-388); Glucose Level 191 mg/dL (74-106); Lipase 79 U/L (73-393); Potassium 3.7 mmol/L (3.5-5.1); Protein, Total 6.8 g/dL (6.4-8.2); Sodium Level 141 mmol/L (136-145); Troponin (Emerg Dept Use Only) < 0.02 ng/mL (0.0-0.045)
[2020-07-21 22:05] LABS: Blood Morphology Comment NOT SEEN (NOT SEEN); Platelet Estimate ADEQ
[2020-07-21 22:36] LABS: SARS-COV-2 RT PCR NEGATIVE (NEGATIVE)
[2020-07-21 23:41] LABS: Arterial Blood Carboxyhemoglob 1.2 % (0-1.5); Blood Gas Oxyhemoglobin 95.1 % (94-97); Blood O2 Saturation 97.4 % (92-98.5)
--- NOTE | 2020-07-21 23:48 | ER ---
Nurse's Notes [facility] Name: Vera Chong Age: 69 yrs Sex: Female : 1950 Arrival Date: 07/21/2020 Time: 20:21 Bed 8 Private MD: Diagnosis: Acute respiratory failure with hypoxia Presentation: 07/21 20:21 Chief complaint: EMS states: called out for shortness of breath, fever of 103.0 and em cough, on scene was 90% RA, placed on 2 LPM via NC, pt denies chest pain or exposure to covid, reports nausea. Coronavirus screen: cough unrelated to allergies, fever, nausea. Ebola Screen: Patient negative for fever greater than or equal to 101.5 degrees Fahrenheit, and additional compatible Ebola Virus Disease symptoms Patient denies exposure to infectious person. Patient denies travel to an Ebola-affected area in the 21 days before illness onset. No symptoms or risks identified at this time. Initial Sepsis Screen: Does the patient meet any 2 criteria? RR > 20 per min. HR > 90 bpm. Yes Does the patient have a suspected source of infection? Yes: Productive cough/pneumonia If YES to both, name of provider notified: Clarke Vitale MD. Risk Assessment: Do you want to hurt yourself or someone else? Patient reports no desire to harm self or others. Onset of symptoms was July 21, 2020. 20:21 Method Of Arrival: EMS: [facility] em 20:21 Acuity: HOLLIE 2 em Historical: - Allergies: 20:24 Egg Derived; em - PMHx: 20:24 Fibromyalgia; Hyperlipidemia; Hypertension; Hypothyroidism; Kidney stones; Rheumatoid em Arthritis; Sepsis; - Immunization history:: Adult Immunizations unknown. - Social history:: Smoking status: Patient denies any tobacco usage or history of. Screenin:30 Abuse screen: Denies threats or abuse. Nutritional screening: No deficits noted. ea Tuberculosis screening: No symptoms or risk factors identified. Fall Risk IV access (20 points). Assessment: 20:31 General: Appears uncomfortable, Behavior is calm, cooperative, appropriate for age. ea Pain: Denies pain. Neuro: Level of Consciousness is awake, alert, obeys commands, Oriented to person, place, time. Cardiovascular: Patient's skin is warm and dry. Respiratory: Airway is patent Respiratory effort is even, labored, Respiratory pattern is tachypnea. Derm: Skin is dry, Skin is pale, Skin temperature is warm. 22:21 Reassessment: Patient and/or family updated on plan of care and expected duration. Pain ea level reassessed. Patient is alert, oriented x 3, equal unlabored respirations, skin warm/dry/pink. Pt going to CT. 07/22 00:35 Reassessment: Patient and/or family updated on plan of care and expected duration. Pain ea level reassessed. Patient is alert, oriented x 3, equal unlabored respirations, skin warm/dry/pink. Pt updated on plan of care. Vital Signs: 07/21 20:21 Pulse 91; Resp 24; Temp 102.0(O); Pulse Ox 88% on R/A; Pain 0/10; em 20:28 BP 137 / 61; em 22:24 BP 131 / 77; Pulse 84; Resp 22; Pulse Ox 90% on 3 lpm NC; ea 23:08 BP 114 / 53; Pulse 81; Resp 18; Pulse Ox 94% on 3 lpm NC; ea 23:08 Temp 99.9; ea ED Course: 20:21 Patient arrived in ED. em 20:22 Mario Perez PA is PHCP. [facility] 20:22 Clarke Vitale MD is Attending Physician. jmm 20:24 Triage completed. em 20:24 Arm band placed on. em 20:30 Sowmya Jane, FÁTIMA is Primary Nurse. ea 20:30 Inserted saline lock: 20 gauge in right forearm, using aseptic technique. Blood ea collected. 20:31 Patient has correct armband on for positive identification. Bed in low position. Call ea light in reach. Side rails up X 1. 21:14 CXR XRAY In Process Unspecified. EDMS 22:43 CT Chest For PE Angio In Process Unspecified. EDMS 23:46 Sury Mcleod MD is Hospitalizing Provider. tw4 07/22 00:35 No provider procedures requiring assistance completed. Patient admitted, IV remains in ea place. 08:16 Primary Nurse role handed off by Sowmya Jane, FÁTIMA bd 11:35 Fredi Rosen, RN is Primary Nurse. bp Administered Medications: 07/21 20:41 Drug: Zofran (Ondansetron) 4 mg Route: IVP; Site: right forearm; ea 07/22 00:37 Follow up: Response: No adverse reaction ea 07/21 20:41 Drug: Tylenol 1000 mg Route: PO; ea 07/22 00:37 Follow up: Response: No adverse reaction ea 07/21 20:41 Drug: NS 0.9% 1000 ml Route: IV; Rate: 1 bolus; Site: right forearm; ea 07/22 00:36 Follow up: Response: No adverse reaction; IV Status: Completed infusion; IV Intake: ea 1000ml 00:21 Drug: DuoNeb (3:1) (2.5 mg - 0.5 mg) 3 ml Route: Nebulizer; ea 00:36 Follow up: Response: No adverse reaction ea 02:44 Drug: Rocephin - (cefTRIAXone) 1 grams Route: IVPB; Infused Over: 30 mins; Site: right wh forearm; 04:10 Follow up: Response: No adverse reaction; IV Status: Completed infusion Intake: 00:36 IV: 1000ml; Total: 1000ml. ea Outcome: 07/21 23:47 Decision to Hospitalize by Provider. tw4 07/22 00:36 Admitted to ER Hold. Please see [facility] for further documentation. ea Condition: stable Instructed on the need for admit, Demonstrated understanding of instructions. 11:35 Discharged to PT D/C HOME FROM [facility] bp 11:35 Patient left the ED. bp Signatures: Dispatcher [employer] EDAndreina Toney Joel, PA PA jmm Munoz, Edgar, RN Sowmya Adler, RN Rickey Shea ea, RN RN wh Peltier, Brian, RN RN bp Wadley, Terrence, MD MD tw4
--- NOTE | 2020-07-21 23:48 | EDPHYS ---
Physician Documentation [facility] Name: Vera Chong Age: 69 yrs Sex: Female : 1950 Arrival Date: 07/21/2020 Time: 20:21 Bed 8 Private MD: ED Physician Clarke Vitale HPI: 07/22 06:15 This 69 yrs old Female presents to ER via EMS with complaints of Shortness Of tw4 Breath. 06:15 The patient has shortness of breath at rest. Onset: The symptoms/episode began/occurred tw4 today. Duration: The symptoms are continuous, and are unchanged since they started. The patient's shortness of breath has no apparent modifying factors. Associated signs and symptoms: Pertinent positives: BODY ACHES, WEAKNESS. Severity of symptoms: At their worst the symptoms were moderate in the emergency department the symptoms have improved. Historical: - Allergies: 07/21 20:24 Egg Derived; em - PMHx: 20:24 Fibromyalgia; Hyperlipidemia; Hypertension; Hypothyroidism; Kidney stones; Rheumatoid em Arthritis; Sepsis; - Immunization history:: Adult Immunizations unknown. - Social history:: Smoking status: Patient denies any tobacco usage or history of. ROS: 07/22 06:15 Constitutional: Negative for fever, chills, and weight loss, Eyes: Negative for injury, tw4 pain, redness, and discharge, Cardiovascular: Negative for chest pain, palpitations, and edema, Abdomen/GI: Negative for abdominal pain, nausea, vomiting, diarrhea, and constipation, Back: Negative for injury and pain, MS/Extremity: Negative for injury and deformity, Skin: Negative for injury, rash, and discoloration, Neuro: Negative for headache, weakness, numbness, tingling, and seizure. Respiratory: Positive for shortness of breath. 06:15 Respiratory: Positive for Negative for cough, dyspnea on exertion, hemoptysis, tw4 orthopnea. Exam: 06:15 Constitutional: This is a well developed, well nourished patient who is awake, alert, tw4 and in no acute distress. Head/Face: Normocephalic, atraumatic. Chest/axilla: Normal chest wall appearance and motion. Nontender with no deformity. No lesions are appreciated. Cardiovascular: Regular rate and rhythm with a normal S1 and S2. No gallops, murmurs, or rubs. Normal PMI, no JVD. No pulse deficits. Respiratory: Lungs have equal breath sounds bilaterally, clear to auscultation and percussion. No rales, rhonchi or wheezes noted. No increased work of breathing, no retractions or nasal flaring. Abdomen/GI: Soft, non-tender, with normal bowel sounds. No distension or tympany. No guarding or rebound. No evidence of tenderness throughout. Back: No spinal tenderness. No costovertebral tenderness. Full range of motion. MS/ Extremity: Pulses equal, no cyanosis. Neurovascular intact. Full, normal range of motion. Neuro: Awake and alert, GCS 15, oriented to person, place, time, and situation. Cranial nerves II-XII grossly intact. Motor strength 5/5 in all extremities. Sensory grossly intact. Cerebellar exam normal. Normal gait. Vital Signs: 07/21 20:21 Pulse 91; Resp 24; Temp 102.0(O); Pulse Ox 88% on R/A; Pain 0/10; em 20:28 BP 137 / 61; em 22:24 BP 131 / 77; Pulse 84; Resp 22; Pulse Ox 90% on 3 lpm NC; ea 23:08 BP 114 / 53; Pulse 81; Resp 18; Pulse Ox 94% on 3 lpm NC; ea 23:08 Temp 99.9; ea MDM: 21:21 Patient medically screened. 07/22 06:15 Differential diagnosis: Anemia pneumonia, Pneumothorax pulmonary edema, Pulmonary tw4 Embolism reactive airway disease, Sepsis. Antibiotic administration: Rocephin and Zithromax given. Data reviewed: vital signs, nurses notes. Data interpreted: Pulse oximetry: Interpretation: normal. Counseling: I had a detailed discussion with the patient and/or guardian regarding: the historical points, exam findings, and any diagnostic results supporting the discharge/admit diagnosis, radiology results. Special discussion: I discussed with the patient/guardian in detail that at this point there is no indication for admission to the hospital. It is understood, however, that if the symptoms persist or worsen the patient needs to return immediately for re-evaluation. 07/21 20:37 Order name: Blood Culture Adult (2) 4 07/21 20:37 Order name: BMP 4 07/21 20:37 Order name: C-Reactive Protein 07/21 20:37 Order name: CBC with Diff 07/21 20:37 Order name: D-Dimer 07/21 20:37 Order name: Ferritin 07/21 20:37 Order name: Flu 07/21 20:37 Order name: Lactate 07/21 20:37 Order name: LFT's 07/21 20:37 Order name: Lipase 07/21 20:37 Order name: Procalcitonin 07/21 20:37 Order name: PT-INR; Complete Time: 22:03 07/21 20:37 Order name: Ptt, Activated; Complete Time: 22:03 07/21 22:04 Interpretation: Abnormal: PTT 22.1. 07/21 20:37 Order name: Strep; Complete Time: 00:05 07/21 20:37 Order name: Troponin (emerg Dept Use Only); Complete Time: 22:03 07/21 20:37 Order name: Urine Microscopic Only 07/21 20:37 Order name: Blood Culture [facility] 07/21 20:37 Order name: Basic Metabolic Panel; Complete Time: 22:03 [facility] 07/21 22:04 Interpretation: Normal except: GLUC 191; GFR 43. 07/21 20:37 Order name: C-Reactive Protein; Complete Time: 22:03 [facility] 07/21 22:04 Interpretation: Abnormal: C-REACTIVE PROT 105.00. 07/21 20:37 Order name: CBC with Automated Diff; Complete Time: 23:19 [facility] 07/21 23:19 Interpretation: Normal except: MCV 92.4; PLT 121; LYM% 2.9; DG% 90.4. 07/21 20:37 Order name: D-Dimer; Complete Time: 22:03 [facility] 07/21 22:04 Interpretation: Abnormal: D-DIMER 3843. 07/21 20:37 Order name: Ferritin; Complete Time: 22:03 [facility] 07/21 20:37 Order name: Lactate; Complete Time: 22:03 [facility] 07/21 20:37 Order name: Liver (Hepatic) Function; Complete Time: 22:03 [facility] 07/21 22:04 Interpretation: Normal except: A/G 0.8; ALB 3.1; BILID 0.5; GLOB 3.7; BILIT 1.1. 07/21 20:37 Order name: Lipase; Complete Time: 22:03 [facility] 07/21 20:37 Order name: Procalcitonin; Complete Time: 22:03 [facility] 07/21 22:04 Interpretation: Abnormal: Procalcitonin 0.46. tw4 07/21 20:37 Order name: CXR XRAY 4 07/21 20:37 Order name: EKG; Complete Time: 20:38 07/21 20:37 Order name: Cardiac monitoring; Complete Time: 20:42 07/21 20:37 Order name: Droplet/Contact Precautions; Complete Time: 20:42 07/21 20:37 Order name: EKG - Nurse/Tech; Complete Time: 20:42 07/21 20:37 Order name: IV Start; Complete Time: 20:42 07/21 20:37 Order name: Labs collected and sent; Complete Time: 21:01 07/21 20:37 Order name: O2 Per Protocol; Complete Time: 20:42 07/21 20:37 Order name: O2 Sat Monitoring; Complete Time: 20:42 07/21 21:26 Order name: Manual Differential; Complete Time: 23:18 [facility] 07/21 23:19 Interpretation: Normal except: BANDS [F] 14; LYM 0; BASOS 3. tw07/21 22:02 Order name: CT Chest For PE Angio tw4 07/21 22:26 Order name: Throat Culture [facility] 07/21 22:36 Order name: COVID-19/FLU A+B; Complete Time: 23:19 [facility] 07/21 23:19 Interpretation: Within normal limits: SARSCOV2 RT PCR NEGATIVE. tw07/21 23:18 Order name: ABG; Complete Time: 23:45 tw4 07/22 01:47 Order name: Comprehensive Metabolic Panel [facility] 07/22 01:47 Order name: Comprehensive Metabolic Panel [facility] 07/22 01:47 Order name: CONS Pharmacy Consult [facility] 07/22 01:47 Order name: CONS Physician Consult [facility] 07/22 01:47 Order name: Heart Healthy [facility] 07/22 01:47 Order name: CBC with Automated Diff [facility] 07/22 01:47 Order name: CBC with Automated Diff [facility] 07/22 01:47 Order name: Troponin I [facility] 07/22 01:47 Order name: Troponin I [facility] 07/22 01:47 Order name: Troponin I [facility] 07/22 01:47 Order name: Troponin I [facility] EC:36 Rate is 90 beats/min. Rhythm is regular. QRS [place] is Normal. [place] interval is normal. QRS tw4 interval is normal. QT interval is normal. No Q waves. T waves are Inverted in lead III. T waves are Flattened in lead aVF. No ST changes noted. Clinical impression: NSR w/ Non-specific ST/T Changes. Interpreted by me. Reviewed by me. Administered Medications: 07/21 20:41 Drug: Zofran (Ondansetron) 4 mg Route: IVP; Site: right forearm; 07/22 00:37 Follow up: Response: No adverse reaction 07/21 20:41 Drug: Tylenol 1000 mg Route: PO; 07/22 00:37 Follow up: Response: No adverse reaction 07/21 20:41 Drug: NS 0.9% 1000 ml Route: IV; Rate: 1 bolus; Site: right forearm; 07/22 00:36 Follow up: Response: No adverse reaction; IV Status: Completed infusion; IV Intake: ea 1000ml 00:21 Drug: DuoNeb (3:1) (2.5 mg - 0.5 mg) 3 ml Route: Nebulizer; ea 00:36 Follow up: Response: No adverse reaction 02:44 Drug: Rocephin - (cefTRIAXone) 1 grams Route: IVPB; Infused Over: 30 mins; Site: right forearm; 04:10 Follow up: Response: No adverse reaction; IV Status: Completed infusion Disposition: 07/21/20 23:47 Hospitalization ordered by Sury Mcleod for Inpatient Admission. Preliminary diagnosis is Acute respiratory failure with hypoxia. - Bed requested for [facility] ER HOLD. - Status is Inpatient Admission. bp - Condition is Stable. - Problem is new. - Symptoms are unchanged. Signatures: Dispatcher [employer] [facility] Chu Smith RN RN em Garcia, Cindy, RN RN cg Antunez, Elena, RN RN ea Habalo, Winsy, RN RN Fredi Rosen RN RN bp Wadley, Terrence, MD MD tw4 Corrections: (The following items were deleted from the chart) 07/21 21:46 20:37 Influenza Screen (A ordered. [facility] 21:46 21:32 CORONAVIRUS ordered. [facility] 07/22 00:15 07/21 23:47 Hospitalization Ordered by Sury Mcleod MD for Inpatient Admission. cg Preliminary diagnosis is Acute respiratory failure with hypoxia. Bed requested for Telemetry/MedSurg (Inpatient). Status is Inpatient Admission. Condition is Stable. Problem is new. Symptoms are unchanged. tw4 07/22 11:35 00:15 07/21/2020 23:47 Hospitalization Ordered by Sury Mcleod MD for Inpatient bp Admission. Preliminary diagnosis is Acute respiratory failure with hypoxia. Bed requested for [facility] ER HOLD. Status is Inpatient Admission. Condition is Stable. Problem is new. Symptoms are unchanged. cg
[2020-07-22] MEDS ORDERED: IPRATROPIUM BROM 0.5MG/2.5ML ONE (00:27)
[2020-07-22] MEDS ORDERED: ALBUTEROL 2.5 MG/3 ML NEB SOL ONE ×2 (00:27→00:28)
[2020-07-22] MEDS ORDERED: ALBUTEROL 2.5 MG/3 ML NEB SOL NEB PRN (01:44)
[2020-07-22] MEDS ORDERED: ACETAMINOPHEN 500 MG TAB PO PRN (01:44)
[2020-07-22] MEDS ORDERED: ONDANSETRON 4 MG/2 ML VIAL IV PRN (01:44)
[2020-07-22] MEDS ORDERED: MORPHINE 2 MG/ML SYR IV PRN (01:44)
[2020-07-22] MEDS ORDERED: GUAIFENESIN/DM 5 ML UCUP PO PRN (01:47)
[2020-07-22] MEDS ORDERED: HYDRALAZINE HCL 20 MG/ML VIAL IV PRN (01:47)
[2020-07-22 01:59] VITALS: BMI 41.6
[2020-07-22] MEDS ORDERED: NA CHLORIDE 0.9% 1,000 ML IV SCH (02:00)
--- NOTE | 2020-07-22 02:02 | P.HP ---
Certification for Inpatient With expected LOS: >2 Midnights Patient will require the following post-hospital care: None Practitioner: I am a practitioner with admitting privileges, knowledge of patient current condition, hospital course, and medical plan of care. Services: Services provided to patient in accordance with Admission requirements found in Title 42 Section 412.3 of the Code of Federal Regulations Patient History Date of Service: 07/22/20 History of Present Illness: 69 yr old female with past medical hx of HTN , Rheumatoid arthritios , renal calculi , admitted for progressive SOB with intermittent ferver with chills . Ptainet pema nay nsuea or votming . on amdisison she was noted with elevated marlon at 102.2 . She was also noted with hypoxia with 02 sat down to low 80s . SH nelson was started on supplemental oxygen . chest xray and later CT chest shows no pulmonary embolism but mild base infiltrate . Her Covid and influenza screen has been negative . She is being admitted for pneurmonia Allergies egg Allergy (Verified 07/22/20 02:03) Itching/Hives/Rash Home Medications: Hydrocodone 7.5/APAP 325 [[place] 7.5/325 mg*] 1.5 tab PO BID PRN 02/02/18 Leflunomide 20 mg PO DAILY 02/02/18 Prednisolone [Millipred] 5 mg PO DAILY 02/02/18 carvediloL [Coreg*] 12.5 mg PO BID 02/02/18 Hydroxychloroquine [Plaquenil] 400 mg PO DAILY 07/22/20 - Past Medical/Surgical History Diabetic: No -: Fibromyalgia -: Rheumatoid arthritis -: Hyperlipidemia -: Hypertension -: Hypothyroidism -: Obesity -: Chronic knee pain -: Chronic back pain -: Back surgery -: Bilat knee replacement -: Hysterectomy -: Cholecystectomy -: Thyroidectomy -: Appendectomy Psychosocial/ Personal History: She is . She has 1 child. She does not work. - Family History Father -: Cancer Mother -: Heart disease, Hypertension, Stroke - Social History Alcohol use: No CD- Drugs: Yes Caffeine use: No Review of Systems 10-point ROS is otherwise unremarkable Physical Examination - Physical Exam General: Alert, In no apparent distress, Oriented x3, Obese HEENT: Atraumatic, Normocephalic Neck: 2+ carotid pulse no bruit, JVD not distended, No Thyromegaly Respiratory: Normal air movement, Diminished, Other (on 02 ) Cardiovascular: Normal pulses, Regular rate/rhythm, Normal S1 S2 Capillary refill: <2 Seconds Gastrointestinal: Normal bowel sounds, Soft and benign, Non-distended, No ascites, No tenderness Musculoskeletal: No clubbing, No swelling Integumentary: No rashes, No breakdown, No significant lesion Neurological: Normal speech, Normal strength at 5/5 x4 extr, Normal tone, Sensation intact, Cranial nerves 3-12 intact - Studies Laboratory Data (last 24 hrs) 07/21/20 21:08: PT 12.0, INR 1.02, APTT 22.1 L 07/21/20 21:08: WBC 7.00, Hgb 14.5, Hct 43.9, Plt Count 121 L 07/21/20 21:08: Sodium 141, Potassium 3.7, BUN 15, Creatinine 1.24, Glucose 191 H, Total Bilirubin 1.1 H, AST 22, ALT 21, Alkaline Phosphatase 115, Lipase 79 Microbiology Data (last 24 hrs): 07/21/20 21:29 Throat Group A Streptococcus Rapid Screen - Final Assessment and Plan - Problems (Diagnosis) (1) Chronic renal disease Current Visit: No Status: Chronic (2) Hypertension Onset Date: 02/02/18 Current Visit: No Status: Chronic Qualifiers: (3) Rheumatoid arthritis Onset Date: 02/02/18 Current Visit: No Status: Chronic - Advance Directives Does patient have a Living Will: Yes Does patient have a Durable POA for Healthcare: Yes - Code Status/Comfort Care Code Status Assessed: Yes Physician Review: Patient Assessed, Agree with Above Assessment and Plan Physician Review Additional Text: Presumed Right Pneumonia- likley CAP HTN Rheumatoid Arthritis PLAN Pneumonia - will start empirical antibiotics - obtain sputum for c/s - start zosyn q8h - blood cx x2 -c/w supplemental 02 - start gentle iVF NS - Will adjust abx based on sensitivity HTN -c/w coreg , controlled DVT prop - sc lovneox Advance Directive -full code Dispo - >48 hrs Time Spent Managing Pts Care (In Minutes): 65
[2020-07-22] MEDS ORDERED: NA CHLORIDE 0.9% 1,000 ML ONE (02:30)
[2020-07-22] MEDS: IPRATROPIUM BROM 0.5MG/2.5ML NEB SCH ×2 (02:40→08:00)
[2020-07-22] MEDS ORDERED: CEFTRIAXONE/SWI 1gm 1 GM/10 ML SYR ONE (02:56)
[2020-07-22 05:32] VITALS: TEMP 98.2
[2020-07-22] MEDS ORDERED: PANTOPRAZOLE 40MG TABLET PO ONE (05:57)
--- NOTE | 2020-07-22 06:27 | EKG ---
Test Date: 2020-07-21 Test Time: 20:32:38 Net Software Architect: ANISHA MEASUREMENT RESULTS: Intervals: Rate: 90 WA: 190 QRSD: 82 QT: 334 QTc: 408 [place]: P: 26 WA: 190 QRS: 48 T: 29 INTERPRETIVE STATEMENTS: Normal sinus rhythm Possible Anterior infarct, age undetermined Abnormal ECG Compared to ECG 02/05/2018 07:03:49 Myocardial infarct finding now present Sinus arrhythmia no longer present Electronically Signed On 07-22-20 06:26:59 CAMPUS COORDINATOR by Nico Valdes
[2020-07-22] MEDS ORDERED: PANTOPRAZOLE 40MG TABLET PO SCH (06:30)
--- NOTE | 2020-07-22 06:46 | RAD REPORT ---
EXAM DESCRIPTION: RAD - Chest Single View - 07/21/2020 9:16 pm CLINICAL HISTORY: SOB COMPARISON: December 2019 TECHNIQUE: AP portable chest image was obtained 07/21/2020 9:16 pm . FINDINGS: No focal lung parenchymal process seen. Interstitial pattern is accentuated slightly by chavo dy habitus and shallow inspiration portable exam limitation. Significant failure or volume overload a re not suspected. Heart and vasculature are normal. No measurable pleural effusion and no pneumothora x. No acute bony abnormality seen. No acute aortic findings suspected. IMPRESSION: No acute cardiopulmonary process.
[2020-07-22 08:54] VITALS: O2SAT 97
[2020-07-22] MEDS ORDERED: PREDNISOLONE 5 MG PO SCH (09:00)
[2020-07-22] MEDS ORDERED: LEVOTHYROXINE SOD 0.1 MG TAB PO SCH (09:00)
[2020-07-22] MEDS ORDERED: HOME MED 1 EA UNK (Leflunomide [Leflunomide] 20 MG Tablet) PO SCH (09:00)
[2020-07-22] MEDS ORDERED: INFLUENZA VACCINE (for 3y+) 0.5 ML DOSE IMVAC ONE ×2 (09:00→10:37)
[2020-07-22] MEDS ORDERED: ENOXAPARIN 40 MG/0.4 ML SQ SCH (09:00)
[2020-07-22] MEDS ORDERED: carvediloL 12.5 MG TAB PO SCH (09:00)
[2020-07-22] MEDS ORDERED: PNEUMOCOCCAL VACCINE 0.5 ML IMVAC ONE ×2 (09:00→10:37)
[2020-07-22] MEDS ORDERED: PIPER/TAZO/NS 3.375gm 3.375 GM/100 ML BAG IVPB SCH (09:00)
--- NOTE | 2020-07-22 09:34 | RAD REPORT ---
EXAM DESCRIPTION: CT - Chest For Pe Angio - 07/22/2020 6:26 am CLINICAL HISTORY: DYSPNEA TECHNIQUE: Contiguous axial images obtained through the chest during angiographic phase following th e uneventful administration of IV contrast. Sagittal and coronal reformatted images were provided. NH P reformatted images were provided. This exam was performed according to our departmental dose-optimization program, which includes autom ated exposure control, adjustment of the mA and/or kV according to patient size and/or use of iterati ve reconstruction technique. COMPARISON: No prior exams provided for comparison. FINDINGS: Diagnostic quality: There is good opacification of the pulmonary arterial tree. Motion art ifact degrades image quality and limits evaluation of segmental and subsegmental vessels. Lungs: No focal consolidation. Airways are patent. Pleura: No effusion. No pneumothorax. Heart and pericardium: The heart is enlarged. No pericardial effusion. Mediastinum and anita: No pathologically enlarged lymph nodes. Lower neck and chest wall: The left lobe of the thyroid is enlarged and mildly heterogeneous. The rig ht lobe is not visualized. Vessels: No pulmonary arterial filling defects. Mild to moderate atherosclerotic disease. No thoracic aortic aneurysm. Upper abdomen: The liver is enlarged and diffusely low in density compatible with steatosis. Postsurg ical changes of the proximal stomach. Bones: Mild multilevel spondylosis. No acute fracture. IMPRESSION: 1. Motion artifact degrades image quality and limits evaluation of segmental and subse gmental vessels. No central pulmonary embolic disease. 2. Incidental heterogeneous and enlarged thyroid. Recommend thyroid US. Reference: J Am Shemar Radiol . 2015 Jul;12(2): 143-50 3. Other findings as above. Electronically signed by: Dinah Ludwig MD 07/21/2020 11:01 PM DEPUTY CHIEF EXECUTIVE Due to temporary technical issues with the PACS/Fluency reporting system, reports are being signed by the in house radiologists without review as a courtesy to insure prompt reporting. The interpreting radiologist is fully responsible for the content of the report.
[2020-07-22] MEDS ORDERED: predniSONE 10 MG TAB ONE (10:36)
[2020-07-22] MEDS ORDERED: PIPER/TAZO/NS 3.375gm 3.375 GM/100 ML BAG ONE (10:37)
[2020-07-22] MEDS ORDERED: ENOXAPARIN 40 MG/0.4 ML SQ ONE (10:37)
[2020-07-22 10:48] VITALS: BP 149/65
--- NOTE | 2020-07-22 12:02 | P.DS ---
Admission Date: 07/22/20 Discharge Date: 07/22/20 Disposition: ROUTINE DISCHARGE Discharge Condition: FAIR - Problems (1) Pneumonia Status: Acute (2) Hypertension Onset Date: 02/02/18 Status: Chronic Qualifiers: (3) Rheumatoid arthritis Onset Date: 02/02/18 Status: Chronic (4) Chronic kidney disease, stage 3 Status: Acute Brief History of Present Illness: 69-year-old woman with a history of hypertension, rheumatoid arthritis, renal calculi was admitted because of progressive shortness of breath with intermittent fever and chills. Patient was noted to be hypoxemic with oxygen saturation down to the 80s on room air. She was also febrile with a temperature of 102.2 patient was started on supplemental oxygen. CTA thorax was performed which demonstrated no pulmonary embolism but mild basal infiltrate. Her COVID and influenza screen were negative. Patient admitted for further management. Hospital Course: Patient placed under observation and started on IV Zosyn for pneumonia. She had no urinary symptoms, no flank pain. Patient's symptoms resolved the following morning. She had no leukocytosis. She was also tolerating room air with good oxygen saturation. She has mild pneumonia as reported in the CTA thorax. Patient requests to go home this morning. She is discharged with oral Augmentin to continue treatment for the pneumonia. All her other medications are resumed on discharge. Vital Signs/Physical Exam: Temp Pulse Resp BP Pulse Ox 98.2 F 73 18 149/65 H 94 07/22/20 08:00 07/22/20 09:00 07/22/20 08:00 07/22/20 09:00 07/22/20 08:00 General: Alert, In no apparent distress, Oriented x3 HEENT: Mucous membr. moist/pink Neck: Supple Respiratory: Clear to auscultation bilaterally, Diminished Cardiovascular: No edema, Regular rate/rhythm, Normal S1 S2 Gastrointestinal: Normal bowel sounds, Soft and benign, Non-distended, No tenderness Musculoskeletal: No swelling, No tenderness Integumentary: No rashes, No erythema Neurological: Normal strength at 5/5 x4 extr, Cranial nerves 3-12 intact Laboratory Data at Discharge: WBC 7.00 K/uL (4.3-10.9) 07/21/20 21:08 Hgb 14.5 g/dL (12.0-15.0) 07/21/20 21:08 Hct 43.9 % (36.0-45.0) 07/21/20 21:08 Plt Count 121 K/uL (152-406) L 07/21/20 21:08 PT 12.0 SECONDS (9.5-12.5) 07/21/20 21:08 INR 1.02 07/21/20 21:08 APTT 22.1 SECONDS (24.3-36.9) L 07/21/20 21:08 Sodium 141 mmol/L (136-145) 07/21/20 21:08 Potassium 3.7 mmol/L (3.5-5.1) 07/21/20 21:08 BUN 15 mg/dL (7-18) 07/21/20 21:08 Creatinine 1.24 mg/dL (0.55-1.3) 07/21/20 21:08 Glucose 191 mg/dL (74-106) H 07/21/20 21:08 Total Bilirubin 1.1 mg/dL (0.2-1.0) H 07/21/20 21:08 AST 22 U/L (15-37) 07/21/20 21:08 ALT 21 U/L (12-78) 07/21/20 21:08 Alkaline Phosphatase 115 U/L (45-117) 07/21/20 21:08 Lipase 79 U/L (73-393) 07/21/20 21:08 Home Medications: Hydrocodone 7.5/APAP 325 [[place] 7.5/325 mg*] 1.5 tab PO BID PRN 02/02/18 Leflunomide 20 mg PO DAILY 02/02/18 Prednisolone [Millipred] 5 mg PO DAILY 02/02/18 carvediloL [Coreg*] 12.5 mg PO BID 02/02/18 Amox/Clavulanate [Augmentin 875-125 Tab] 1 each PO BID #14 tab 07/22/20 Hydroxychloroquine [Plaquenil*] 400 mg PO DAILY 07/22/20 New Medications: Amox/Clavulanate [Augmentin 875-125 Tab] 1 each PO BID #14 tab Followup: NONE,NONE [Primary Care Provider] - 1-2 Weeks
[2020-07-22 12:09] LABS: Urine Bacteria <20 /HPF (<20); Urine RBC <5 /HPF (NONE SEEN)
== END 2020-07-22 11:36 | disposition home or self-care (01) ==
LOC: ER 20:19 → ERHOLD 07-22 01:51 → INTOOBSV 07-22 01:51
PROVIDERS: ADMIT Internal Medicine; ATTEND Internal Medicine
DX: J18.9 Pneumonia, unspecified organism (principal); I12.9 Hypertensive chronic kidney disease with stage 1 through stage 4 chronic kidney disease, or unspecified chronic kidney disease; N18.30 Chronic kidney disease, stage 3 unspecified; M06.9 Rheumatoid arthritis, unspecified; Z20.822 Contact with and (suspected) exposure to COVID-19; R94.31 Abnormal electrocardiogram [ECG] [EKG]; M79.7 Fibromyalgia; E78.5 Hyperlipidemia, unspecified; E03.9 Hypothyroidism, unspecified; E66.9 Obesity, unspecified; M54.9 Dorsalgia, unspecified; G89.29 Other chronic pain; Z96.653 Presence of artificial knee joint, bilateral; Z23 Encounter for immunization
CPT/HCPCS: 0240U; 36415; 71045; 71275; 80048; 80076; 81015; 82728; 82805; 83605; 83690; 84145; 84484; 85025; 85379; 85610; 85730; 86140; 87040; 87070; 87077; 87081; 87086; 87088; 87186; 87205; 90471; 90732; 93005; 96361; 96365; 96375; 99285; G0378; J0696; J1650; J2405; J2543; J7030; J7512; Q2035; Q9967